=== PATIENT | female | born 1980 | race Caucasian/White ===

== ENCOUNTER 2023-11-11 21:15 | Emergency (ER) | payer OTHER, SELFPAY ==
[2023-11-11] VITALS (11 sets, daily range): BP systolic 121–135; BP diastolic 75–84; PULSE 88–102; TEMP 36.8; O2SAT 93–99; BMI 22.3
--- NOTE | 2023-11-11 21:29 | PC.NURSE ---
Patient reports eating a fast food sandwich approx. 30-60 minutes ago, reports allergy to tomato and there was a tomato on sandwich. Patient reports taking epi. pen immediately following. Denies any SOB. Reports only symptom is stomach cramping, nausea with dry heaves.
--- NOTE | 2023-11-11 21:49 | ED.NAVMDI1 ---
HPI - Nausea/Vomiting/Diarrhea General Chief complaint: Nausea/Vomiting/Diarrhea Stated complaint: NAUSEA/VOMITING Time Seen by Provider: 11/11/23 21:45 Source: patient Mode of arrival: walk-in History of Present Illness HPI Narrative: patient states she has an allergy to tomatoes. States Harish Alonso had catchup on her hamburger she took a bite and swallowed and became ill. describes dry heaving and loose stools. She took Benadry and used her Epi pen. She is now feeling better but followed instructions on the Epi pen that she should come to the hospital. No rash or dyspnea. Related Data Home Medications ?Medication ?Instructions ?Recorded ?Confirmed cetirizine 10 mg tablet 10 mg PO DAILY 11/11/23 11/11/23 cholecalciferol (vitamin D3) 10 400 unit PO DAILY 11/11/23 11/11/23 mcg (400 unit) tablet (Vitamin D3) dexlansoprazole 60 mg 60 mg PO DAILY 11/11/23 11/11/23 capsule,biphase delayed release diclofenac sodium 75 mg 75 mg PO Q12H 11/11/23 11/11/23 tablet,delayed release diphenoxylate-atropine 2.5 1 tab PO Q6H PRN diarrhea 11/11/23 11/11/23 mg-0.025 mg tablet epinephrine 0.3 mg/0.3 mL 0.3 mg subcut Q10M PRN anaphylaxis 11/11/23 11/11/23 injection, auto-injector hyoscyamine sulfate 0.125 mg tablet 0.125 mg PO Q4H PRN dyspepsia 11/11/23 11/11/23 midodrine 10 mg tablet 10 mg PO TID 11/11/23 11/11/23 omeprazole 40 mg capsule,delayed 40 mg PO DAILY 11/11/23 11/11/23 release ondansetron 4 mg disintegrating 4 mg PO Q6H PRN nausea and vomiting 11/11/23 11/11/23 tablet potassium chloride 20 mEq 20 meq PO DAILY 11/11/23 11/11/23 tablet,extended release(part/cryst) pramipexole 0.125 mg tablet 0.125 mg PO DAILY 11/11/23 11/11/23 pramipexole 0.25 mg tablet 0.25 mg PO .QHS 11/11/23 11/11/23 terbinafine HCl 250 mg tablet 250 mg PO DAILY 11/11/23 11/11/23 tizanidine 4 mg tablet 4 mg PO Q8H PRN muscle spasticity 11/11/23 11/11/23 venlafaxine 75 mg capsule,extended 75 mg PO DAILY 11/11/23 11/11/23 release 24 hr Allergies Allergy/AdvReac Type Severity Reaction Status Date / Time Penicillins Allergy Mild Rash Verified 11/11/23 21:26 Review of Systems ROS Status of ROS 10 or more systems reviewed and unremarkable except as noted in history and below Exam Constitutional Vital Signs, click to edit/add: Last Vital Signs Temp 98.2 F 11/11/23 21:20 Pulse 88 11/11/23 22:51 Resp 16 11/11/23 22:51 BP 121/75 11/11/23 22:51 Pulse Ox 97 11/11/23 22:51 O2 Del Method Room Air 11/11/23 22:51 Common normals: no apparent distress, average body habitus, oriented x3, no limitations and healthy appearing HENMT Common normals: normocephalic and head/scalp atraumatic Eye Common normals: PERRL, EOMs intact bilaterally and conjunctivae normal Respiratory Common normals: normal respiratory effort, no retractions, no use of accessory muscles and clear to auscultation bilaterally Cardio Common normals: regular rate, regular rhythm and S1 normal heart sound GI Common normals: Normal to inspection, nondistended, normoactive bowel sounds present, soft to palpation and non-tender Extremity Common normals: normal to inspection and full ROM Neuro Common normals: oriented x3, CN's II-XII intact bilaterally, moves all extremities and no focal motor deficits Psych Appearance: grossly normal Course Vital Signs Vital signs: Vital Signs Temperature 98.2 F 11/11/23 21:20 Pulse Rate 102 H 11/11/23 21:20 Respiratory Rate 16 11/11/23 21:20 Blood Pressure 135/84 11/11/23 21:20 Pulse Oximetry 99 11/11/23 21:20 Oxygen Delivery Method Room Air 11/11/23 21:20 Temperature 98.2 F 11/11/23 21:20 Pulse Rate 88 11/11/23 22:51 Respiratory Rate 16 11/11/23 22:51 Blood Pressure 121/75 11/11/23 22:51 Pulse Oximetry 97 11/11/23 22:51 Oxygen Delivery Method Room Air 11/11/23 22:51 Discharge Plan Discharge Stand Alone Forms: Portal Instructions Chief Complaint: Nausea/Vomiting/Diarrhea Clinical Impression: Allergy, food, Allergic reaction Patient Disposition: Home, Self-Care Prescriptions / Home Meds: No Action cetirizine 10 mg tablet 10 mg PO DAILY cholecalciferol (vitamin D3) [Vitamin D3] 10 mcg (400 unit) tablet 400 unit PO DAILY dexlansoprazole 60 mg capsule,biphase delayed releas 60 mg PO DAILY diclofenac sodium 75 mg tablet,delayed release (DR/EC) 75 mg PO Q12H diphenoxylate-atropine 2.5-0.025 mg tablet 1 tab PO Q6H PRN (Reason: diarrhea) epinephrine 0.3 mg/0.3 mL auto-injector 0.3 mg subcut Q10M PRN (Reason: anaphylaxis) hyoscyamine sulfate 0.125 mg tablet 0.125 mg PO Q4H PRN (Reason: dyspepsia) midodrine 10 mg tablet 10 mg PO TID omeprazole 40 mg capsule,delayed release(DR/EC) 40 mg PO DAILY ondansetron 4 mg tablet,disintegrating 4 mg PO Q6H PRN (Reason: nausea and vomiting) potassium chloride 20 mEq tablet,ER particles/crystals 20 meq PO DAILY pramipexole 0.125 mg tablet 0.125 mg PO DAILY pramipexole 0.25 mg tablet 0.25 mg PO .QHS terbinafine HCl 250 mg tablet 250 mg PO DAILY tizanidine 4 mg tablet 4 mg PO Q8H PRN (Reason: muscle spasticity) venlafaxine 75 mg capsule,extended release 24hr 75 mg PO DAILY Print Language: Nicaraguan Instructions: Food Allergy (ED) Referrals: Honorio Eaton MD [Primary Care Provider] - 1 week Discharge Date/Time: 11/11/23 23:11
[2023-11-11] MEDS: PREDNISONE 20 MG TABLET 60 MG PO (22:07)
== END 2023-11-11 23:11 | disposition home or self-care (01) ==
PROVIDERS: Emergency Provider Internal Medicine; PCP Family Medicine
DX: T78.1XXA Other adverse food reactions, not elsewhere classified, initial encounter (principal); R19.7 Diarrhea, unspecified; Z79.899 Other long term (current) drug therapy
CPT/HCPCS: 99283

== ENCOUNTER 2024-02-15 13:46 | Outpatient (OUT) | payer OTHER, SELFPAY ==
--- NOTE | 2024-02-15 13:50 | XR_ITS ---
[address] [address] Patient Name: FRAN ELLIS MRN: [id number] date: 1980 Sex: F Assigned Patient Location: LAB Current Patient Location: Accession/Order Number: [id number] Exam Date: 02/15/2024 13:52 Report Date: 02/19/2024 08:05 At the request of: ANJANA VASQUEZ Procedure: XR ribs BI min 4V w CXR1V EXAMINATION: XR ribs BI min 4V w CXR1V HISTORY: Rib Pain R07.81 COMPARISON: 01/03/2021 FINDINGS: LUNGS: No significant pulmonary parenchymal abnormalities. PLEURA: No pneumothorax, effusion, or pleural thickening. MEDIASTINUM: No visible mass or adenopathy. CARDIAC: No cardiomegaly or cardiac silhouette abnormality. RIBS: No acute rib fracture OTHER: Negative. XR/XR ribs BI min 4V w CXR1V IMPRESSION: Clear lungs No acute rib fracture Electronically authenticated by: EMILY HARRIS Date: 02/19/2024 08:05
== END 2024-02-15 13:47 | disposition home or self-care (01) ==
LOC: LAB 13:47
PROVIDERS: PCP Family Medicine; Visit Provider Family Medicine
DX: R07.81 Pleurodynia (principal)
CPT/HCPCS: 71111

== ENCOUNTER 2024-06-16 20:07 | Emergency (ER) | payer OTHER, SELFPAY ==
[2024-06-16 20:17] VITALS: BP 137/81; PULSE 81; TEMP 36.6; O2SAT 99; BMI 25.1
--- NOTE | 2024-06-16 20:28 | ED_ITS ---
HPI - Dental/Oral General Stated complaint: dental Time Seen by Provider: 06/16/24 20:13 History of Present Illness HPI Narrative: pt had a filling fall out of a bottom right molar. She went to because of the pain and was prescribed tylenol with codeine and clindamycin. The Toradol in jection that they gave her helped at first but has since worn off. She complains of pain in that area. Apparently she could not get in with her dentist. Related Data Home Medications ?Medication ?Instructions ?Recorded ?Confirmed cetirizine 10 mg tablet 10 mg PO DAILY 11/11/23 11/11/23 cholecalciferol (vitamin D3) 10 400 unit PO DAILY 11/11/23 11/11/23 mcg (400 unit) tablet (Vitamin D3) dexlansoprazole 60 mg 60 mg PO DAILY 11/11/23 11/11/23 capsule,biphase delayed release diclofenac sodium 75 mg 75 mg PO Q12H 11/11/23 11/11/23 tablet,delayed release diphenoxylate-atropine 2.5 1 tab PO Q6H PRN diarrhea 11/11/23 11/11/23 mg-0.025 mg tablet epinephrine 0.3 mg/0.3 mL 0.3 mg subcut Q10M PRN anaphylaxis 11/11/23 11/11/23 injection, auto-injector hyoscyamine sulfate 0.125 mg tablet 0.125 mg PO Q4H PRN dyspepsia 11/11/23 11/11/23 midodrine 10 mg tablet 10 mg PO TID 11/11/23 11/11/23 omeprazole 40 mg capsule,delayed 40 mg PO DAILY 11/11/23 11/11/23 release ondansetron 4 mg disintegrating 4 mg PO Q6H PRN nausea and vomiting 11/11/23 11/11/23 tablet potassium chloride 20 mEq 20 meq PO DAILY 11/11/23 11/11/23 tablet,extended release(part/cryst) pramipexole 0.125 mg tablet 0.125 mg PO DAILY 11/11/23 11/11/23 pramipexole 0.25 mg tablet 0.25 mg PO .QHS 11/11/23 11/11/23 terbinafine HCl 250 mg tablet 250 mg PO DAILY 11/11/23 11/11/23 tizanidine 4 mg tablet 4 mg PO Q8H PRN muscle spasticity 11/11/23 11/11/23 venlafaxine 75 mg capsule,extended 75 mg PO DAILY 11/11/23 11/11/23 release 24 hr clindamycin HCl 300 mg capsule 300 mg PO Q8H 06/16/24 06/16/24 Previous Rx's ?Medication ?Instructions ?Recorded ketorolac 10 mg tablet 10 mg PO Q8H PRN pain 5 days #15 06/16/24 tabs Allergies Allergy/AdvReac Type Severity Reaction Status Date / Time Penicillins Allergy Mild Rash Verified 06/16/24 20:21 PFSH PFSH Social History Little interest or pleasure in doing things: not at all Feeling down, depressed, or hopeless: not at all Exam Narrative Exam Narrative: General: The patient is comfortable, alert and oriented x3, well appearing, non toxic in no apparent distress. Head: Atraumatic and normocephalic. Eyes: Normal conjunctiva ENT: The oropharynx is normal. No pharyngeal erythema, uvular edema, tonsillar exudates, asymmetry or trismus. Uvula is midline. Mouth is normal to inspection with the exception of a pain on percussion of the tooth #30 which is missing a filling. There is no evidence of facial asymmetry or abscess formation. Floor of the mouth is soft. No tenderness in the submental or submandibular space. No tongue elevation or deviation. The patient has no evidence of periapical abscess, gingivitis or other acute pathology. Airway is patent. Neck: The neck demonstrates normal range of motion. No meningeals signs are pre sent. No stridor. No masses or lymphandenopathy noted. Respiratory: No acute distress, lungs are clear to auscultation, no wheezing, rhonchi, or rales noted. No stridor or retractions are noted. Cardiovascular: Regular rate and rhythm Skin: The skin exam shows no evidence of rashes Neuro: Alert and oriented x4, normal speech Lymphatic: No cervical lymphadenopathy Constitutional Vital Signs, click to edit/add: Last Vital Signs Temp 97.8 F 06/16/24 20:17 Pulse 81 06/16/24 20:17 Resp 18 06/16/24 20:17 BP 137/81 06/16/24 20:17 Pulse Ox 99 06/16/24 20:17 O2 Del Method Room Air 06/16/24 20:17 Course Vital Signs Vital signs: Vital Signs Temperature 97.8 F 06/16/24 20:17 Pulse Rate 81 06/16/24 20:17 Respiratory Rate 18 06/16/24 20:17 Blood Pressure 137/81 06/16/24 20:17 Pulse Oximetry 99 06/16/24 20:17 Oxygen Delivery Method Room Air 06/16/24 20:17 Temperature 97.8 F 06/16/24 20:17 Pulse Rate 81 06/16/24 20:17 Respiratory Rate 18 06/16/24 20:17 Blood Pressure 137/81 06/16/24 20:17 Pulse Oximetry 99 06/16/24 20:17 Oxygen Delivery Method Room Air 06/16/24 20:17 MDM - Dental/Oral MDM Narrative Medical decision making narrative: The patient is already on clindamycin and has Tylenol with codeine for pain. She was given an oral dose of Toradol and discharged home with a prescription for additional Toradol. She was instructed to avoid any additional NSAIDs i ncluding Motrin, ibuprofen, Advil and Aleve, while taking the Toradol. She was also given a dentist referral list on discharge. Discharge Plan Discharge Clinical Impression: Pain, dental Patient Disposition: Home, Self-Care Time of Disposition Decision: 20:30 Prescriptions / Home Meds: New ketorolac 10 mg tablet 10 mg PO Q8H PRN (Reason: pain) 5 Days Qty: 15 0RF No Action clindamycin HCl 300 mg capsule 300 mg PO Q8H cetirizine 10 mg tablet 10 mg PO DAILY cholecalciferol (vitamin D3) [Vitamin D3] 10 mcg (400 unit) tablet 400 unit PO DAILY dexlansoprazole 60 mg capsule,biphase delayed releas 60 mg PO DAILY diclofenac sodium 75 mg tablet,delayed release (DR/EC) 75 mg PO Q12H diphenoxylate-atropine 2.5-0.025 mg tablet 1 tab PO Q6H PRN (Reason: diarrhea) epinephrine 0.3 mg/0.3 mL auto-injector 0.3 mg subcut Q10M PRN (Reason: anaphylaxis) hyoscyamine sulfate 0.125 mg tablet 0.125 mg PO Q4H PRN (Reason: dyspepsia) midodrine 10 mg tablet 10 mg PO TID omeprazole 40 mg capsule,delayed release(DR/EC) 40 mg PO DAILY ondansetron 4 mg tablet,disintegrating 4 mg PO Q6H PRN (Reason: nausea and vomiting) potassium chloride 20 mEq tablet,ER particles/crystals 20 meq PO DAILY pramipexole 0.125 mg tablet 0.125 mg PO DAILY pramipexole 0.25 mg tablet 0.25 mg PO .QHS terbinafine HCl 250 mg tablet 250 mg PO DAILY tizanidine 4 mg tablet 4 mg PO Q8H PRN (Reason: muscle spasticity) venlafaxine 75 mg capsule,extended release 24hr 75 mg PO DAILY Print Language: [place]guill[place] Instructions: Toothache (ED) Additional Instructions: give patient our Dentist referral list
[2024-06-16] MEDS: KETOROLAC TROMETHAMINE 10 MG TABLET PO (20:49)
== END 2024-06-16 20:54 | disposition home or self-care (01) ==
PROVIDERS: Emergency Provider Emergency Medicine; PCP Family Medicine
DX: K08.89 Other specified disorders of teeth and supporting structures (principal)
CPT/HCPCS: 99283

== ENCOUNTER 2024-09-05 12:45 | Outpatient (OUT) | payer OTHER, SELFPAY ==
--- NOTE | 2024-09-05 12:50 | MR_ITS ---
[address] [address] Patient Name: FRAN ELLIS MRN: [facility]:[id number] date: 1980 Sex: F Assigned Patient Location: MRI Current Patient Location: MRI Accession/Order Number: [id number] Exam Date: 09/05/2024 16:26 Report Date: 09/05/2024 16:35 At the request of: FORREST CURTIS NP Procedure: MR head/brain wo/w con MR head/brain wo/w con 09/05/2024 2:25 PM SIGN AND SYMPTOMS: Hyperreflexia, demyelinating disease PROTOCOL: Multiplanar multisequence MR images of the brain with and without IV contrast COMPARISON: None. FINDINGS: Extra axial spaces: Age appropriate. Hemorrhage: None. Ventricular system: Within normal limits. Basal cisterns: Within normal limits and not effaced. Cerebral parenchyma: There is a single nonspecific focus of T2 FLAIR hyperintense signal in the parasagittal right frontal subcortical white matter. Midline shift: None.. Cerebellum: Within normal limits. Brainstem: Within normal limits. OTHER: Calvarium: Normal marrow signal. Vascular system: Satisfactory flow voids within the anterior and posterior circulation. Visualized Paranasal sinuses: Their is polypoid mucosal thickening in the left maxillary sinus. Visualized Orbits: Within normal limits. Visualized upper cervical spine: Within normal limits. Sella and skull base: Within normal limits. MR/MR head/brain wo/w con IMPRESSION: No acute intracranial pathology or abnormal postcontrast enhancement. There is a single nonspecific focus of T2 FLAIR hyperintense signal in the parasagittal right frontal subcortical white matter. Their is polypoid mucosal thickening in the left maxillary sinus. Impression dictated by: Sai Maurice M.D.09/05/2024 4:35 PM Dictation Location: [place] [id number] Electronically authenticated by: [id number] Y Date: 09/05/2024 16:35
--- NOTE | 2024-09-05 12:51 | MR_ITS ---
[address] [address] Patient Name: FRAN ELLIS MRN: [facility]:[id number] date: 1980 Sex: F Assigned Patient Location: MRI Current Patient Location: MRI Accession/Order Number: [id number] Exam Date: 09/05/2024 16:22 Report Date: 09/05/2024 16:26 At the request of: FORREST CURTIS NP Procedure: MR cervical spine wo/w con MR cervical spine wo/w con 09/05/2024 2:25 PM SIGNS AND SYMPTOMS: Left-sided, possible demyelinating disease PROTOCOL: Multiplanar multisequence MR images of the cervical spine were obtained with and without IV contrast COMPARISON: Multiplanar multisequence MR images of the cervical spine without IV contrast FINDINGS: There is straightening and mild reversal of the normal cervical lordosis. The bones are otherwise in anatomic alignment. There is preservation of vertebral body heights. There is mild disc height loss at C4-C5, C5-6, and C6-C7. The marrow signal is within normal limits. The cord is normal in signal. No epidural or paraspinous fluid collection is appreciated. The visualized paraspinous soft tissues are within normal limits. The prevertebral soft tissues are within normal limits. At C2-C3: There is a normal disc, central canal, and neural foramen. At C3-C4: There is a normal disc, central canal, and neural foramen. At C4-C5: There is a broad-based disc bulge without joint spurring. There is mild spinal canal narrowing and mild bilateral neural foraminal narrowing. At C5-C6: There is facet and operative joint degenerative change with a mild broad-based disc bulge. There is mild left neural foraminal narrowing with mild spinal canal narrowing. At C6-C7: There is a broad-based disc bulge without joint spurring and facet hypertrophy. There is mild bilateral neural foraminal narrowing without significant spinal canal narrowing. At C7-T1: There is a normal disc, central canal, and neural foramen. MR/MR cervical spine wo/w con IMPRESSION: No cord compression, cord signal abnormality, or abnormal postcontrast enhancement. At C4-C5: There is a broad-based disc bulge without joint spurring. There is mild spinal canal narrowing and mild bilateral neural foraminal narrowing. At C5-C6: There is facet and operative joint degenerative change with a mild broad-based disc bulge. There is mild left neural foraminal narrowing with mild spinal canal narrowing. At C6-C7: There is a broad-based disc bulge without joint spurring and facet hypertrophy. There is mild bilateral neural foraminal narrowing without significant spinal canal narrowing. Impression dictated by: Sai Maurice M.D.09/05/2024 4:26 PM Dictation Location: [place] [address] Electronically authenticated by: [id number] Y Date: 09/05/2024 16:26
--- OUTSIDE RECORDS SUMMARY | 2024-09-05 12:52 | XMS_ITS | CCD ---
Author Organization [facility] Care Team Providers Care Lead Mechanical Engineer Name Role Phone NAWRAS, ALI T Unavailable Unavailable NAWRAS, ALI T Unavailable Unavailable NADEREMarian, HONORIO Unavailable Unavailable NADERER, HONORIO Unavailable Unavailable TN Unavailable Unavailable NAWRAS, ALI T Unavailable Unavailable TN Unavailable Unavailable BENITO ROSS Unavailable Unavailable PHYSICIAN, DEFAULT Unavailable Unavailable PHYSICIAN, DEFAULT Unavailable Unavailable NAWRAS, ALI T Unavailable Unavailable NAWRAS, ALI T Unavailable Unavailable NADEREMarian, HONORIO Unavailable Unavailable NADERER, HONORIO Unavailable Unavailable Unavailable Primary Care Provider Unavailabl e Unavailable Primary Care Provider Unavailabl e NADERER, DR HONORIO Bowen Primary Care Unavailable ZIEBER, DR CHEYENNE Fonseca Consulting Unavailable PAY, DR ARCE Admitting Unavailable PAY, DR ARCE Attending Unavailable PAY, DR ARCE Consulting Unavailable WEST, DR EMILY Willis Consulting Unavailable NADERER, DR HONORIO Bowen Primary Care Unavailable NADERER, DR HONORIO Bowen Admitting Unavailable NADERER, DR HONORIO Bowen Attending Unavailable NADERER, DR HONORIO Bowen Consulting Unavailable NADERER, DR HONORIO Bowen Admitting Unavailable NADERER, DR HONORIO Bowen Attending Unavailable NADERER, DR HONORIO Bowen Consulting Unavailable NADERER, DR HONORIO Bowen Primary Care Unavailable NADERER, DR HONORIO Bowen Primary Care Unavailable FAWWAD, MELENDEZ H Admitting Unavailable FAWWAD, MELENDEZ H Attending Unavailable FAWWAD, MELENDEZ H Consulting Unavailable NADERER, DR HONORIO Bowen Primary Care Unavailable NADERER, DR HONORIO Bowen Admitting Unavailable NADERER, DR HONORIO Bowen Attending Unavailable NADERER, DR HONORIO Bowen Consulting Unavailable NADERER, DR HONORIO Bowen Admitting Unavailable NADERER, DR HONORIO Bowen Attending Unavailable NADERER, DR HONORIO Bowen Primary Care Unavailable NADERER, DR HONORIO Bowen Admitting Unavailable NADERER, DR HONORIO Bowen Attending Unavailable NADERER, DR HONORIO Bowen Consulting Unavailable PEDRO, DR HONORIO Bowen Primary Care Unavailable Pedro WASHINGTON, Honorio Primary Care Provider [phone] Pedro WASHINGTON, Honorio Primary Care Provider [phone] Honorio Vasquez MD Primary Care Provider Pedro WASHINGTON, Honorio Walls Primary Care Provider HONORIO VASQUEZ Referring Unavailable BUTNARIU, TANNER I Attending Unavailable HONORIO VASQUEZ Primary Care Unavailable HONORIO VASQUEZ Primary Care Unavailable GRACE FLORES Attending Unavailable SELF, SELF Referring Unavailable BUTNARIU, TANNER I Attending Unavailable REMY, BAILEY Referring Unavailable SELF, SELF Referring Unavailable BUTNARIU, TANNER I Attending Unavailable SELF, SELF Referring Unavailable BUTNARIU, TANNER I Attending Unavailable BUTNARIU, TANNER I Attending Unavailable BUTNARIU, TANNER I Referring Unavailable HONORIO VASQUEZ Primary Care Unavailable BUTNARIU, TANNER I Referring Unavailable BUTNARIU, TANNER I Attending Unavailable HONORIO VASQUEZ Primary Care Unavailable BUTNARIU, TANNER I Attending Unavailable SELF, SELF Referring Unavailable HONORIO VASQUEZ Primary Care Unavailable BUTNARIU, TANNER I Attending Unavailable SELF, SELF Referring Unavailable HONORIO VASQUEZ Primary Care Unavailable BUTNARIU, TANNER I Referring Unavailable BUTNARIU, TANNER I Attending Unavailable Honorio Vasquez MD Primary Care Provider HONORIO VASQUEZ Primary Care Unavailabl e SARITHA, HALEY Attending Unavailable Honorio Vasquez MD Primary Care Unavail able Sylvia Escobar PA-C Attending Unavaila ble No, Physician Primary Care Provider Unavailabl e LEATHA HAWKINS Attending Unavai lable NO, PHYSICIAN Primary Care Unavailable LEATHA HAWKINS Referring Unavai lable LEATHA HAWKINS Attending Unavai lable NO, PHYSICIAN Primary Care Unavailable LEATHA HAWKINS Referring Unavai lable ALLAN, LEATHA CISNEROS Attending Unavai lable NO, PHYSICIAN Primary Care Unavailable HONORIO VASQUEZ Primary Care Unavailabl e JENNIFER ADHIKARI Attending HONORIO Arias Primary Care HONORIO Arias Primary Care HONORIO Arias Attending Unavailable LYNETTE JUSTICE Attending Unavailable LYNETTE JUSTICE Referring Unavailable LYNETTE JUSTICE Attending Unavailable Honorio Vasquez MD Primary Care Provider Honorio Vasquez MD Unavailable FORREST KIRAN Attending Unavailable LYNETTE JUSTICE Attending Unavailable Allergies Allergy Classification Reported Allergen(s) Allergy Type Date of Onset Reaction(s) Facility Penicillins (antibiotic) (5 sources) Penicillins Drug Allergy 8 [facility] (2 sources) Amoxicillin; Translations: [AMOXICILLIN] Drug Allergy 7 [facility] (14 sources) Penicillins Propensity to adverse reactions to drug 8 [facility] Work Phone: (20 sources) Amoxicillin Drug Allergy 7 Unknown, GI intolerance [facility] (1 source) Amoxicillin Drug Allergy 7 [facility] (2 sources) Latex; Translations: [LATEX] Drug allergy (disorder) 4 [facility] (5 sources) tomato allergenic extract; Translations: [TOMATO] Drug Allergy 4 Unknown [facility] (3 sources) Penicillins Propensity to adverse reactions to drug 8 [facility] (4 sources) Latex Propensity to adverse reactions to drug 4 Other (See Comments), Rash, Unknown [facility] (1 source) tomato allergenic extract Drug Allergy 3 Anaphylaxis [facility] (10 sources) Latex Allergy to substance 4 Rash [facility] (10 sources) tomato allergenic extract Drug Allergy 4 Anaphylaxis, Unknown [facility] Medications Current Medications Medication Drug Class(es) Dates Sig (Normalized) Sig (Original) acetaminophen 300 mg / codeine phosphate 30 mg oral tablet (5 sources) Opioid Agonist Start: 06-16-2024 take 1 tablet by mouth every six hours as needed acetaminophen-cod eine (Tylenol w/ Codeine #3) 300-30 MG tablet Take 1 tablet by mouth every 6 (six) hours if needed 06/16/2024 Active acetaminophen 325 mg / HYDROcodone bitartrate 5 mg oral tablet (7 sources) Opioid Agonist Start: 07-21-2023 End: 07-24-2023 HYDROcodone-aceta minophen (NORCO) 5-325 mg per tablet Indications: Left elbow fracture, closed, initial encounter Take 1 (one) tablet by mouth every 4 (four) hours as needed for pain (Days supply per fill: 3) Do not take while working or driving. . 18 tablet 0 07/21/2023 07/24/2023 Active Start: 04-20-2022 End: 04-20-2022 HYDROcodone-acetaminophen (N ORCO) 5-325 MG per tablet 1 tablet Start: 04-20-2022 End: 04-23-2022 HYDROcodone-acetaminophen (N ORCO) 5-325 MG per tablet Indications: Sprain of right knee, unspecified ligament, initial encounter , Knee effusion, right Take 1 tablet by mouth every 8 hours as needed for Pain for up to 3 days. Intended supply: 3 days. Take lowest dose possible to manage pain 9 tablet 0 04/20/2022 04/23/2022 Active atropine sulfate 0.025 mg / diphenoxylate hydrochloride 2.5 mg oral tablet (20 sources) Anticholinergic, Cholinergic Muscarinic Antagonist, Antidiarrheal Start: 01-17-2024 End: 07-15-2024 take 1 tablet by mouth four times daily as needed diphenoxylate-atropine (Lomotil) 2.5-0.025 MG tablet Indications: Diarrhea, unspecified TAKE 1 TABLET BY MOUTH FOUR TIMES DAILY NEEDED 60 tablet 2 07/15/2024 Active take 1 tablet by enoch th four times daily as needed diphenoxylate-atropine (LOMOTIL) 2.5-0.0 25 mg per tablet Take 1 (one) tablet by mouth 4 (four) times a day as needed . 0 Active diphenoxylate-at ropine 2.5-0.025 MG tablet EC/DR diphenoxylate-atropine 2.5 mg-0.025 mg tablet 0 Active benzonatate 200 mg oral capsule (7 sources) Non-narcotic Antitussive Start: 11-27-2021 take 1 capsule by mouth three times daily as needed benzonatate 200 MG capsule TAKE 1 CAPSULE BY MOUTH THREE TIMES DAILY NEEDED 0 11/27/2021 Active 12 hr buPROPion hydrochloride 150 mg extended release oral tablet (13 sources) Aminoketone Start: 12-06-2021 take 1 tablet by mouth once daily, then take 1 tablet by mouth twice daily buPROPion (WELLBUTRIN SR) 150 MG 12 hr tablet TAKE 1 TABLET BY MOUTH DAILY FOR 3 DAYS then TAKE 1 TABLET BY MOUTH TWICE DAILY 0 12/06/2021 Active carboxymethylcellulose sodium 5 mg/ml / glycerin 10 mg/ml / polysorbate 80 5 mg/ml ophthalmic solution (10 sources) Non-Standardized Chemical Allergen Start: 06-23-2023 Refresh Optive Advanced 0.5-1-0.5 % solution Administer 1 drop into affected eye(s) 3 (three) times a day as needed (as needed for dry eye up to 5 days) 06/23/2023 Active cetirizine hydrochloride 10 mg oral tablet (10 sources) Histamine-1 Receptor Antagonist Start: 03-05-2024 take 1 tablet by mouth once daily cetirizine (ZyrTEC) 10 MG tablet Indications: Chronic rhinosinusitis TAKE 1 TABLET BY MOUTH DAILY 30 tablet 5 03/05/2024 Active cholecalciferol 0.01 mg oral tablet (20 sources) Vitamin D Start: 09-20-2023 take 1 tablet by mouth once daily Cholecalciferol (VIT D3) 10 MCG (400 UNIT) tablet Indications: Vitamin D deficiency Take 1 tablet (10 mcg) by mouth Daily 30 tablet 5 09/20/2023 Active take 1 tablet by mouth once isidro y cholecalciferol, vitamin D3, 400 unit Tab Take 1 (one) tablet (400 Units total) by mouth daily . 0 Active clindamycin 300 mg oral capsule (5 sources) Lincosamide Antibacterial Start: 06-16-2024 take 1 capsule by mouth three times daily at mealtime clindamycin (Cleocin) 300 MG capsule Take 1 capsule (300 mg) by mouth 3 times a day for 10 days. Take with food 06/16/2024 Active cyclobenzaprine hydrochloride 10 mg oral tablet (2 sources) Muscle Relaxant Start: 07-30-2024 End: 10-28-2024 take 1 tablet by mouth at bedtime cyclobenzaprine (Flexeril) 10 MG tablet Indications: Migraine without aura and without status migrainosus, not intractable (CMS/HCC) Take 1 tablet (10 mg) by mouth at bedtime 30 tablet 2 07/30/2024 10/28/2024 Active dexlansoprazole 60 mg delayed release oral capsule (5 sources) Proton Pump Inhibitor Start: 03-14-2023 take 1 capsule by mouth once daily dexlansoprazole (DEXILANT) 60 mg capsule Take 1 (one) capsule (60 mg total) by mouth daily . 0 03/14/2023 Active Start: 11-06-2022 take 1 capsule by [facility] once daily dexlansoprazole (DEXILANT) 60 MG CPDR delayed release capsule Take 1 capsule by mouth daily 0 11/06/2022 Active diclofenac sodium 75 mg delayed release oral tablet (1 source) Nonsteroidal Anti-inflammatory Drug Start: 12-27-2022 End: 01-01-2023 take 1 tablet by mouth twice daily as needed for pain diclofenac (VOLTAREN) 75 MG EC tablet Take 1 tablet by mouth 2 times daily as needed for Pain 10 tablet 0 12/27/2022 01/01/2023 Active eluxadoline 75 mg oral tablet (10 sources) mu-Opioid Receptor Agonist take 1 tablet by mouth twice daily eluxadoline 75 mg Tab Take 1 (one) tablet (75 mg total) by mouth 2 (two) times a day . 0 Active [id number] 0.3 ml EPINEPHrine 1 mg/ml auto-injector (10 sources) alpha-Adrenergic Agonist, beta-Adrenergic Agonist, Catecholamine Start: 02-20-2023 EPINEPHrine (Epipen) 0.3 MG/0.3ML injection syringe Inject 1 Syringe as directed 1 (one) time 02/20/2023 Active fluticasone propionate 0.05 mg/actuat metered dose nasal spray (10 sources) Corticosteroid Start: 03-05-2024 take 1-2 spray(s) nasal route once daily fluticasone (Flonase) 50 MCG/ACT nasal spray Indications: Chronic rhinosinusitis instill 1-2 sprays IN EACH NOSTRIL DAILY *shake gently, BEFORE first use-prime pump, clean tip after use* 16 g 5 03/05/2024 Active hyoscyamine sulfate 0.125 mg oral tablet (20 sources) Start: 04-28-2024 take 1 tablet by mouth every four hours as needed hyoscyamine (Anaspaz,Levsin) 0.125 MG tablet Indications: Irritable bowel syndrome with diarrhea TAKE 1 TABLET BY MOUTH EVERY 4 HOURS NEEDED *MUST LAST 30 DAYS* 120 tablet 5 04/28/2024 Active Start: 11-06-2023 take 1 tablet by enoch th every four hours as needed hyoscyamine (Anaspaz,Levsin) 0.125 MG tablet Indications: Irritable bowel syndrome with diarrhea TAKE 1 TABLET BY MOUTH EVERY 4 HOURS NEEDED *MUST LAST 30 DAYS* 120 tablet 5 11/06/2023 Active hyoscyamine (LEV SIN) 0.125 mg tablet hyoscyamine sulfate 0.125 mg tablet 0 Active take 1 tablet by enoch th every four hours as needed hyoscyamine (ANASPAZ;LEVSIN) 125 MCG tablet Take 1 tablet by mouth every 4 hours as needed for Cramping 0 Active ibuprofen 800 mg oral tablet (7 sources) Nonsteroidal Anti-inflammatory Drug Start: 06-16-2024 ibuprofen 800 MG tablet TAKE 1 TABLET BY MOUTH EVERY 6 TO 8 HOURS NEEDED FOR PAIN for TEN days; take WITH FOOD 06/16/2024 Active Start: 09-10-2022 End: 09-10-2022 ibuprofen (ADVIL;MOTRIN) tab let 800 mg Start: 04-20-2022 End: 04-20-2022 ibuprofen (ADVIL;MOTRIN) tab let 600 mg ketorolac tromethamine 10 mg oral tablet (5 sources) Nonsteroidal Anti-inflammatory Drug, Cyclooxygenase Inhibitor Start: 06-16-2024 take 1 tablet by mouth every eight hours as needed for pain ketorolac (Toradol) 10 MG tablet TAKE 1 TABLET BY MOUTH EVERY 8 HOURS NEEDED FOR PAIN FOR 5 DAYS 06/16/2024 Active lidocaine 0.04 mg/mg medicated patch (2 sources) Antiarrhythmic, Amide Local Anesthetic Start: 11-28-2020 lidocaine 4 % external patch 1 patch Start: 11-28-2020 End: 12-28-2020 apply 1 dose transdermal route once daily lidocaine (LIDODERM) 5 % Place 1 patch onto the skin daily 12 hours on, 12 hours off. 30 patch 0 11/28/2020 12/28/2020 Active methocarbamol 500 mg oral tablet (10 sources) Muscle Relaxant Start: 02-07-2024 take 1 tablet by mouth in the morning methocarbamol (Robaxin) 500 MG tablet Indications: Cervical radiculopathy , Numbness and tingling , Neck pain Take 1 tablet (500 mg) by mouth in the morning and 1 tablet (500 mg) before bedtime. 20 tablet 2 02/07/2024 Active midodrine hydrochloride 10 mg oral tablet (20 sources) alpha-Adrenergi c Agonist Start: 03-05-2024 take 1 tablet by mouth three times daily midodrine (Proamatine) 10 MG tablet Indications: Syncope and collapse TAKE 1 TABLET BY MOUTH THREE TIMES DAILY 90 tablet 5 03/05/2024 Active Start: 06-18-2023 take 1 tablet by enoch three times daily midodrine (PROAMATINE) 10 MG tablet Take 1 (one) tablet (10 mg total) by mouth 3 (three) times a day . 0 06/18/2023 Active take 1 tablet by mouth once mido drine (PROAMATINE) 2.5 MG tablet Take 1 (one) tablet (2.5 mg total) by mouth once . 0 Active take 1 tablet by enoch th three times daily midodrine (PROAMATINE) 2.5 MG tablet Take 1 tablet by mouth 3 times daily 0 Active 24 hr nicotine 0.875 mg/hr transdermal system (7 sources) Cholinergic Nicotinic Agonist Start: 09-14-2021 apply 1 dose transdermal route once daily nicotine 21 MG/24HR Patch 24 HR patch APPLY 1 (ONE) patch to the skin DAILY 0 09/14/2021 Active olopatadine 1 mg/ml ophthalmic solution (13 sources) Histamine-1 Receptor Inhibitor Start: 06-23-2023 take 1 drop(s) into the eye(s) in the morning olopatadine (Patanol) 0.1 % ophthalmic solution Administer 1 drop into both eyes in the morning and 1 drop before bedtime. 06/23/2023 Active Start: 06-23-2023 take 1 drop(s) into the eye(s) at bedtime olopatadine (PATANOL) 0.1 % ophthalmic solution administer 1 drop into both eyes in the morning and before bedtime for 5 (FIVE) days 0 06/23/2023 Active omeprazole 40 mg delayed release oral capsule (10 sources) Proton Pump Inhibitor Start: 09-20-2023 take 1 capsule by mouth in the morning omeprazole (PriLOSEC) [address] capsule Indications: Gastroesophageal reflux disease without esophagitis Take 1 capsule (40 mg) by mouth in the morning and 1 capsule (40 mg) before bedtime. 60 capsule 5 09/20/2023 Active ondansetron 4 mg disintegrating oral tablet (20 sources) Serotonin-3 Receptor Antagonist Start: 03-17-2024 ondansetron ODT (Zofran-ODT) 4 MG disintegrating tablet Indications: Drug induced acute pancreatitis without necrosis or infection DISSOLVE 1 (ONE) TABLET ON THE TONGUE EVERY 6 HOURS NEEDED 30 tablet 3 03/17/2024 Active Start: 07-17-2023 ondansetron (Z OFRAN-ODT) 4 MG disintegrating tablet take 1 tablet by enoch th every eight hours as needed for nausea ondansetron (ZOFRAN) 4 MG tablet Take 1 tablet by mouth every 8 hours as needed for Nausea or Vomiting 0 Active microencapsulated potassium chloride 20 meq extended release oral tablet (10 sources) Start: 09-20-2023 take 1 tablet by mouth once daily potassium chloride CR (Klor-Con M20) 20 MEQ ER tablet Indications: Hypokalemia Take 1 tablet (20 mEq) by mouth Daily Do not crush or chew. 30 tablet 5 09/20/2023 Active pramipexole dihydrochloride 0.25 mg oral tablet (13 sources) Nonergot Dopamine Agonist Start: 09-20-2023 take 1 tablet by mouth at bedtime pramipexole (Mirapex) 0.25 MG tablet Indications: Restless leg syndrome Take 1 tablet (0.25 mg) by mouth at bedtime 30 tablet 5 09/20/2023 Active Start: 07-17-2023 pramipexole (M IRAPEX) 0.125 MG tablet predniSONE 10 mg oral tablet (16 sources) Start: 10-31-2023 take 6 tablets by mouth once daily, then take 4 tablets by mouth once daily, then take 2 tablets by mouth once daily, then take 1 tablet by mouth once daily predniSONE (Deltasone) 10 MG tablet Indications: Nummular eczema 6 PO daily x 3 days, 4 PO daily x 3 days, 2 PO daily x 3 days, 1 PO daily x 3 days 39 tablet 10/31/2023 Active Start: 09-22-2022 End: 10-04-2022 take 2 tablets by mouth once daily, then take 1.5 tablets by mouth once daily, then take 1 tablet by mouth once daily, then take 0.5 tablet by mouth once daily predniSONE (DELTASONE) 20 MG tablet Take 2 tablets by mouth daily for 3 days, THEN 1.5 tablets daily for 3 days, THEN 1 tablet daily for 3 days, THEN 0.5 tablets daily for 3 days. 15 tablet 0 09/22/2022 10/04/2022 Active Start: 09-10-2022 End: 09-10-2022 predniSONE (DELTASONE) table t 60 mg End: 09-22-2022 take 1 tablet by mouth once daily predniSONE (DELTASONE) 10 MG tablet Take 10 mg by mouth daily Taper Dose 0 09/22/2022 Discontinued (Therapy completed) rifAXIMin 550 mg oral tablet (1 source) Rifamycin Antibacterial Start: 11-06-2022 End: 11-20-2022 take 1 tablet by mouth three times daily rifAXIMin 550 MG tablet Indications: Irritable bowel syndrome with diarrhea , Gas bloat syndrome Take 1 tablet by mouth 3 (three) times a day for 14 days. 42 tablet 0 11/06/2022 11/20/2022 Active rimegepant 75 mg disintegrating oral tablet (2 sources) Start: 03-17-2024 End: 04-16-2024 take 1 tablet by mouth once Rimegepant Sulfate (Nurtec) 75 MG tablet dispersible Indications: Migraine without aura and without status migrainosus, not intractable (CMS/HCC) Take 1 tablet by mouth 1 (one) time if needed (onset of migraine) 8 tablet 11 03/17/2024 04/16/2024 Active SUMAtriptan 100 mg oral tablet (2 sources) Serotonin-1b and Serotonin-1d Receptor Agonist Start: 07-30-2024 End: 10-28-2024 take 1 tablet by mouth once SUMAtriptan (Imitrex) 100 MG tablet Indications: Migraine without aura and without status migrainosus, not intractable (CMS/HCC) Take 1 tablet (100 mg) by mouth 1 (one) time if needed for migraine (may repeat x1) 9 tablet 2 07/30/2024 10/28/2024 Active tacrolimus 0.001 mg/mg topical ointment (13 sources) Calcineurin Inhibitor Immunosuppressant Start: 04-04-2024 tacrolimus (Protopic) 0.1 % ointment Indications: Nummular dermatitis APPLY TO THE AFFECTED AREA(S) topically TWICE DAILY 60 g 3 04/04/2024 Active Start: 12-17-2023 tacrolimus (Pr otopic) 0.1 % ointment Indications: Nummular dermatitis APPLY TO THE AFFECTED AREA(S) TWICE DAILY 60 g 3 12/17/2023 Active Start: 07-17-2023 tacrolimus (TN OTOPIC) 0.1 % ointment terbinafine 250 mg oral tablet (13 sources) Allylamine Antifungal Start: 10-05-2023 take 1 tablet by mouth once daily terbinafine (LamISIL) 250 MG tablet Indications: Tinea unguium TAKE 1 TABLET BY MOUTH DAILY 30 tablet 2 10/05/2023 Active Start: 06-17-2023 take 1 tablet by enoch once daily terbinafine HCL (LAMISIL) 250 mg tablet Take 1 (one) tablet (250 mg total) by mouth daily . 0 06/17/2023 Active topiramate 25 mg oral tablet (2 sources) Start: 07-30-2024 End: 07-30-2025 take 1 tablet by mouth in the morning topiramate (Topamax) 25 MG tablet Indications: Migraine without aura and without status migrainosus, not intractable (CMS/HCC) Take 1 tablet (25 mg) by mouth in the morning and 1 tablet (25 mg) before bedtime. 60 tablet 2 07/30/2024 07/30/2025 Active traMADol hydrochloride 50 mg oral tablet (3 sources) Opioid Agonist Start: 07-18-2024 End: 07-30-2024 take 1 tablet by mouth every six hours for pain traMADol (Ultram) 50 MG tablet Indications: Cervical radiculopathy , Restless leg syndrome Take 1 tablet (50 mg) by mouth every 6 (six) hours if needed for severe pain for up to 10 days 20 tablet 07/18/2024 07/30/2024 Active triamcinolone acetonide 5 mg/ml topical cream (20 sources) Corticosteroid triamcinolone (ARISTOCORT) 0.5 % cream triamcinolone acetonide 0.5 % topical cream 0 Active 24 hr venlafaxine 75 mg extended release oral capsule (10 sources) Serotonin and Norepinephrine Reuptake Inhibitor Start: 04-04-2024 take 1 capsule by mouth once daily venlafaxine XR (Effexor XR) 75 MG 24 hr capsule Indications: Mild major depression, single episode (HCC) (CMS/HCC) TAKE 1 CAPSULE BY MOUTH DAILY * DO NOT CRUSH OR CHEW * 30 capsule 04/04/2024 Active Start: 10-31-2023 take 1 capsule by mo uth once daily venlafaxine XR (Effexor XR) 75 MG 24 hr capsule Indications: Mild major depression, single episode (HCC) (CMS/HCC) Take 1 capsule (75 mg) by mouth Daily Do not crush or chew. 30 capsule 5 10/31/2023 Active Completed/Discontinued Medications Medication Drug Class(es) Dates Sig (Normalized) Sig (Original) acetaminophen 325 mg oral tablet (1 source) Start: 04-20-2022 End: 04-20-2022 acetaminophen (TYLENOL) tablet 650 mg acetaminophen 325 mg / butalbital 50 mg / caffeine 40 mg oral tablet (1 source) Barbiturate, Central Nervous System Stimulant, Methylxanthine Start: 09-10-2022 End: 09-10-2022 butalbital-acetami nophen-caffeine (FIORICET, ESGIC) per tablet 1 tablet Start: 09-10-2022 End: 09-10-2022 esixrbbocu-cdsprnsloingz-les feine (FIORICET, ESGIC) per tablet 1 tablet Barium Sulfate (VOLUMEN/NEULUMEX) 0.1 % 900 mL (1 source) Start: 04-11-2022 End: 04-11-2022 Barium Sulfate (VOLUMEN/NEULUMEX) 0.1 % 900 mL diphenhydrAMINE hydrochloride 25 mg oral capsule (1 source) Histamine-1 Receptor Antagonist Start: 09-10-2022 End: 09-10-2022 diphenhydrAMINE (BENADRYL) capsule 25 mg gadoterate Meglumine (DOTAREM) 5 MMOL/10ML injection 3-60 mL (1 source) Start: 04-11-2022 End: 04-11-2022 gadoterate Meglumine (DOTAREM) 5 MMOL/10ML injection 3-60 mL hydrOXYzine hydrochloride 25 mg oral tablet (1 source) Antihistamine Start: 09-22-2022 End: 09-22-2022 hydrOXYzine HCl (ATARAX) tablet 25 mg iopamidol (ISOVUE-370) 76 % injection 75 mL (1 source) Start: 09-22-2022 End: 09-22-2022 iopamidol (ISOVUE-370) 76 % injection 75 mL pregabalin 100 mg oral capsule (4 sources) Start: 11-29-2021 End: 04-17-2022 take 1 capsule by mouth twice daily pregabalin 100 MG capsule Take 100 mg by mouth 2 times daily. 0 11/29/2021 04/17/2022 Discontinued 10 ml sodium chloride 9 mg/ml injection (1 source) Start: 04-11-2022 End: 04-11-2022 sodium chloride (PF) 0.9 % injection 1-250 mL Problems Active Problems Problem Classification Problem Date Documented Da te Episodic/Chronic Anxiety disorders (10 sources) Generalized anxiety disorder; Translations: [Generalized anxiety disorder] Onset: 4 09-04-2023 Chronic Cardiac dysrhythmias (4 sources) Cardiac arrhythmia; Translations: [Cardiac arrhythmia, unspecified] Onset: 2 04-17-2022 Chronic Digestive congenital anomalies (1 source) Other specified congenital malformations of intestine; Translations: [OTHER SPECIFIED CONGENITAL MALFORMATIONS OF INTESTINE] Onset: 8 Chronic Disorders of teeth and jaw (1 source) Other specified disorders of teeth and supporting structures; Translations: [Other specified disorders of teeth and supporting structures] Onset: 4 Episodic Epilepsy; convulsions (8 sources) Epilepsy, unspecified, not intractable, without status epilepticus; Translations: [Seizure disorder] Onset: 7 05-14-2024 Chronic Esophageal disorders (11 sources) Gastroesophageal reflux disease without esophagitis; Translations: [Gastro-esophageal reflux disease without esophagitis] Onset: 4 Chronic Fracture of upper limb (5 sources) Closed fracture of left elbow; Translations: [Unspecified fracture of lower end of left humerus, initial encounter for closed fracture] Onset: 4 07-21-2023 Episodic Gastritis and duodenitis (10 sources) Chronic superficial gastritis; Translations: [Chronic superficial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 wrist, and 2 views of the right forearm. COMPARISON: None FINDINGS: No displaced fracture or dislocation. Joint spaces are preserved. No aggressive osseous lesions or bony demineralization. Normal soft tissues. IMPRESSION: No fracture or osseous malalignment. Interpreted by: Dustin Thomas DO Signed by: Dustin Thomas DO 12/27/22 Final result Normal [facility] Radiology Study observation (narrative) [facility] XR RADIUS ULNA RIGHT (2 VIEW S)on 12-27-2022 XR RADIUS ULNA RIGHT (2 VIEWS) EXAM: XR HAND RIGHT (MIN 3 VIEWS), XR RADIUS ULNA RIGHT (2 VIEWS), XR WRIST RIGHT (MIN 3 VIEWS) REASON FOR EXAM: Reason for exam:->pain TECHNIQUE: 3 views of the right hand, 3 views of the right wrist, and 2 views of the right forearm. COMPARISON: None FINDINGS: No displaced fracture or dislocation. Joint spaces are preserved. No aggressive osseous lesions or bony demineralization. Normal soft tissues. IMPRESSION: No fracture or osseous malalignment. Interpreted by: Dustin Thomas DO Signed by: Dustin Thomas DO 12/27/22 Final result [facility] Radiology Study observation (narrative) [facility] XR WRIST RIGHT (MIN 3 VIEWS) on 12-27-2022 XR WRIST RIGHT (MIN 3 VIEWS) EXAM: XR HAND RIGHT (MIN 3 VIEWS), XR RADIUS ULNA RIGHT (2 VIEWS), XR WRIST RIGHT (MIN 3 VIEWS) REASON FOR EXAM: Reason for exam:->pain TECHNIQUE: 3 views of the right hand, 3 views of the right wrist, and 2 views of the right forearm. COMPARISON: None FINDINGS: No displaced fracture or dislocation. Joint spaces are preserved. No aggressive osseous lesions or bony demineralization. Normal soft tissues. IMPRESSION: No fracture or osseous malalignment. Interpreted by: Dustin Thomas DO Signed by: Dustin Thomas DO 12/27/22 Final result Normal [facility] Radiology Study observation (narrative) [facility] CT ABDOMEN PELVIS W IV CONTR Agnela 09-23-2022 CT ABDOMEN PELVIS W IV CONTRAST EXAMINATION: CT OF THE ABDOMEN AND PELVIS WITH CONTRAST 09/22/2022 9:37 pm TECHNIQUE: CT of the abdomen and pelvis was performed with the administration of intravenous contrast. Multiplanar reformatted images are provided for review. Automated exposure control, iterative reconstruction, and/or weight based adjustment of the mA/kV was utilized to reduce the radiation dose to as low as reasonably achievable. COMPARISON: None. HISTORY: ORDERING SYSTEM PROVIDED HISTORY: abd pain with history of colitis TECHNOLOGIST PROVIDED HISTORY: abd pain with history of colitis Decision Support Exception - unselect if not a suspected or confirmed emergency medical condition->Emergency Medical Condition (MA) FINDINGS: LOWER CHEST: Visualized portion of the lower chest demonstrates no acute abnormality. Small axial hiatal hernia KIDNEYS AND URINARY TRACT: 3 mm nonobstructing stone of superior pole of left kidney. . There is no evidence for hydronephrosis. The ureters are of normal course and caliber. ORGANS: Status post cholecystectomy. Multiple hypodense liver lesions are too small to characterize, likely representing simple cysts.. Visualized portions of the liver, spleen, pancreas, and adrenal glands demonstrate no acute abnormality. GI/BOWEL: No bowel obstruction. No evidence of acute appendicitis. Mild wall thickening Of ascending colon likely suggestive of colitis PELVIS: The bladder and pelvic organs are unremarkable. PERITONEUM/RETROPERI TONEUM: No free air or free fluid is noted. No pathologically enlarged lymphadenopathy. The vasculature do not demonstrate acute abnormality. BONES/SOFT TISSUES: The osseous structures demonstrate no acute abnormality. IMPRESSION: Appendix is normal. No obstructive uropathy. Status post cholecystectomy. Small axial hiatal hernia. Mild wall thickening of the ascending colon can be suggestive of colitis. 3 mm nonobstructing stone of superior pole of left kidney. Interpreted by: Chad Cai MD Signed by: Chad Cai MD 09/22/22 Final result Normal [facility] 09-22-2022 Anion gap [Moles/Vol] 10 mmol/L 9 - 17 mmol/L [facility] Calcium [Mass/Vol] 8.9 mg/dL 8.6 - 10. 4 mg/dL [facility] Chloride [Moles/Vol] 101 mmol/L 98 - 10 7 mmol/L [facility] CO2 [Moles/Vol] 26 mmol/L 20 - 31 mmol/L [facility] Creatinine [Mass/Vol] 0.87 mg/dL 0.50 - 0.90 mg/dL [facility] GFR/1.73 sq M.predicted MDRD (S/P/Bld) [Vol rate/Area] - PINF [facility] Comment on above: These results are not intended for use in patients <18 years of age. eGFR results are calculated without a race factor using the 2020 CKD-EPI equation. Careful clinical correlation is recommended, particularly when comparing to results calculated using previous equations. The CKD-EPI equation is less accurate in patients with extremes of muscle mass, extra-renal metabolism of creatine, excessive creatine ingestion, or following therapy that affects renal tubular secretion. Glucose [Mass/Vol] 92 mg/dL 70 - 99 mg/dL [facility] Potassium [Moles/Vol] 3.9 mmol/L 3.7 - 5.3 mmol/L [facility] Sodium [Moles/Vol] 137 mmol/L 135 - 144 mmol/L [facility] Urea nitrogen [Mass/Vol] 11 mg/dL 6 - 20 mg/dL [facility] Urea nitrogen/Creatinine (Bld) [Mass ratio] 13 - [facility] Basic Metabolic Profon 09-22 Anion gap [Moles/Vol] 10 mmol/L Normal 03-25 [facility] Comment on above: Performed By: #### C DP, HCG, BMP, LIP, LIVP, MG #### [facility] [address] [place] [address] Registered Pharmacist: Emily Uribe MD BUN/CRE Ratio 13 Normal 03-28 [facility] Comment on above: Performed By: #### C DP, HCG, BMP, LIP, LIVP, MG #### [facility] [address] [place] [address] Registered Pharmacist: Emily Uribe MD Calcium [Mass/Vol] 8.9 mg/dL Normal 8.6-10.4 [facility] Comment on above: Performed By: #### C DP, HCG, BMP, LIP, LIVP, MG #### [facility] [address] [place] [address] Registered Pharmacist: Emily Uribe MD Chloride [Moles/Vol] 101 mmol/L Normal 98-107 [facility] Comment on above: Performed By: #### C DP, HCG, BMP, LIP, LIVP, MG #### [facility] [address] [place] [address] Registered Pharmacist: Emily Uribe MD CO2 [Moles/Vol] 26 mmol/L Normal 20-31 [facility] Comment on above: Performed By: #### C DP, HCG, BMP, LIP, LIVP, MG #### [facility] [address] [place] [address] Registered Pharmacist: Emily Uribe MD Creatinine [Mass/Vol] 0.87 mg/dL Normal 0.50-0.90 [facility] Comment on above: Performed By: #### C DP, HCG, BMP, LIP, LIVP, MG #### [facility] [address] [place] [address] Registered Pharmacist: Emily Uribe MD GFR/1.73 sq M.predicted among non-blacks MDRD (S/P/Bld) [Vol rate/Area] mL/min/{1.73_m2} Normal >60 [facility] Comment on above: Result Comment: These results are not intended for use in patients <18 years of age. eGFR results are calculated without a race factor using the 2020 CKD-EPI equation. Careful clinical correlation is recommended, particularly when comparing to results calculated using previous equations. The CKD-EPI equation is less accurate in patients with extremes of muscle mass, extra-renal metabolism of creatine, excessive creatine ingestion, or following therapy that affects renal tubular secretion. Performed By: #### C DP, HCG, BMP, LIP, LIVP, MG #### [facility] [address] [place] [address] Registered Pharmacist: Emily Uribe MD Glucose [Mass/Vol] 92 mg/dL Normal 70-99 [facility] Comment on above: Performed By: #### C DP, HCG, BMP, LIP, LIVP, MG #### [facility] [address] [place] [address] Registered Pharmacist: Emily Uribe MD Potassium [Moles/Vol] 3.9 mmol/L Normal 3.7-5.3 [facility] Comment on above: Performed By: #### C DP, HCG, BMP, LIP, LIVP, MG #### [facility] [address] [place] [address] Registered Pharmacist: Emily Uribe MD Sodium [Moles/Vol] 137 mmol/L Normal 135-144 [facility] Comment on above: Performed By: #### C DP, HCG, BMP, LIP, LIVP, MG #### [facility] [address] [place] [address] Registered Pharmacist: Emily Uribe MD Urea nitrogen [Mass/Vol] 11 mg/dL Normal 6-20 [facility] Comment on above: Performed By: #### C DP, HCG, BMP, LIP, LIVP, MG #### [facility] [address] [place] [address] Registered Pharmacist: Emily Uribe MD CBC with Auto Differentialon 09-22-2022 Absolute Eos # 0.22 [facility] Absolute Immature Granulocyte [facility] Absolute Lymph # 2.32 [facility] Absolute Kimble # 0.52 [facility] Basophils (Bld) [#/Vol] 0.04 10*3/uL [facility] Basophils/100 WBC (Bld) 1 % 0 - 2 % [facility] Eosinophils/100 WBC (Bld) 4 % 1 - 4 % [facility] Hematocrit (Bld) [Volume fraction] 39.8 % 36.3 - 47.1 % [facility] Hemoglobin (Bld) [Mass/Vol] 13.8 g/dL 11.9 - 15.1 g/dL [facility] Immature granulocytes/100 WBC (Bld) 0 % 0 [facility] Interpretation and review of laboratory results Abnormal [facility] Lymphocytes/100 WBC (Bld) 38 % 24 - 43 % [facility] MCH (RBC) [Entitic mass] 32.2 pg 25.2 - 33.5 pg [facility] MCHC (RBC) [Mass/Vol] 34.7 g/dL 28.4 - 34.8 g/dL [facility] MCV (RBC) [Entitic vol] 93.0 fL 82.6 - 102.9 fL [facility] Monocytes/100 WBC (Bld) 8 % 3 - 12 % [facility] NRBC Automated 0.0 0.0 per 100 WBC [facility] Platelet distribution width (Bld) [Ratio] 11.5 % Low 11.8 - 14.4 % [facility] Platelet mean volume (Bld) [Entitic vol] 11.0 fL 8.1 - 13.5 fL [facility] Platelets (Bld) [#/Vol] 149 10*3/uL [facility] RBC (Bld) [#/Vol] 4.28 10*6/uL 3.95 - 5.1 1 m/uL [facility] Segmented neutrophils/100 WBC (Bld) 49 % 36 - 65 % [facility] Segs Absolute 3.07 [facility] WBC (Bld) [#/Vol] 6.2 10*3/uL [facility] CBC with Diffon 09-22-2022 Abs. Basophil 0.04 k/uL Normal 0.00-0.20 [facility] Comment on above: Performed By: #### C DP, HCG, BMP, LIP, LIVP, MG #### [facility] [address] [place] [address] Registered Pharmacist: Emily Uribe MD Abs.Imm.Granulocyte <0.03 Normal 0.00-0.30 [facility] Comment on above: Performed By: #### C DP, HCG, BMP, LIP, LIVP, MG #### [facility] [address] [place] [address] Dr. [place], [place] [address] Registered Pharmacist: Emily Uribe MD Abs.Neutrophil (Seg) 3.07 k/uL Normal 1.50-8.10 [facility] Comment on above: Performed By: #### C DP, HCG, BMP, LIP, LIVP, MG #### [address] [place], [place] [address] Registered Pharmacist: Emily Uribe MD Basophils/100 WBC (Bld) 1 % Normal 0-2 [facility] Comment on above: Performed By: #### C DP, HCG, BMP, LIP, LIVP, MG #### [address] [place], [facility] Registered Pharmacist: Emliy Uribe MD Eosinophils (Bld) [#/Vol] 0.22 10*3/uL Normal 0.00-0.44 [facility] Comment on above: Performed By: #### C DP, HCG, BMP, LIP, LIVP, MG #### [address] [place], [facility] Registered Pharmacist: Emily Uribe MD Eosinophils/100 WBC (Bld) 4 % Normal 1-4 [facility] Comment on above: Performed By: #### C DP, HCG, BMP, LIP, LIVP, MG #### [address] [place], [facility] Registered Pharmacist: Emily Uribe MD Erythrocyte distribution width (RBC) [Ratio] 11.5 % Low 11.8-14.4 [facility] Comment on above: Performed By: #### C DP, HCG, BMP, LIP, LIVP, MG #### [address] [place], [facility] Registered Pharmacist: Emily Uribe MD Hematocrit (Bld) [Volume fraction] 39.8 % Normal 36.3-47.1 [facility] Comment on above: Performed By: #### C DP, HCG, BMP, LIP, LIVP, MG #### [facility] [address] [place] [address] Registered Pharmacist: Emily Uribe MD Hemoglobin (Bld) [Mass/Vol] 13.8 g/dL Normal 11.9-15.1 [facility] Comment on above: Performed By: #### C DP, HCG, BMP, LIP, LIVP, MG #### [facility] [address] [place] [address] Registered Pharmacist: Emily Uribe MD Immature granulocytes/100 WBC (Bld) 0 % Normal 0 [facility] Comment on above: Performed By: #### C DP, HCG, BMP, LIP, LIVP, MG #### [address] [place], [place] [address] Registered Pharmacist: Emily Uribe MD Lymphocytes (Bld) [#/Vol] 2.32 10*3/uL Normal 1.10-3.70 [facility] Comment on above: Performed By: #### C DP, HCG, BMP, LIP, LIVP, MG #### [address] [place], [place] [address] Registered Pharmacist: Emily Uribe MD Lymphocytes/100 WBC (Bld) 38 % Normal 24-43 [facility] Comment on above: Performed By: #### C DP, HCG, BMP, LIP, LIVP, MG #### [facility] [address] [place], [place] [address] Registered Pharmacist: Emily Uribe MD MCH (RBC) [Entitic mass] 32.2 pg Normal 25.2-33.5 [facility] Comment on above: Performed By: #### C DP, HCG, BMP, LIP, LIVP, MG #### [facility] [address] [place], [facility] Registered Pharmacist: Emily Uribe MD MCHC (RBC) [Mass/Vol] 34.7 g/dL Normal 28.4-34.8 [facility] Comment on above: Performed By: #### C DP, HCG, BMP, LIP, LIVP, MG #### [facility] [address] [place], [facility] Registered Pharmacist: Emily Uribe MD MCV (RBC) [Entitic vol] 93.0 fL Normal 82.6-102.9 [facility] Comment on above: Performed By: #### C DP, HCG, BMP, LIP, LIVP, MG #### [address] [place], [facility] Registered Pharmacist: Emily Uribe MD Monocytes (Bld) [#/Vol] 0.52 10*3/uL Normal 0.10-1.20 [facility] Comment on above: Performed By: #### C DP, HCG, BMP, LIP, LIVP, MG #### [address] [place], [facility] Registered Pharmacist: Emily Uribe MD Monocytes/100 WBC (Bld) 8 % Normal 3-12 [facility] Comment on above: Performed By: #### C DP, HCG, BMP, LIP, LIVP, MG #### [address] [place], [place] [address] Registered Pharmacist: Emily Uribe MD Neutrophil (Seg) 49 % Normal 36-65 [facility] Comment on above: Performed By: #### C DP, HCG, BMP, LIP, LIVP, MG #### [facility] [address] [place], [facility]83 Registered Pharmacist: Emily Uribe MD NRBC Automated 0.0 per 100 WBC Normal 0.0 [facility] Comment on above: Performed By: #### C DP, HCG, BMP, LIP, LIVP, MG #### [facility] [address] [place], [place] [id number] Registered Pharmacist: Emily Uribe MD Platelet mean volume (Bld) [Entitic vol] 11.0 fL Normal 8.1-13.5 [facility] Comment on above: Performed By: #### C DP, HCG, BMP, LIP, LIVP, MG #### [facility] [address] [place] [address] Dr[address] [place], [facility]83 Registered Pharmacist: Emily Uribe MD Platelets (Bld) [#/Vol] 149 10*3/uL Normal 138-453 [facility] Comment on above: Performed By: #### C DP, HCG, BMP, LIP, LIVP, MG #### [address] [place] [address] Registered Pharmacist: Emily Uribe MD RBC (Bld) [#/Vol] 4.28 10*6/uL Normal 3.95-5.11 [facility] Comment on above: Performed By: #### C DP, HCG, BMP, LIP, LIVP, MG #### [address] [place], [facility]83 Registered Pharmacist: Emily Uribe MD WBC (Bld) [#/Vol] 6.2 10*3/uL Normal 3.5-11.3 [facility] Comment on above: Performed By: #### C DP, HCG, BMP, LIP, LIVP, MG #### [address] [place], [place] [id number] Registered Pharmacist: Emily Uribe MD CT ABDOMEN PELVIS W IV CONTR AST Additional Contrast? Noneon 09-22-2022 Appendix is normal. No obstructive uropathy. Status post cholecystectomy. Small axial hiatal hernia. Mild wall thickening of the ascending colon can be suggestive of colitis. 3 mm nonobstructing stone of superior pole of left kidney. [facility] RIS CONSOLIDATED EXAMINATION: CT OF THE ABDOMEN AND PELVIS WITH CONTRAST 09/22/2022 9:37 pm TECHNIQUE: CT of the abdomen and pelvis was performed with the administration of intravenous contrast. Multiplanar reformatted images are provided for review. Automated exposure control, iterative reconstruction, and/or weight based adjustment of the mA/kV was utilized to reduce the radiation dose to as low as reasonably achievable. COMPARISON: None. HISTORY: ORDERING SYSTEM PROVIDED HISTORY: abd pain with history of colitis TECHNOLOGIST PROVIDED HISTORY: abd pain with history of colitis Decision Support Exception - unselect if not a suspected or confirmed emergency medical condition->Emergency Medical Condition (MA) FINDINGS: LOWER CHEST: Visualized portion of the lower chest demonstrates no acute abnormality. Small axial hiatal hernia KIDNEYS AND URINARY TRACT: 3 mm nonobstructing stone of superior pole of left kidney. . There is no evidence for hydronephrosis. The ureters are of normal course and caliber. ORGANS: Status post cholecystectomy. Multiple hypodense liver lesions are too small to characterize, likely representing simple cysts.. Visualized portions of the liver, spleen, pancreas, and adrenal glands demonstrate no acute abnormality. GI/BOWEL: No bowel obstruction. No evidence of acute appendicitis. Mild wall thickening Of ascending colon likely suggestive of colitis PELVIS: The bladder and pelvic organs are unremarkable. PERITONEUM/RETROPERI TONEUM: No free air or free fluid is noted. No pathologically enlarged lymphadenopathy. The vasculature do not demonstrate acute abnormality. BONES/SOFT TISSUES: The osseous structures demonstrate no acute abnormality. [facility] Chad Lima MD - 09/22/2022 EXAMINATION: CT OF THE ABDOMEN AND PELVIS WITH CONTRAST 09/22/2022 9:37 pm TECHNIQUE: CT of the abdomen and pelvis was performed with the administration of intravenous contrast. Multiplanar reformatted images are provided for review. Automated exposure control, iterative reconstruction, and/or weight based adjustment of the mA/kV was utilized to reduce the radiation dose to as low as reasonably achievable. COMPARISON: None. HISTORY: ORDERING SYSTEM PROVIDED HISTORY: abd pain with history of colitis TECHNOLOGIST PROVIDED HISTORY: abd pain with history of colitis Decision Support Exception - unselect if not a suspected or confirmed emergency medical condition->Emergency Medical Condition (MA) FINDINGS: LOWER CHEST: Visualized portion of the lower chest demonstrates no acute abnormality. Small axial hiatal hernia KIDNEYS AND URINARY TRACT: 3 mm nonobstructing stone of superior pole of left kidney. . There is no evidence for hydronephrosis. The ureters are of normal course and caliber. ORGANS: Status post cholecystectomy. Multiple hypodense liver lesions are too small to characterize, likely representing simple cysts.. Visualized portions of the liver, spleen, pancreas, and adrenal glands demonstrate no acute abnormality. GI/BOWEL: No bowel obstruction. No evidence of acute appendicitis. Mild wall thickening Of ascending colon likely suggestive of colitis PELVIS: The bladder and pelvic organs are unremarkable. PERITONEUM/RETROPERI TONEUM: No free air or free fluid is noted. No pathologically enlarged lymphadenopathy. The vasculature do not demonstrate acute abnormality. BONES/SOFT TISSUES: The osseous structures demonstrate no acute abnormality. IMPRESSION: Appendix is normal. No obstructive uropathy. Status post cholecystectomy. Small axial hiatal hernia. Mild wall thickening of the ascending colon can be suggestive of colitis. 3 mm nonobstructing stone of superior pole of left kidney. [employer] Phone: Radiology Study observation (narrative) [employer] Phone: CT ABDOMEN PELVIS W IV CONTR AST Additional Contrast? NoneOrdered By: Chad Cai on 09-22-2022 [employer] Phone: HCG Qualitative, Serumon hCG Qual Negative NEGATIVE [employer] [facility] Comment on above: Specimens with hCG l evels near the threshold of the test (25 mIU/mL) may give a negative or indeterminate result. In such cases, another test should be performed with a new specimen in 48-72 hours. If early is suspected clinically in this setting, correlation with quantitative serum b-hCG level is suggested. [employer] has confirmed the use of plasma for this test. This has not been cleared or approved by the U.S. Food and Drug Administration. The FDA has determined that such clearance is not necessary. [facility] HCG Screen, Bloodon 09-23-19 23 HCG Screen, Blood Negative Normal NEG [facility] Comment on above: Result Comment: Spec imens with hCG levels near the threshold of the test (25 mIU/mL) may give a negative or indeterminate result. In such cases, another test should be performed with a new specimen in 48-72 hours. If early is suspected clinically in this setting, correlation with quantitative serum b-hCG level is suggested. [facility] has confirmed the use of plasma for this test. This has not been cleared or approved by the U.S. Food and Drug Administration. The FDA has determined that such clearance is not necessary. Performed By: #### C DP, HCG, BMP, LIP, LIVP, MG #### [facility] [address] [place] [address] Registered Pharmacist: Emily Uribe MD Hepatic Function Panelon Albumin [Mass/Vol] 3.9 g/dL 3.5 - 5.2 g/dL [facility] Albumin/Globulin [Mass ratio] 1.8 {ratio} 1.0 - 2.5 [facility] ALP [Catalytic activity/Vol] 86 U/L 35 - 104 U/L [facility] ALT [Catalytic activity/Vol] 11 U/L 5 - 33 U/L [facility] AST [Catalytic activity/Vol] 16 U/L NINF - 32 U/L [facility] Bilirubin [Mass/Vol] 0.2 mg/dL Low 0.3 - 1 .2 mg/dL [facility] Bilirubin.direct [Mass/Vol] mg/dL NINF - 0.3 mg/dL [facility] Bilirubin.indirect [Mass/Vol] Can not be calculated 0.0 - 1.0 mg/dL [facility] Protein [Mass/Vol] 6.1 g/dL Low 6.4 - 8.3 g/dL [facility] Lactic Acidon 09-22-2022 Lactate [Moles/Vol] 0.5 mmol/L Normal 0.5-2.2 [facility] Comment on above: Performed By: #### L ACTIC #### [facility] [facility] [address] [place] [address] Registered Pharmacist: Emily Uribe MD Lactate (P jean paul) [Moles/Vol] 0.5 mmol/L 0.5 - 2.2 mmol/L [facility] Lipaseon 09-22-2022 Lipase [Catalytic activity/Vol] 106 U/L High 13-60 [facility] Comment on above: Performed By: #### C DP, HCG, BMP, LIP, LIVP, MG #### [facility] [address] [place] [address] Registered Pharmacist: Emily Uribe MD Lipase [Catalytic activity/Vol] 106 U/L High 13 - 60 U/L [facility] Liver Profileon 09-22-2022 Albumin [Mass/Vol] 3.9 g/dL Normal 3.5-5.2 [facility] Comment on above: Performed By: #### C DP, HCG, BMP, LIP, LIVP, MG #### [facility] [address] [place] [address] Registered Pharmacist: Emily Uribe MD Albumin/Glob Ratio 1.8 Normal 1.0-2.5 [facility] Comment on above: Performed By: #### C DP, HCG, BMP, LIP, LIVP, MG #### [facility] [address] [place], [place] [id number] Registered Pharmacist: Emily Uribe MD Alkaline Phos 86 U/L Normal 35-104 [facility] Comment on above: Performed By: #### C DP, HCG, BMP, LIP, LIVP, MG #### [facility] [address] [place], [place] [id number] Registered Pharmacist: Emily Uribe MD ALT [Catalytic activity/Vol] 11 U/L Normal 5-33 [facility] Comment on above: Performed By: #### C DP, HCG, BMP, LIP, LIVP, MG #### [facility] [address] [place] [address] Registered Pharmacist: Emily Uribe MD AST [Catalytic activity/Vol] 16 U/L Normal <32 [facility] Comment on above: Performed By: #### C DP, HCG, BMP, LIP, LIVP, MG #### [facility] [address] [place], [place] [id number] Registered Pharmacist: Emily Uribe MD Bilirubin [Mass/Vol] 0.2 mg/dL Low 0.3-1.2 [facility] Comment on above: Performed By: #### C DP, HCG, BMP, LIP, LIVP, MG #### [address] [place], [place] [id number] Registered Pharmacist: Emily Uribe MD Bilirubin, Indirect Can not be calculated Normal 0.0-1.0 [facility] Comment on above: Performed By: #### C DP, HCG, BMP, LIP, LIVP, MG #### [address] [place], [place] [id number] Registered Pharmacist: Emily Uribe MD Bilirubin.indirect [Mass/Vol] mg/dL Normal <0.3 [facility] Comment on above: Performed By: #### C DP, HCG, BMP, LIP, LIVP, MG #### [address] [place], [place] [id number] Registered Pharmacist: Emily Uribe MD Protein [Mass/Vol] 6.1 g/dL Low 6.4-8.3 [facility] Comment on above: Performed By: #### C DP, HCG, BMP, LIP, LIVP, MG #### [address] [place], [place] [id number] Registered Pharmacist: Emily Uribe MD Magnesiumon 7 Magnesium [Mass/Vol] 2.0 mg/dL Normal 1.6-2.6 [facility] Comment on above: Performed By: #### C DP, HCG, BMP, LIP, LIVP, MG #### [address] [place], [place] [id number] Registered Pharmacist: Emily Uribe MD Magnesium [Mass/Vol] 2.0 mg/dL 1.6 - 2 .6 mg/dL [facility] No Panel Informationon 09-22 Interpretation and review of laboratory results Abnormal [facility] POCT occult blood stoolOrder ed By: Juhi Chapin on 09-22-2022 Hemoglobin.gastrointes tinal Ql (Stl) ok [facility] Interpretation and review of laboratory results Normal [facility] QC OK? y [facility] CT HEAD WO CONTRASTon 2022 CT HEAD WO CONTRAST EXAMINATION: CT OF THE HEAD WITHOUT CONTRAST 09/10/2022 7:32 pm TECHNIQUE: CT of the head was performed without the administration of intravenous contrast. Automated exposure control, iterative reconstruction, and/or weight based adjustment of the mA/kV was utilized to reduce the radiation dose to as low as reasonably achievable. COMPARISON: None. HISTORY: ORDERING SYSTEM PROVIDED HISTORY: Headache TECHNOLOGIST PROVIDED HISTORY: Headache Decision Support Exception - unselect if not a suspected or confirmed emergency medical condition->Emergency Medical Condition (MA) Is the patient ?->No FINDINGS: BRAIN/VENTRICLES: There is no acute intracranial hemorrhage, mass effect or midline shift. No abnormal extra-axial fluid collection. The patterson-white differentiation is maintained without evidence of an acute infarct. There is no evidence of hydrocephalus. ORBITS: The visualized portion of the orbits demonstrate no acute abnormality. SINUSES: The visualized paranasal sinuses and mastoid air cells demonstrate no acute abnormality. SOFT TISSUES/SKULL: No acute abnormality of the visualized skull or soft tissues. IMPRESSION: No acute intracranial abnormality. Interpreted by: Farshad Foster MD Signed by: Farshad Foster MD 09/10/22 Final result Normal [facility] No acute intracranial abnormality. [facility] CONSOLIDATED EXAMINATION: CT OF THE HEAD WITHOUT CONTRAST 09/10/2022 7:32 pm TECHNIQUE: CT of the head was performed without the administration of intravenous contrast. Automated exposure control, iterative reconstruction, and/or weight based adjustment of the mA/kV was utilized to reduce the radiation dose to as low as reasonably achievable. COMPARISON: None. HISTORY: ORDERING SYSTEM PROVIDED HISTORY: Headache TECHNOLOGIST PROVIDED HISTORY: Headache Decision Support Exception - unselect if not a suspected or confirmed emergency medical condition->Emergency Medical Condition (MA) Is the patient ?->No FINDINGS: BRAIN/VENTRICLES: There is no acute intracranial hemorrhage, mass effect or midline shift. No abnormal extra-axial fluid collection. The patterson-white differentiation is maintained without evidence of an acute infarct. There is no evidence of hydrocephalus. ORBITS: The visualized portion of the orbits demonstrate no acute abnormality. SINUSES: The visualized paranasal sinuses and mastoid air cells demonstrate no acute abnormality. SOFT TISSUES/SKULL: No acute abnormality of the visualized skull or soft tissues. [facility] Farshad Foster MD - 09/10/2022 EXAMINATION: CT OF THE HEAD WITHOUT CONTRAST 09/10/2022 7:32 pm TECHNIQUE: CT of the head was performed without the administration of intravenous contrast. Automated exposure control, iterative reconstruction, and/or weight based adjustment of the mA/kV was utilized to reduce the radiation dose to as low as reasonably achievable. COMPARISON: None. HISTORY: ORDERING SYSTEM PROVIDED HISTORY: Headache TECHNOLOGIST PROVIDED HISTORY: Headache Decision Support Exception - unselect if not a suspected or confirmed emergency medical condition->Emergency Medical Condition (MA) Is the patient ?->No FINDINGS: BRAIN/VENTRICLES: There is no acute intracranial hemorrhage, mass effect or midline shift. No abnormal extra-axial fluid collection. The patterson-white differentiation is maintained without evidence of an acute infarct. There is no evidence of hydrocephalus. ORBITS: The visualized portion of the orbits demonstrate no acute abnormality. SINUSES: The visualized paranasal sinuses and mastoid air cells demonstrate no acute abnormality. SOFT TISSUES/SKULL: No acute abnormality of the visualized skull or soft tissues. IMPRESSION: No acute intracranial abnormality. [employer] Phone: Radiology Study observation (narrative) [employer] Phone: CT HEAD WO CONTRASTOrdered B y: Farshad Foster on 09-10-2022 [employer] Phone: DIAGNOSTIC COLONOSCOPYon [facility] Gastroenterology Patient Name: Fran Hernandez Procedure Date: 05/17/2022 11:38 AM Date of : 1980 Admit Type: Outpatient Age: 41 Room: [place] [address] Gender: Female Note Status: Finalized Attending MD: Tanner Hsu MD, [id number] Procedure: Colonoscopy Indications: Abdominal pain, Chronic diarrhea Providers: Tanner Hsu MD (Doctor), Reg Patiño, RN (Nurse), Kaleb Dubon RN (Nurse), Ryder Hannah, Furniture Finisher Apprentice (Furniture Finisher Apprentice) Referring MD: Tanner Hsu MD (Referring MD) Medicines: Monitored Anesthesia Care Complications: No immediate complications. Procedure: Pre-Anesthesia Assessment: - Prior to the procedure, a History and Physical was performed, and patient medications and allergies were reviewed. The risks and benefits of the procedure and the sedation options and risks were discussed with the patient. All questions were answered and informed consent was obtained. Patient identification and proposed procedure were verified by the physician, the nurse, the job checker and the forestry technician in the procedure room at 11:38 AM. Mental Status Examination: sedated. Airway Examination: normal oropharyngeal airway and neck mobility and Mallampati Class II (the uvula but not tonsillar pillars visualized). Respiratory Examination: clear to auscultation. CV Examination: normal and Abdominal Examination: +BS, soft, non-tender, no masses. Prophylactic Antibiotics: The patient does not require prophylactic antibiotics. Prior Anticoagulants: The patient has taken no anticoagulant or antiplatelet agents. ASA Grade Assessment: II - A patient with mild systemic disease. After reviewing the risks and benefits, the patient was deemed in satisfactory condition to undergo the procedure. The anesthesia plan was to use monitored anesthesia care (MAC). Immediately prior to administration of medications, the patient was re-assessed for adequacy to receive sedatives. The physical status of the patient was re-assessed after the procedure. The Colonoscope was introduced through the anus and advanced to the cecum, identified by appendiceal orifice and ileocecal valve. The colonoscopy was performed without difficulty. The patient tolerated the procedure well. The ileocecal valve, appendiceal orifice, and rectum were photographed. The quality of the bowel preparation was evaluated using the BBPS ([place] Bowel Preparation Scale) with scores of: Right Colon = 2 (minor amount of residual staining, small fragments of stool and/or opaque liquid, but mucosa seen well), Transverse Colon = 2 (minor amount of residual staining, small fragments of stool and/or opaque liquid, but mucosa seen well) and Left Colon = 1 (portion of mucosa seen, but other areas not well seen due to staining, residual stool and/or opaque liquid). The total BBPS score equals 5. The quality of the bowel preparation was fair. Findings: The colon (entire examined portion) was tortuous. Normal mucosa was found in the entire colon. Biopsies were taken with a cold forceps for histology. Verification of patient identification for the specimen was done by the nurse and forestry technician using the patient's name and medical record number. Estimated blood loss was minimal. Impression: - Preparation of the colon was fair. - Tortuous colon. - Normal mucosa in the entire examined colon. Biopsied. The terminal ileum could not be completely intubated due to colon tortuousity, however a small part of the small bowel was seen and (more content not included)... LAB, [facility] DIAGNOSTIC UPPER ENDOSCOPYon 05-17-2022 [facility] Gastroenterology Patient Name: Fran Hernandez Procedure Date: 05/17/2022 11:26 AM Date of : 1980 Admit Type: Outpatient Age: 41 Room: [place] [address] Gender: Female Note Status: Finalized Attending MD: Tanner Hsu MD, [id number] Procedure: Upper GI endoscopy Indications: Abdominal pain, Diarrhea Providers: Tanner Hsu MD (Doctor), Reg Patiño RN (Nurse), Kaleb Dubon RN (Nurse), Ryder Hannah Furniture Finisher Apprentice (Furniture Finisher Apprentice) Referring MD: Tanner Hsu MD (Referring MD) Medicines: Monitored Anesthesia Care Complications: No immediate complications. Procedure: Pre-Anesthesia Assessment: - Prior to the procedure, a History and Physical was performed, and patient medications and allergies were reviewed. The risks and benefits of the procedure and the sedation options and risks were discussed with the patient. All questions were answered and informed consent was obtained. Patient identification and proposed procedure were verified by the physician, the nurse, the job checker and the forestry technician in the procedure room at 11:29 AM. Mental Status Examination: alert and oriented. Airway Examination: normal oropharyngeal airway and neck mobility and Mallampati Class II (the uvula but not tonsillar pillars visualized). Respiratory Examination: clear to auscultation. CV Examination: normal and Abdominal Examination: +BS, soft, non-tender, no masses. Prophylactic Antibiotics: The patient does not require prophylactic antibiotics. Prior Anticoagulants: The patient has taken no anticoagulant or antiplatelet agents. ASA Grade Assessment: II - A patient with mild systemic disease. After reviewing the risks and benefits, the patient was deemed in satisfactory condition to undergo the procedure. The anesthesia plan was to use monitored anesthesia care (MAC). Immediately prior to administration of medications, the patient was re-assessed for adequacy to receive sedatives. The physical status of the patient was re-assessed after the procedure. After obtaining informed consent, the endoscope was passed under direct vision. Throughout the procedure, the patient's blood pressure, pulse, and oxygen saturations were monitored continuously. The Endoscope was introduced through the mouth, and advanced to the second part of duodenum. The upper GI endoscopy was accomplished without difficulty. The patient tolerated the procedure well. Findings: The Z-line was regular and was found 45 cm from the incisors. Diffuse mildly erythematous mucosa without bleeding was found in the stomach. Biopsies were taken with a cold forceps for Helicobacter pylori testing. Verification of patient identification for the specimen was done by the nurse and forestry technician using the patient's name and medical record number. Estimated blood loss was minimal. The examined duodenum was normal. Biopsies were taken with a cold forceps for histology. Verification of patient identification for the specimen was done by the nurse and forestry technician using the patient's name and medical record number. Estimated blood loss was minimal. The cardia and gastric fundus were normal on retroflexion. 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 Impression: - Z-line regular, 45 cm from the incisors. - Erythematous mucosa in the stomach. Biopsied. - Normal examined duodenum. Biopsied. - Ectopic gastric mucosa in the upper third of the esophagus. Recommendation: - Patient has a contact number available for emergencies. The signs and symptoms of potential delayed complications were discussed with the patient. Return to normal activities tomorrow. (more content not included)... LAB, [facility] No Panel Informationon 05-17 Radiology Study observation (narrative) [facility] SURG PATH REQUESTon 05-17-20 Case Report Normal [facility] Comment on above: Result Comment: Surg ical Pathology Report Case: [id number] Authorizing Provider: Tanner Hsu MD Collected: 05/17/2022 11:32 AM Ordering Location: [facility] Received: 05/17/2022 01:17 PM Pathologist: Immanuel Denson MD Specimens: A) - TISSUE, Doudenal bx - r/o Celiac B) - TISSUE, Gastric bx - r/o H.P C) - TISSUE, Random colon bx - r/o microscopic colitis Performed By: #### S URGP #### [facility] (DEFAULT) [address] [place] [address] Clinical History Normal [facility] Comment on above: Result Comment: Medi porfirio History: Colitis. Low blood pressure. Ovarian cancer. IBS (irritable bowel syndrome). UpperEndosc - Z-line regular, 45 cm from the incisors. - Erythematous mucosa in the stomach. Biopsied. - Normal examined duodenum. Biopsied. - Ectopic gastric mucosa in the upper third of the esophagus. Colonoscopy: Normal colon Performed By: #### S URGP #### [facility] (DEFAULT) [address] [place] [address] Gross Description Normal [facility] Comment on above: Result Comment: The specimens are received in three properly labeled containers with the patient's name and accession number. A. The specimen is designated duodenal bx - r/o celiac and consists of a 0.5 x 0.3 x 0.2 cm aggregate of three elizalde-pink soft tissue fragments. TE 1 B. The specimen is designated gastric bx - r/o H.P. and consists of a 0.4 x 0.4 x 0.2 cm aggregate of three elizalde-pink soft tissue fragments. TE 1 C. The specimen is designated random colon bx - r/o microscopic colitis and consists of a 0.4 x 0.4 x 0.2 cm aggregate of three elizalde-pink soft tissue fragments. TE 1 Lab Use Only: JobID [id number] Grosser for this case was: Keila Rodrigues For Immediate Release to [facility]'s [facility] Yes Performed By: #### S URGP #### [facility] (DEFAULT) [address] [place] [address] Microscopic Description A microscopic examination was performed. Normal [facility] Comment on above: Performed By: #### S URGP #### [facility] (DEFAULT) [address] [place] [id number] Pathologic Diagnosis Normal [facility] Comment on above: Result Comment: A. S mall intestine, duodenum, biopsy: Unremarkable small intestinal mucosa No evidence of celiac sprue. B. Stomach, biopsy: Mild chronic inactive gastritis No Helicobacter pylori organisms identified. C. Colon, random, biopsy: Colonic mucosa with reactive epithelial and stromal changes, suggestive of healing erosions. See Note: Note: There is no significant active or chronic inflammation and no granulomas are identified.The features suggest a resolving injury either an infectious process, drug induced injury or ischemic episode. No evidence of dysplasia or malignancy. Performed By: #### S URGP #### [facility] (DEFAULT) [address] [place] [id number] XR KNEE RIGHT (1-2 VIEWS)on 04-20-2022 Moderate knee effusion. Otherwise, unremarkable right knee. No acute fracture or dislocation. [facility] CON[facility] EXAMINATION: TWO XRAY VIEWS OF THE RIGHT KNEE 04/20/2022 2:29 pm COMPARISON: None. HISTORY: ORDERING SYSTEM PROVIDED HISTORY: pain TECHNOLOGIST PROVIDED HISTORY: pain FINDINGS: Frontal and lateral view radiographs of the rightknee were obtained. Bone mineralization is normal. The osseous structures are intact without acute fracture or destructive abnormality. Joint relationships are maintained. No significant degenerative findings. Moderate size knee joint effusion. No appreciable soft tissue abnormality. [facility] Gavino Richard MD - 04/20/2022 EXAMINATION: TWO XRAY VIEWS OF THE RIGHT KNEE 04/20/2022 2:29 pm COMPARISON: None. HISTORY: ORDERING SYSTEM PROVIDED HISTORY: pain TECHNOLOGIST PROVIDED HISTORY: pain FINDINGS: Frontal and lateral view radiographs of the rightknee were obtained. Bone mineralization is normal. The osseous structures are intact without acute fracture or destructive abnormality. Joint relationships are maintained. No significant degenerative findings. Moderate size knee joint effusion. No appreciable soft tissue abnormality. IMPRESSION: Moderate knee effusion. Otherwise, unremarkable right knee. No acute fracture or dislocation. [facility] Phone: Radiology Study observation (narrative) [employer] Phone: XR KNEE RIGHT (1-2 VIEWS)Ord ered By: Gavino Richard on 04-20-2022 [employer] Phone: MRI ENTEROGRAPHYon MRI ENTEROGRAPHY EXAM: MRI ENTEROGRAPHY (MRI ABDOMEN AND PELVIS WITH AND WITHOUT CONTRAST), 04/11/2022 14:39 PM CLINICAL INDICATIONS: abdominal pain and diarrhea; K52.9:Chronic diarrhea R10.9:Abdominal pain, unspecified abdominal location Patient with FH of IBD with significant diarrhea and abdominal pain, please evaluate for Crohn's.; COMPARISON: No prior studies available for comparison. TECHNIQUE: Multiplanar, multisequence MRI scanning was performed of the abdomen and pelvis before and after the administration of intravenous contrast. CONTRAST: Barium Sulfate (VOLUMEN/NEULUMEX) 0.1 % 900 mL; Route of Administration: Oral; Dose: 900 mL. gadoterate Meglumine (DOTAREM) 5 MMOL/10ML injection 3-60 mL; Route of Administration: Intravenous; Dose: 12.8 mL. FINDINGS: Abdomen: Suboptimal exam due to bowel motion as glucagon could not be given due to patient anticholinergic medication. Liver: Dome of the liver is not included on multiple sequences. Visualized liver is normal in signal. Few tiny T2 hyperintense T1 hypointense lesions with enhancement, favoring hemangiomas. No suspicious lesions. Portal vein is patent. Gallbladder and biliary tree: Status post cholecystectomy. The common bile duct and intrahepatic biliary tree are normal in caliber. Spleen: Spleen is normal in size and signal characteristics. No focal lesions. Pancreas: Pancreas is normal in morphology and signal characteristics. No focal lesions or ductal dilatation. Adrenals: Adrenal glands are unremarkable. Kidneys: Kidneys are normal in size and signal. There is no hydronephrosis. Retroperitoneal/Lymp h Nodes/Vasculature: No abdominal/retroperit beach adenopathy is identified. Abdominal aorta and its visualized branches are patent. Mesenteric vasculature is patent. GI Tract: Visualized bowel loops are non obstructed. No abnormal bowel wall thickening, or enhancement. The terminal ileum is unremarkable. No fistula or abscess identified. Pelvis: Bladder: Bladder distends normally. Pelvic Organs: Status post hysterectomy. No adnexal lesions. Metallic susceptibility artifact over the umbilicus. Osseous Structures: Visualized bony structures reveal normal marrow signal. IMPRESSION: No evidence of active inflammatory bowel disease. I personally viewed and interpreted these images and I have reviewed and approved this report. Normal [facility] INSULIN FREE AND TOTALon Free Insulin 2.7 uU/mL Normal [facility] Comment on above: Result Comment: Refe rence Range: Pubertal Children and Adults (fasting): 0 - 17 Performed By: #### I NSULT #### [facility] [address] [place] [address] Dr. Jan Hood Total Insulin 2.7 uU/mL Normal [facility] Comment on above: Result Comment: Non- Diabetic: In the absence of insulin- binding antibodies, the free and total insulin assays are equivalent. However, this assay is intended for use in diabetics with insulin autoantibody present. Measurement is performed on acid-treated samples and, therefore, the sensitivity and absolute values by this method may differ from our direct insulin ICMA. Insulin Dependent Diabetic Patients: Free Insulin levels vary depending on the capacity and affinity of circulating insulin-binding antibodies and the dose of insulin given to the patient. Total insulin levels represent free insulin and antibody bound insulin fractions. This test was developed and its performance characteristics determined by [employer]. It has not been cleared or approved by the Food and Drug Administration. Performed By: #### I NSULT #### [facility] [address] [place] [address] Dr. Jan Hood PROF CHEM 8 (BAS METB)on Anion gap [Moles/Vol] 9.5 mmol/L Normal [facility] Comment on above: Performed By: #### B MP #### [facility] [address] [place] [address] Dr. Jan Hood Calcium [Mass/Vol] 8.9 mg/dL Normal 8.5-10.1 [facility] Comment on above: Performed By: #### B MP #### [facility] [address] [place] [address] [address] Jan Hood Chloride [Moles/Vol] 104 mmol/L Normal 98-107 [facility] Comment on above: Performed By: #### B MP #### [facility] [address] [address] [address] Jan Hood CO2 [Moles/Vol] 30.7 mmol/L Normal 21.0-32.0 [facility] Comment on above: Performed By: #### B MP #### [facility] [address] [address] [address] Jan Hood Creatinine [Mass/Vol] 0.86 mg/dL Normal 0.55-1.02 [facility] Comment on above: Performed By: #### B MP #### [facility] [address] [place] [address] Dr. Jan Hood EGFR-AF NAMIBIAN >60 Normal >=60 [facility] Comment on above: Performed By: #### B MP #### [facility] [address] [place] [address] Dr. Jan Hood EGFR-NON AF NAMIBIAN >60 Normal >=60 [facility] Comment on above: Performed By: #### B MP #### [facility] [address] [place] [address] Dr. Jan Hood Glucose [Mass/Vol] 79 mg/dL Normal 74-106 [facility] Comment on above: Performed By: #### B MP #### [facility] [address] [address] [address] Jan Hood Potassium [Moles/Vol] 4.2 mmol/L Normal 3.5-5.1 [facility] Comment on above: Performed By: #### B MP #### [facility] [address] [place] [address] Dr. Jan Hood Sodium [Moles/Vol] 140 mmol/L Normal 136-145 [facility] Comment on above: Performed By: #### B MP #### [facility] [address] [place] [address] Dr. Jan Hood Urea nitrogen [Mass/Vol] 13.0 mg/dL Normal 7.0-18.0 [facility] Comment on above: Performed By: #### B MP #### [facility] [address] [place], [place] [id number] Dr. Jan Hood Urea nitrogen/Creatinine [Mass ratio] 15.1 mg/mg Normal [facility] Comment on above: Performed By: #### B MP #### [facility] [address] [address] [address] Jan Hood C REACTIVE PROTEINon 022 CRP [Mass/Vol] 0.37 mg/L Normal <10.00 [facility] Comment on above: Performed By: #### C HM6, CRP, HFP #### [facility] (DEFAULT) [address] [place] [address] CBC AND ELECTRONIC DIFFon Basophils (Bld) [#/Vol] 0.05 10*3/uL Normal 0.00-0.15 [facility] Comment on above: Performed By: #### L [id number] #### [facility] (DEFAULT) [address] [place] [address] Basophils/100 WBC (Bld) 0.7 % Normal [facility] Comment on above: Performed By: #### L [id number] #### [facility] (DEFAULT) [address] [place] [address] DIFF STATUS Electronic Differential Normal [facility] Comment on above: Performed By: #### L [id number] #### [facility] (DEFAULT) [address] [place] [address]608 Eosinophils (Bld) [#/Vol] 0.22 10*3/uL Normal 0.00-0.42 [facility] Comment on above: Performed By: #### L [id number] #### [facility] (DEFAULT) [address] [place] [address] Eosinophils/100 WBC (Bld) 2.9 % Normal [facility] Comment on above: Performed By: #### L [id number] #### [facility] (DEFAULT) [address] [place] [address]69 Hematocrit (Bld) [Volume fraction] 44.0 % Normal 34.9-44.3 [facility] Comment on above: Performed By: #### L AB980 #### [facility] (DEFAULT) [address] [address] Hemoglobin (Bld) [Mass/Vol] 15.1 g/dL Normal 11.4-15.2 [facility] Comment on above: Performed By: #### L AB980 #### [facility] (DEFAULT) [address] [address] Immature Grans % 0.4 % Normal [facility] Comment on above: Performed By: #### L [id number] #### [facility] (DEFAULT) [address] [address] Immature Grans Absolute <0.04 Normal <=0.08 [facility] Comment on above: Performed By: #### L [id number] #### [facility] (DEFAULT) [address] [address] Lymphocytes (Bld) [#/Vol] 2.19 10*3/uL Normal 1.16-3.51 [facility] Comment on above: Performed By: #### L [id number] #### [facility] (DEFAULT) [address] [address] Lymphocytes/100 WBC (Bld) 28.6 % Normal [facility] Comment on above: Performed By: #### L [id number] #### [facility] (DEFAULT) [address] [address] MCV (RBC) [Entitic vol] 95.0 fL Normal 79.6-97.7 [facility] Comment on above: Performed By: #### L AB980 #### [facility] (DEFAULT) [address] [address] Mean Cell Hgb 32.6 pg Normal 25.9-33.9 [facility] Comment on above: Performed By: #### L AB980 #### [facility] (DEFAULT) [address] [address] Mean Cell Hgb Conc 34.3 g/dL Normal 31.4-35.9 [facility] Comment on above: Performed By: #### L [id number] #### [facility] (DEFAULT) [address] [address] Monocytes (Bld) [#/Vol] 0.54 10*3/uL Normal 0.22-0.87 [facility] Comment on above: Performed By: #### L AB980 #### [facility] (DEFAULT) [address] [address] Monocytes/100 WBC (Bld) 7.0 % Normal [facility] Comment on above: Performed By: #### L AB980 #### [facility] (DEFAULT) [address] [address] Nucleated RBC 0.0 /100 WBC Normal <=0.2 [facility] Comment on above: Performed By: #### L [id number] #### [facility] (DEFAULT) [address] [address] Platelet mean volume (Bld) [Entitic vol] 12.2 fL Normal 8.5-12.2 [facility] Comment on above: Performed By: #### L [id number] #### [facility] (DEFAULT) [address] [address] Platelets (Bld) [#/Vol] 161 10*3/uL Normal 150-393 [facility] Comment on above: Performed By: #### L [id number] #### [facility] (DEFAULT) [address] [address] RBC (Bld) [#/Vol] 4.63 10*6/uL Normal 3.91-5.04 [facility] Comment on above: Performed By: #### L [id number] #### [facility] (DEFAULT) [address] [place] [address]206 RBC Distribution 11.6 % Normal 10.8-14.9 [facility] Comment on above: Performed By: #### L [id number] #### [facility] (DEFAULT) [address] [place] [address]46 Segs + Bands Auto 60.4 % Normal [facility] Comment on above: Performed By: #### L [id number] #### [facility] (DEFAULT) [address] [place] [address] Segs + Bands,Absolute Auto 4.63 K/uL Normal 1.64-7.28 [facility] Comment on above: Performed By: #### L [id number] #### [facility] (DEFAULT) [address] [place] [address]64 WBC (Bld) [#/Vol] 7.66 10*3/uL Normal 3.99-11.19 [facility] Comment on above: Performed By: #### L [id number] #### [facility] (DEFAULT) [address] [place] [address] CHEM 6 (LYTES, BUN CREA)on 0 --2021 Anion gap [Moles/Vol] 13 mmol/L Normal 7-17 [facility] Comment on above: Performed By: #### C HM6, CRP, HFP #### [facility] (DEFAULT) [address] [place] [address] Chloride [Moles/Vol] 103 mmol/L Normal 98-108 [facility] Comment on above: Performed By: #### C HM6, CRP, HFP #### [facility] (DEFAULT) [address] [place] [address]4436 CO2 [Moles/Vol] 28 mmol/L Normal 21-31 [facility] Comment on above: Performed By: #### C HM6, CRP, HFP #### [facility] (DEFAULT) [address] [place] [address]58 Creatinine [Mass/Vol] 0.98 mg/dL Normal 0.50-1.20 [facility] Comment on above: Performed By: #### C HM6, CRP, HFP #### [facility] (DEFAULT) [address] [place] [address] GFR/1.73 sq M.predicted among non-blacks MDRD (S/P/Bld) [Vol rate/Area] 74 mL/min/{1.73_m2} Normal >=60 [facility] Comment on above: Result Comment: Repo rted eGFR is based on the CKD-EPI 2020 equation using creatinine, age, and sex. Performed By: #### C HM6, CRP, HFP #### [facility] (DEFAULT) [address] [place] [address] Potassium [Moles/Vol] 4.1 mmol/L Normal 3.5-5.0 [facility] Comment on above: Performed By: #### C HM6, CRP, HFP #### [facility] (DEFAULT) [address] [place] [address] Sodium [Moles/Vol] 140 mmol/L Normal 135-145 [facility] Comment on above: Performed By: #### C HM6, CRP, HFP #### [facility] (DEFAULT) [address] [place] [address]86 Urea nitrogen [Mass/Vol] 12 mg/dL Normal 7-25 [facility] Comment on above: Performed By: #### C HM6, CRP, HFP #### [facility] (DEFAULT) [address] [place] [address]643 Urea nitrogen/Creatinine [Mass ratio] 12 mg/mg Normal [facility] Comment on above: Performed By: #### C HM6, CRP, HFP #### [facility] (DEFAULT) [address] [place] [address]205 HEPATIC FUNCTION PANELon Albumin [Mass/Vol] 4.1 g/dL Normal 3.5-5.0 [facility] Comment on above: Performed By: #### C HM6, CRP, HFP #### [facility] (DEFAULT) [address] [place] [address] ALP [Catalytic activity/Vol] 81 U/L Normal 32-126 [facility] Comment on above: Performed By: #### C HM6, CRP, HFP #### [facility] (DEFAULT) [address] [place] [address]3232 ALT [Catalytic activity/Vol] 12 U/L Normal 9-48 [facility] Comment on above: Performed By: #### C HM6, CRP, HFP #### [facility] (DEFAULT) [address] [place] [address] 6[address]80 AST [Catalytic activity/Vol] 18 U/L Normal 10-39 [facility] Comment on above: Performed By: #### C HM6, CRP, HFP #### [facility] (DEFAULT) [address] [place] [address]68 Bilirubin [Mass/Vol] 0.4 mg/dL Normal <1.5 [facility] Comment on above: Performed By: #### C HM6, CRP, HFP #### [facility] (DEFAULT) [address] [place] [address] Bilirubin.indirect [Mass/Vol] 0.1 mg/dL Normal <0.3 [facility] Comment on above: Performed By: #### C HM6, CRP, HFP #### [facility] (DEFAULT) [address] [place] [address] Protein [Mass/Vol] 6.2 g/dL Low 6.4-8.3 [facility] Comment on above: Performed By: #### C HM6, CRP, HFP #### [facility] (DEFAULT) [address] [place] [address] T-TRANSGLUTAMINASE IGG/IGA, ABon 01-20-2022 T-TRANSGLUTAMINASE IGA AB <1.2 Normal <4.0 (Negative) [facility] Comment on above: Performed By: #### Y TT #### [facility] (DEFAULT) [address] [address] Tissue Transglutaminase, IgG 1.3 U/mL Normal <6.0 (Negative) [facility] Comment on above: Result Comment: Test Performed by: [facility] [address] [place] [address] Registered Pharmacist: Shane Arshad M.D. Ph.D.; CLIA# [id number] Performed By: #### Y TT #### [facility] (DEFAULT) [address] [address] TSHon 01-20-2022 TSH 1.991 uIU/mL Normal 0.550-4.780 [facility] Comment on above: Performed By: #### T SH #### [facility] (DEFAULT) [address] [address] CBC AUTO DIFFon 10-11-2021 BASO # 0.1 103/ul Normal 0.0-0.1 [facility] Comment on above: Performed By: #### C BC #### [facility] [address] [place] [address] Dr. Jan Hood Basophils/100 WBC (Bld) 0.7 % Normal 0.2-2.0 [facility] Comment on above: Performed By: #### C BC #### [facility] [address] [place] [address] Dr. Jan Hood EO # 0.2 103/ul Normal 0.0-0.7 [facility] Comment on above: Performed By: #### C BC #### [facility] [address] [place] [address] Dr. Jan Hood Eosinophils/100 WBC (Bld) 2.3 % Normal 0.9-7.0 [facility] Comment on above: Performed By: #### C BC #### [facility] [address] [place] [address] Dr. Jan Hood Erythrocyte distribution width (RBC) [Ratio] 11.5 % Normal 11.0-15.0 [facility] Comment on above: Performed By: #### C BC #### [facility] [address] [place] [address] Dr. Jan Hood Hematocrit (Bld) [Volume fraction] 45.1 % Normal 36.0-48.0 [facility] Comment on above: Performed By: #### C BC #### [facility] [address] [place] [address] Dr. Jan Hood Hemoglobin (Bld) [Mass/Vol] 15.1 g/dL Normal 12.0-16.0 [facility] Comment on above: Performed By: #### C BC #### [facility] [address] [place] [address] Dr. Jan Hood IG # 0.03 10e3/ul Normal 0.00-0.03 [facility] Comment on above: Performed By: #### C BC #### [facility] [address] [place] [address] Dr. Jan Hood IG % 0.4 % Normal 0.0-0.5 [facility] Comment on above: Performed By: #### C BC #### [facility] [address] [place] [address] Dr. Jan Hood LYMPH # 2.3 103/ul Normal 1.2-3.8 [facility] Comment on above: Performed By: #### C BC #### [facility] [address] [place] [address] Dr. Jan Hood Lymphocytes/100 WBC (Bld) 31.4 % Normal 20.5-60.0 [facility] Comment on above: Performed By: #### C BC #### [facility] [address] [place] [address] Dr. Jan Hood MANUAL DIFF REQ NO Normal [facility] Comment on above: Performed By: #### C BC #### [facility] [address] [place] [address] Dr. Jan Hood MCH (RBC) [Entitic mass] 32.1 pg Normal 26.7-34.0 [facility] Comment on above: Performed By: #### C BC #### [facility] [address] [address] [address] Jan Hood MCHC (RBC) [Mass/Vol] 33.5 g/dL Normal 29.9-35.2 [facility] Comment on above: Performed By: #### C BC #### [facility] [address] [address] [address] Jan Hood MCV (RBC) [Entitic vol] 96.0 fL Normal 81.0-99.0 [facility] Comment on above: Performed By: #### C BC #### [facility] [address] [place] [address] Dr. Jan Hood MONO # 0.6 103/ul Normal 0.3-0.8 [facility] Comment on above: Performed By: #### C BC #### [facility] [address] [place] [address] Dr. Jan Hood Monocytes/100 WBC (Bld) 8.0 % Normal 1.7-12.0 [facility] Comment on above: Performed By: #### C BC #### [facility] [address] [place] [address] Dr. Jan Hood NEUT # 4.2 103/ul Normal 1.4-6.5 [facility] Comment on above: Performed By: #### C BC #### [facility] [address] [place] [address] Dr. Jan Hood Neutrophils/100 WBC (Bld) 57.2 % Normal 43.0-75.0 [facility] Comment on above: Performed By: #### C BC #### [facility] [address] [place] [address] Dr. Jan Hood Platelet mean volume (Bld) [Entitic vol] 12.2 fL Normal 9.5-13.5 [facility] Comment on above: Performed By: #### C BC #### [facility] [address] [place] [address] Dr. aJn Hood PLT 174 103/ul Normal 150-450 [facility] Comment on above: Performed By: #### C BC #### [facility] [address] [place] [address] Dr. Jan Hood RBC 4.70 106/ul Normal 4.20-5.40 [facility] Comment on above: Performed By: #### C BC #### [facility] [address] [place] [address] Dr. Jan Hood WBC 7.4 103/ul Normal 4.0-11.0 [facility] Comment on above: Performed By: #### C BC #### [facility] [address] [place] [address] Dr. Jan Hood PROF CHEM 8 (BAS METB)on Anion gap [Moles/Vol] 11.5 mmol/L Normal [facility] Comment on above: Performed By: #### B MP #### [facility] [address] [place] [address] Dr. Jan Hood Calcium [Mass/Vol] 8.7 mg/dL Normal 8.5-10.1 [facility] Comment on above: Performed By: #### B MP #### [facility] [address] [place] [address] Dr. Jan Hood Chloride [Moles/Vol] 103 mmol/L Normal 98-107 [facility] Comment on above: Performed By: #### B MP #### [facility] [address] [place] [address] Dr. Jan Hood CO2 [Moles/Vol] 29.1 mmol/L Normal 22.0-30.0 [facility] Comment on above: Performed By: #### B MP #### [facility] [address] [place] [address] Dr. Jan Hood Creatinine [Mass/Vol] 0.75 mg/dL Normal 0.52-1.04 [facility] Comment on above: Performed By: #### B MP #### [facility] [address] [place] [address] Dr. Jan Hood EGFR-AF NAMIBIAN >60 Normal >=60 [facility] Comment on above: Performed By: #### B MP #### [facility] [address] [address] [address] Jan Hood EGFR-NON AF NAMIBIAN >60 Normal >=60 [facility] Comment on above: Performed By: #### B MP #### [facility] [address] [address] [address] Jan Hood Glucose [Mass/Vol] 91 mg/dL Normal 74-106 [facility] Comment on above: Performed By: #### B MP #### [facility] [address] [address] [address] Jan Hood Potassium [Moles/Vol] 3.6 mmol/L Normal 3.4-5.0 [facility] Comment on above: Performed By: #### B MP #### [facility] [address] [place] [address] Dr. Jan Hood Sodium [Moles/Vol] 140 mmol/L Normal 137-145 [facility] Comment on above: Performed By: #### B MP #### [facility] [address] [place] [address] Dr. Jan Hood Urea nitrogen [Mass/Vol] 8.0 mg/dL Normal 7.0-18.0 [facility] Comment on above: Performed By: #### B MP #### [facility] [address] [place] [address] Dr. Jan Hood Urea nitrogen/Creatinine [Mass ratio] 10.7 mg/mg Normal [facility] Comment on above: Performed By: #### B MP #### [facility] [address] [place] [address] Dr. Jan Hood Covid-19 PCR (CVDTB)on 05-09 SARS-CoV-2 (COVID-19) RNA DINA+probe Ql (Unsp spec) Not detected Normal NOT DETECTED [facility] Comment on above: Result Comment: This test is not yet approved or cleared by the [place] FDA. When there are no FDA-approved or cleared tests available, and other criteria are met, FDA can make tests available under an emergency access mechanism called an Emergency Use Authorization (EUA). The EUA for this test is supported by the [place] of Health and Human Service's (HHS's) declaration that circumstances exist to justify the emergency use of in vitro diagnostics for the detection and/or diagnosis of the virus that causes COVID-19. This EUA will remain in effect (meaning this test can be used) for the duration of the COVID-19 declaration justifying emergency of IVDs, unless it is terminated or revoked by FDA (after which the test may no longer be used). When diagnostic testing is negative, the possibility of a false negative should be considered in the context of a patient's recent exposures and the presence of clinical signs and symptoms consistent with SARS-CoV-2. Performed By: #### [facility] [place] #### [facility] [address] [place] [address] ABD/PELV W CONon 05-11-20 CT ABD/PELV W CON EXAMINATION: CT ABD/PELV W CON, 05/11/2021 1:35 PM EDT HISTORY: Abdominal colic , right lower quadrant pain COMPARISON: 12/24/2019 TECHNIQUE: CT scan of the abdomen and pelvis was performed with IV contrast. CT dose reduction technique was used, including Automated Exposure Control. FINDINGS: LUNG BASES: No visible pulmonary or pleural disease. LIVER: Scattered hypodensities too small to fully characterize. Hepatomegaly. Surgical clips from cholecystectomy BILIARY: No dilatation or calcification. PANCREAS: No lesion, fluid collection, ductal dilatation, or atrophy. SPLEEN: No enlargement or focal lesion. ADRENALS: No mass or enlargement. KIDNEYS: No mass, obstruction, or calcification. BOWEL/MESENTERY: Moderate amount of stool in the cecum. Nonobstructive bowel gas pattern. Normal appendix best visualized on axial image 93 AORTA/VASCULAR: No aneurysm or dissection. RETROPERITONEUM: No mass or adenopathy. LYMPH NODES: No adenopathy. URINARY BLADDER: Marked distention of the urinary bladder PELVIC ORGANS: Hysterectomy ABDOMINAL WALL: No mass or hernia. BONES: No bony lesion or fracture. OTHER: Negative. IMPRESSION: Normal appendix Marked distention of the urinary bladder Moderate amount stool in the cecum with a nonobstructive bowel gas pattern Electronically authenticated by: EMILY HARRIS Date: 2021-05-11 19:50 Normal [facility] AMYLASEon 04-27-2021 Amylase [Catalytic activity/Vol] 76 U/L Normal 31-110 [facility] Comment on above: Performed By: #### B MP, JOSE A, LDH, LIPA, LIVER #### [facility] [address] [place] [address] Dr. Jan Hood CBC AUTO DIFFon 04-27-2021 BASO # 0.0 103/ul Normal 0.0-0.1 [facility] Comment on above: Performed By: #### C BC #### [facility] [address] [place] [address] Dr. Jan Hood Basophils/100 WBC (Bld) 0.6 % Normal 0.2-2.0 [facility] Comment on above: Performed By: #### C BC #### [facility] [address] [place] [address] Dr. Jan Hood EO # 0.2 103/ul Normal 0.0-0.7 [facility] Comment on above: Performed By: #### C BC #### [facility] [address] [place] [address] Dr. Jan Hood Eosinophils/100 WBC (Bld) 2.4 % Normal 0.9-7.0 [facility] Comment on above: Performed By: #### C BC #### [facility] [address] [place] [address] Dr. Jan Hood Erythrocyte distribution width (RBC) [Ratio] 11.9 % Normal 11.0-15.0 [facility] Comment on above: Performed By: #### C BC #### [facility] [address] [place] [address] Dr. Jan Hood Hematocrit (Bld) [Volume fraction] 42.7 % Normal 36.0-48.0 [facility] Comment on above: Performed By: #### C BC #### [facility] [address] [place] [address] Dr. Jan Hood Hemoglobin (Bld) [Mass/Vol] 14.4 g/dL Normal 12.0-16.0 [facility] Comment on above: Performed By: #### C BC #### [facility] [address] [place] [address] Dr. Jan Hood IG # 0.02 10e3/ul Normal 0.00-0.03 [facility] Comment on above: Performed By: #### C BC #### [facility] [address] [place] [address] Dr. Jan Hood IG % 0.3 % Normal 0.0-0.5 [facility] Comment on above: Performed By: #### C BC #### [facility] [address] [place] [address] Dr. Jan Hood LYMPH # 2.4 103/ul Normal 1.2-3.8 [facility] Comment on above: Performed By: #### C BC #### [facility] [address] [place] [address] Dr. Jan Hood Lymphocytes/100 WBC (Bld) 34.1 % Normal 20.5-60.0 [facility] Comment on above: Performed By: #### C BC #### [facility] [address] [place] [address] Dr. Jan Hood MANUAL DIFF REQ NO Normal [facility] Comment on above: Performed By: #### C BC #### [facility] [address] [place] [address] Dr. Jan Hood MCH (RBC) [Entitic mass] 32.3 pg Normal 26.7-34.0 [facility] Comment on above: Performed By: #### C BC #### [facility] [address] [place] [address] Dr. Jan Hood MCHC (RBC) [Mass/Vol] 33.7 g/dL Normal 29.9-35.2 [facility] Comment on above: Performed By: #### C BC #### [facility] [address] [place] [address] Dr. Jan Hood MCV (RBC) [Entitic vol] 95.7 fL Normal 81.0-99.0 [facility] Comment on above: Performed By: #### C BC #### [facility] [address] [place] [address] Dr. Jan Hood MONO # 0.4 103/ul Normal 0.3-0.8 [facility] Comment on above: Performed By: #### C BC #### [facility] [address] [place] [address] Dr. Jan Hood Monocytes/100 WBC (Bld) 6.3 % Normal 1.7-12.0 [facility] Comment on above: Performed By: #### C BC #### [facility] [address] [place] [address] Dr. Jan Hood NEUT # 3.9 103/ul Normal 1.4-6.5 [facility] [facility] Comment on above: Performed By: #### C BC #### [facility] [address] [place] [address] Dr. Jan Hood Neutrophils/100 WBC (Bld) 56.3 % Normal 43.0-75.0 [facility] Comment on above: Performed By: #### C BC #### [facility] [address] [place] [address] Dr. Jan Hood Platelet mean volume (Bld) [Entitic vol] 12.7 fL Normal 9.5-13.5 [facility] Comment on above: Performed By: #### C BC #### [facility] [address] [place] [address] Dr. Jan Hood PLT 143 103/ul Critically low 150-450 [facility] Comment on above: Performed By: #### C BC #### [facility] [address] [place] [address] Dr. Jan Hood RBC 4.46 106/ul Normal 4.20-5.40 [facility] Comment on above: Performed By: #### C BC #### [facility] [address] [place] [address] Dr. Jan Hood WBC 7.0 103/ul Normal 4.0-11.0 [facility] Comment on above: Performed By: #### C BC #### [facility] [address] [place] [address] Dr. Jan Hood LDHon 04-27-2021 LDH 126 U/L Normal 122-222 [facility] Comment on above: Performed By: #### B MP, JOSE A, LDH, LIPA, LIVER ####[facility] [address] [address]Dr. Jan Hood LIPASEon 04-27-2021 Lipase [Catalytic activity/Vol] 300.0 U/L Normal 23.0-300.0 [facility] Comment on above: Performed By: #### B MP, JOSE A, LDH, LIPA, LIVER ####[facility] [address] [address]Dr. Jan Hood LIVER PROFILEon 04-27-2021 Albumin [Mass/Vol] 4.0 g/dL Normal 3.5-5.0 [facility] Comment on above: Performed By: #### B MP, JOSE A, LDH, LIPA, LIVER #### [facility] [address] [place] [address] Dr. Jan Hood Albumin/Globulin [Mass ratio] 1.4 {ratio} Normal [facility] Comment on above: Performed By: #### B MP, JOSE A, LDH, LIPA, LIVER #### [facility] [address] [address] [address] Jan Hood ALP [Catalytic activity/Vol] 76 U/L Normal 38-126 [facility] Comment on above: Performed By: #### B MP, JOSE A, LDH, LIPA, LIVER #### [facility] [address] [place] [address] Dr. Jan Hood ALT [Catalytic activity/Vol] 17 U/L Normal 9-52 [facility] Comment on above: Performed By: #### B MP, JOSE A, LDH, LIPA, LIVER #### [facility] [address] [address] [address] Jan Hood AST [Catalytic activity/Vol] 18 U/L Normal 14-36 [facility] Comment on above: Performed By: #### B MP, JOSE A, LDH, LIPA, LIVER #### [facility] [address] [address] [address] Jan Hood BILI, CONJUGATED 0.1 mg/dL Normal 0.0-0.3 [facility] Comment on above: Performed By: #### B MP, JOSE A, LDH, LIPA, LIVER #### [facility] [address] [address] [address] Jan Hood Bilirubin [Mass/Vol] 0.5 mg/dL Normal 0.2-1.3 [facility] Comment on above: Performed By: #### B MP, JOSE A, LDH, LIPA, LIVER #### [facility] [address] [address] [address] Jan Hood Globulin (S) [Mass/Vol] 2.9 g/dL Normal [facility] Comment on above: Performed By: #### B MP, JOSE A, LDH, LIPA, LIVER #### [facility] [address] [place] [address] Dr. Jan Hood Protein [Mass/Vol] 6.9 g/dL Normal 6.1-8.2 [facility] Comment on above: Performed By: #### B MP, JOSE A, LDH, LIPA, LIVER #### [facility] [address] [address] [address] Jan Hood PROF CHEM 8 (BAS METB)on Anion gap [Moles/Vol] 7.4 mmol/L Normal [facility] Comment on above: Performed By: #### B MP, JOSE A, LDH, LIPA, LIVER ####[facility] [address] [address]DrMaureen Hood Calcium [Mass/Vol] 9.0 mg/dL Normal 8.4-10.2 [facility] Comment on above: Performed By: #### B MP, JOSE A, LDH, LIPA, LIVER ####[facility] [address] [address]DrMaureen Hood Chloride [Moles/Vol] 102 mmol/L Normal 98-107 [facility] Comment on above: Performed By: #### B MP, JOSE A, LDH, LIPA, LIVER ####[facility] [address] [address]Dr. Jan Hood CO2 [Moles/Vol] 31.3 mmol/L Critically high 22.0-30.0 [facility] Comment on above: Performed By: #### B MP, JOSE A, LDH, LIPA, LIVER ####[facility] [address] [place] [address]Dr. Jan Hood Creatinine [Mass/Vol] 0.84 mg/dL Normal 0.52-1.04 [facility] Comment on above: Performed By: #### B MP, JOSE A, LDH, LIPA, LIVER ####[facility] [address] [address]Dr. Jan Hood EGFR-AF NAMIBIAN >60 Normal >=60 [facility] Comment on above: Performed By: #### B MP, JOSE A, LDH, LIPA, LIVER ####[facility] [address] [place], [place] [address]Dr. Jan Hood EGFR-NON AF NAMIBIAN >60 Normal >=60 [facility] Comment on above: Performed By: #### B MP, JOSE A, LDH, LIPA, LIVER ####[facility] [address] [place], [place] [address]Dr. Jan Hood Glucose [Mass/Vol] 113 mg/dL Critically high 74-106 [facility] Comment on above: Performed By: #### B MP, JOSE A, LDH, LIPA, LIVER ####[facility] [address] [address]Dr. Jan Hood Potassium [Moles/Vol] 3.7 mmol/L Normal 3.4-5.0 [facility] Comment on above: Performed By: #### B MP, JOSE A, LDH, LIPA, LIVER ####[facility] [address] [place], [place] [address]Dr. Jan Hood Sodium [Moles/Vol] 137 mmol/L Normal 137-145 [facility] Comment on above: Performed By: #### B MP, JOSE A, LDH, LIPA, LIVER ####[facility] [address] [place] [address]Dr. Jan Hood Urea nitrogen [Mass/Vol] 11.0 mg/dL Normal 7.0-17.0 [facility] Comment on above: Performed By: #### B MP, JOSE A, LDH, LIPA, LIVER ####[facility] [address] [place], [place] [address]BpMaureen Hood Urea nitrogen/Creatinine [Mass ratio] 13.1 mg/mg Normal [facility] Comment on above: Performed By: #### B MP, JOSE A, LDH, LIPA, LIVER ####[facility] [address] [place], [place] [address]Yq. Jan Hood MRI CERVICAL SPINE WO CONTRA STon 10-18-2020 1. Relatively mild discogenic change as described above resulting in mild right foraminal narrowing at C4-C5 and mild left foraminal narrowing at C5-C6. 2. No central stenosis. 3. Straightening and slight reversal of the cervical lordosis likely relates to positioning or muscle spasm. There is no fracture or spondylolisthesis. [employer] Phone: EXAM: MRI CERVICAL SPINE WO CONTRAST COMPARISON: Cervical spine x-rays from 08/26/2020. HISTORY: Right-sided neck pain and pain in the right shoulder since 08/23/2020. History of a pulling injury with physical therapy over the last 2 months. TECHNIQUE: Multiplanar and multisequence imaging of the cervical spine was performed without contrast. FINDINGS: There is straightening and slight reversal of the cervical lordosis. No fracture or spondylolisthesis is evident. The vertebral body heights are maintained. There is disc desiccation throughout the cervical spine. No acute abnormality is identified in the visualized posterior fossa or at the craniocervical junction. No focal cord signal abnormality is visualized. There are several subcentimeter short axis cervical chain lymph nodes bilaterally. No gross abnormality of the visualized thyroid gland is identified. C2-C3: No focal disc herniation is evident. There is no central or foraminal stenosis. C3-C4: There is a mild disc bulge without central or foraminal stenosis. C4-C5: There is a small broad-based disc protrusion with associated uncovertebral spurring. No associated central stenosis is evident. There is mild right foraminal narrowing with the uncovertebral spurring more pronounced on the right. C5-C6: There is a mild disc bulge with a left uncovertebral/forami nal disc-osteophyte complex resulting in mild left foraminal narrowing without central stenosis. C6-C7: There is a small 2 mm broad-based disc protrusion and mild uncovertebral spurring. No central or foraminal stenosis is evident. [employer] Phone: Joey, pn Incoming Radiant Results From [employer] - 10/18/2020 2:37 PM EDT EXAM: MRI CERVICAL SPINE WO CONTRAST COMPARISON: Cervical spine x-rays from 08/26/2020. HISTORY: Right-sided neck pain and pain in the right shoulder since 08/23/2020. History of a pulling injury with physical therapy over the last 2 months. TECHNIQUE: Multiplanar and multisequence imaging of the cervical spine was performed without contrast. FINDINGS: There is straightening and slight reversal of the cervical lordosis. No fracture or spondylolisthesis is evident. The vertebral body heights are maintained. There is disc desiccation throughout the cervical spine. No acute abnormality is identified in the visualized posterior fossa or at the craniocervical junction. No focal cord signal abnormality is visualized. There are several subcentimeter short axis cervical chain lymph nodes bilaterally. No gross abnormality of the visualized thyroid gland is identified. C2-C3: No focal disc herniation is evident. There is no central or foraminal stenosis. C3-C4: There is a mild disc bulge without central or foraminal stenosis. C4-C5: There is a small broad-based disc protrusion with associated uncovertebral spurring. No associated central stenosis is evident. There is mild right foraminal narrowing with the uncovertebral spurring more pronounced on the right. C5-C6: There is a mild disc bulge with a left uncovertebral/forami nal disc-osteophyte complex resulting in mild left foraminal narrowing without central stenosis. C6-C7: There is a small 2 mm broad-based disc protrusion and mild uncovertebral spurring. No central or foraminal stenosis is evident. IMPRESSION: 1. Relatively mild discogenic change as described above resulting in mild right foraminal narrowing at C4-C5 and mild left foraminal narrowing at C5-C6. 2. No central stenosis. 3. Straightening and slight reversal of the cervical lordosis likely relates to positioning or muscle spasm. There is no fracture or spondylolisthesis. [employer] Phone: XR CERVICAL SPINE (4-5 VIEWS )on 08-26-2020 Early degenerative changes. No cervical spine fracture on plain film. [employer] Phone: EXAM: XR CERVICAL SPINE (4-5 VIEWS) HISTORY: Reason for exam:->injury at work COMPARISON: None. TECHNIQUE: Cervical spine AP lateral oblique and odontoid views total of 7 images. FINDINGS: Early degenerative changes at C4-C5. Straightening of the cervical spine suggests soft tissue spasm. Early facet degenerative changes at C7-T1. Spinous processes normal. Prevertebral soft tissues are normal. Impacted wisdom teeth. Intervertebral foramina patent. Lung apices clear. Odontoid best seen on the foramen magnum view is otherwise obscured by the teeth. Normal on the lateral view. [employer] Phone: Joey, [facility] Incoming Radiant Results From [employer] - 08/26/2020 2:26 PM EST EXAM: XR CERVICAL SPINE (4-5 VIEWS) HISTORY: Reason for exam:->injury at work COMPARISON: None. TECHNIQUE: Cervical spine AP lateral oblique and odontoid views total of 7 images. FINDINGS: Early degenerative changes at C4-C5. Straightening of the cervical spine suggests soft tissue spasm. Early facet degenerative changes at C7-T1. Spinous processes normal. Prevertebral soft tissues are normal. Impacted wisdom teeth. Intervertebral foramina patent. Lung apices clear. Odontoid best seen on the foramen magnum view is otherwise obscured by the teeth. Normal on the lateral view. IMPRESSION: Early degenerative changes. No cervical spine fracture on plain film. [employer] Phone: ABDOMEN 1 VWon 05-08-2018 [facility] 1 [facility] [address] [place] [address] Patien t Name: FRAN HERNANDEZ : 1980Sex: FAge: Race: WhiteMRN: [id number]. Location: 260Patient Status: DVisit #: [id number] Date: 05/08/2018 2:05:00 PMCompleted Date: 05/08/2018 02:22 PMRequesting Provider: VANDANA CLARK Attending Provider: CLAUDIA PEPE Report Copy To: Signs & Symptoms: R19.7 Diarrhea, unspecified K79Rehrgnu: AthenaComments: , r/o constipation , r/o constipation , , , Ordering Provider - ARELI CORNELL , Exam: ABDOMEN 1 VWAccession #: [id number] =ABDOMEN 1 VW 05/08/2018 2:22 PM EDT SIGNS AND SYMPTOMS: R19.7 Diarrhea, unspecified I10 TECHNOLOGIST COMMENTS: Pt c/o abdomen pain. Pt states hx pancreatitis x 1 month. QUESTION FOR THE RADIOLOGIST: , r/o constipation , r/o constipation , , , Ordering Provider - CHACORTA CORNELLRFID MANAGER , PROTOCOL: AP(PA) view was obtained. COMPARISON: None FINDINGS: 2 views of the abdomen and pelvis revealed nonobstructive bowel gas pattern. Mild amount of fecal residue mixed with air is seen throughout the colon and rectum. Metallic clips are seen in the right upper quadrant possibly from prior cholecystectomy. Visualized lung bases appeared unremarkable. IMPRESSION: Nonobstructive bowel gas pattern. Suggestion of prior cholecystectomy. Electronically signed by:Diane Bella. Transcribed by: [email or web address], User Resident: Electronically Signed by: DIANE BELLA @ 05/09/2018 09:52 AM Normal [facility] Comment on above: Order Comment: , r/o constipation , r/o constipation , , , Ordering Provider - ARELI CORNELL , Vital Signs Date Time Vital Sign Value Performing Clinician [facility] 07-30-2024 08:23-0500 Body height 180.3 cm Forrest Winddameongel FOXING PAINTER Work Phone: [facility] 07-30-2024 08:23-0500 Body mass index (BMI) [Ratio] 26.5 kg/m2 Forrest Windnagel FOXING PAINTER Work Phone: [facility] 07-30-2024 08:23-0500 Body weight 86.18 kg Forrest Shannonnagel FOXING PAINTER Work Phone: [facility] 07-30-2024 08:23-0500 Diastolic blood pressure 80 mm[Hg] Forrest Windnagel FOXING PAINTER Work Phone: [facility] 07-30-2024 08:23-0500 Systolic blood pressure 138 mm[Hg] Forrest Windnagel FOXING PAINTER Work Phone: [facility] 07-21-2023 14:41-0500 Body height 180.3 cm Leatha Hawkins PA-C Work Phone: [facility] 07-21-2023 14:41-0500 Body mass index (BMI) [Ratio] 20.36 kg/m2 Leatha Hawkins PA-C Work Phone: [facility] 07-21-2023 14:41-0500 Body temperature 97.39 [degF] Leatha Hawkins PA-C Work Phone: [facility] 07-21-2023 14:41-0500 Body weight 66.22 kg Leatha Hawkins PA-C Work Phone: [facility] 07-21-2023 14:41-0500 Diastolic blood pressure 83 mm[Hg] Leatha Hawkins PA-C Work Phone: [facility] 07-21-2023 14:41-0500 Heart rate 88 /min Leatha Hawkins PA-C Work Phone: [facility] 07-21-2023 14:41-0500 Respiratory rate 14 /min Leatha Hawkins PA-C Work Phone: [facility] 07-21-2023 14:41-0500 SaO2% (BldA) [Mass fraction] 97 % Leatha Hawkins PA-C Work Phone: [facility] 07-21-2023 14:41-0500 Systolic blood pressure 118 mm[Hg] Leatha Hawkins PA-C Work Phone: [facility] 12-27-2022 19:40-0400 Body height 180.3 cm Haley Ray MD Work Phone: [employer] 12-27-2022 19:40-0400 Body mass index (BMI) [Ratio] 20.08 kg/m2 Haley Ray MD Work Phone: [employer] 12-27-2022 19:40-0400 Body temperature 98.2 [degF] Haley Ray MD Work Phone: [employer] 12-27-2022 19:40-0400 Body weight 65.32 kg Haley Ray MD Work Phone: [employer] 12-27-2022 19:40-0400 Diastolic blood pressure 54 mm[Hg] Haley Ray MD Work Phone: [employer] 12-27-2022 19:40-0400 Heart rate 80 /min Haley Ray MD Work Phone: [employer] 12-27-2022 19:40-0400 Respiratory rate 18 /min Haley Ray MD Work Phone: [employer] 12-27-2022 19:40-0400 SaO2% (BldA) [Mass fraction] 98 % Haley Ray MD Work Phone: [employer] 12-27-2022 19:40-0400 Systolic blood pressure 109 mm[Hg] Haley Ray MD Work Phone: [facility] 11-06-2022 13:11-0400 Body height 180.3 cm Grace SINGLETON Work Phone: [facility] 11-06-2022 13:11-0400 Body mass index (BMI) [Ratio] 20.36 kg/m2 Grace SINGLETON Work Phone: [facility] 11-06-2022 13:11-0400 Body weight 66.22 kg Graceconstance SINGLETON Work Phone: [facility] 11-06-2022 13:11-0400 Diastolic blood pressure 62 mm[Hg] Grace SINGLETON Work Phone: [facility] 11-06-2022 13:11-0400 Heart rate 72 /min Grace SINGLETON Work Phone: [facility] 11-06-2022 13:11-0400 Respiratory rate 16 /min Grace SINGLETON Work Phone: [facility] 11-06-2022 13:11-0400 SaO2% (BldA) [Mass fraction] 98 % Grace SINGLETON Work Phone: [facility] 11-06-2022 13:11-0400 Systolic blood pressure 104 mm[Hg] Grace Flores APRN-RFID MANAGER Work Phone: [facility] 09-23-2022 00:31-0400 Diastolic blood pressure 74 mm[Hg] Jennifer Adhikari MD Work Phone: [facility] 09-23-2022 00:31-0400 Heart rate 77 /min Jennifer Adhikari MD Work Phone: [facility] 09-23-2022 00:31-0400 Respiratory rate 16 /min Jennifer Adhikari MD Work Phone: [employer] [facility] 09-23-2022 00:31-0400 SaO2% (BldA) [Mass fraction] 99 % Jennifer Adhikari MD Work Phone: [facility] [employer] 09-23-2022 00:31-0400 Systolic blood pressure 110 mm[Hg] Jennifer Adhikari MD Work Phone: [facility] [employer] 09-22-2022 19:41-0400 Body height 180.3 cm Jennifer Adhikari MD Work Phone: [facility] [employer] 09-22-2022 19:41-0400 Body mass index (BMI) [Ratio] 23.01 kg/m2 Jennifer Adhikari MD Work Phone: [facility] 09-22-2022 19:41-0400 Body temperature 97.39 [degF] Jennifer Adhikari MD Work Phone: [facility] 09-22-2022 19:41-0400 Body weight 74.84 kg Jennifer Adhikari MD Work Phone: [facility] [employer] 09-10-2022 18:21-0500 Body height 177.8 cm Honorio Vasquez MD Work Phone: [facility] 09-10-2022 18:21-0500 Body mass index (BMI) [Ratio] 23.68 kg/m2 Honorio Vasquez MD Work Phone: [facility] 09-10-2022 18:21-0500 Body weight 74.84 kg Honorio Vasquez MD Work Phone: [facility] 09-10-2022 18:21-0500 Diastolic blood pressure 77 mm[Hg] Honorio Vasquez MD Work Phone: [employer] [facility] 09-10-2022 18:21-0500 Heart rate 75 /min Honorio Vasquez MD Work Phone: [facility] 09-10-2022 18:21-0500 Respiratory rate 16 /min Honorio Vasquez MD Work Phone: [facility] 09-10-2022 18:21-0500 SaO2% (BldA) [Mass fraction] 97 % Honorio Vasquez MD Work Phone: [facility] 09-10-2022 18:21-0500 Systolic blood pressure 113 mm[Hg] Honorio Vasquez MD Work Phone: [facility] 09-10-2022 17:05-0500 Body temperature 98.2 [degF] Honorio Vasquez MD Work Phone: [facility] 07-31-2022 09:34-0500 Body height 180.3 cm Tanner Hsu MD Work Phone: [facility] 07-31-2022 09:34-0500 Body mass index (BMI) [Ratio] 20.17 kg/m2 Tanner Hsu MD Work Phone: [facility] 07-31-2022 09:34-0500 Body weight 65.59 kg Tanner Hsu MD Work Phone: [facility] 07-31-2022 09:34-0500 Diastolic blood pressure 70 mm[Hg] Tanner Hsu MD Work Phone: [facility] 07-31-2022 09:34-0500 Heart rate 75 /min Tanner Hsu MD Work Phone: [facility] 07-31-2022 09:34-0500 SaO2% (BldA) [Mass fraction] 96 % Tanner Hsu MD Work Phone: [facility] Comment on above: RA 07-31-2022 09:34-0500 Systolic blood pressure 112 mm[Hg] Tanner Hsu MD Work Phone: [facility] 05-17-2022 12:45-0500 Diastolic blood pressure 58 mm[Hg] Tanner Hsu MD Work Phone: [facility] 05-17-2022 12:45-0500 Heart rate 64 /min Tanner Hsu MD Work Phone: [facility] 05-17-2022 12:45-0500 Respiratory rate 24 /min Tanner Hsu MD Work Phone: [facility] 05-17-2022 12:45-0500 SaO2% (BldA) [Mass fraction] 97 % Tanner Hsu MD Work Phone: [facility] 05-17-2022 12:45-0500 Systolic blood pressure 108 mm[Hg] Tanner Hsu MD Work Phone: [facility] 05-17-2022 11:02-0500 Body height 180.3 cm Tanner Hsu MD Work Phone: [facility] 05-17-2022 11:02-0500 Body temperature 98.2 [degF] Tanner Hsu MD Work Phone: [facility] 04-20-2022 15:16-0400 Body mass index (BMI) [Ratio] 22.08 kg/m2 Layla Keller DO Work Phone: [facility] 04-20-2022 15:16-0400 Body weight 63.96 kg Layla Keller DO Work Phone: [facility] 04-20-2022 15:16-0400 Diastolic blood pressure 74 mm[Hg] Layla Keller DO [facility] Phone: [facility] 04-20-2022 15:16-0400 Heart rate 93 /min Layla Krishna DO Work Phone: [facility] 04-20-2022 15:16-0400 Respiratory rate 16 /min Layla Krishna DO Work Phone: [facility] 04-20-2022 15:16-0400 SaO2% (BldA) [Mass fraction] 99 % Layla Krishna DO Work Phone: [facility] [employer] Egil Kvaleberg 04-20-2022 15:16-0400 Systolic blood pressure 114 mm[Hg] Layla Krishna DO Work Phone: [facility] [employer] Egil Kvaleberg 04-20-2022 15:14-0400 Body temperature 98.6 [degF] Layla Krishna DO Work Phone: [facility] 04-17-2022 09:01-0400 Body height 180.3 cm Tanner Hsu MD Work Phone: [facility] 04-17-2022 09:01-0400 Body mass index (BMI) [Ratio] 19.64 kg/m2 Tanner Hsu MD Work Phone: [facility] 04-17-2022 09:01-0400 Body weight 63.87 kg Tanner Hsu MD Work Phone: [facility] 04-17-2022 09:01-0400 Diastolic blood pressure 70 mm[Hg] Tanner Hsu MD Work Phone: [facility] 04-17-2022 09:01-0400 Heart rate 76 /min Tanner Hsu MD Work Phone: [facility] 04-17-2022 09:01-0400 SaO2% (BldA) [Mass fraction] 98 % Tanner Hsu MD Work Phone: 9(059)841-073577 [place] [address] 04-17-2022 09:01-0400 Systolic blood pressure 110 mm[Hg] Tanner Hsu MD Work Phone: 8(327)351-040677 [place] [address] 04-11-2022 13:34-0400 Body height 180.3 cm Tanner Hsu MD Work Phone: 4(037)988-080377 [place] [address] 04-11-2022 13:34-0400 Body mass index (BMI) [Ratio] 19.67 kg/m2 Tanner Hsu MD Work Phone: 0(748)027-515677 [place] [address] 04-11-2022 13:34-0400 Body weight 63.96 kg Tanner Hsu MD Work Phone: 6(922)324-795377 [place] [address] 04-11-2022 13:34-0400 Diastolic blood pressure 59 mm[Hg] Tanner Hsu MD Work Phone: 7(342)791-158077 [place] [address] 04-11-2022 13:34-0400 Heart rate 71 /min Tanner Hsu MD Work Phone: 4(569)300-684577 [place] [address] 04-11-2022 13:34-0400 Systolic blood pressure 112 mm[Hg] Tanner Hsu MD Work Phone: 2(397)128-502977 [place] [address] 01-20-2022 11:11-0400 Body height 180.3 cm Tanner Hsu MD Work Phone: 8(769)938-034477 [place] [address] 01-20-2022 11:11-0400 Body mass index (BMI) [Ratio] 20.31 kg/m2 Tanner Hsu MD Work Phone: 2(794)496-007177 [place] [address] 01-20-2022 11:11-0400 Body weight 66.04 kg Tanner Hsu MD Work Phone: 5(161)333-252777 [place] [address] 07-15-2022 11:11-0400 Diastolic blood pressure 60 mm[Hg] Tanner Hsu MD Work Phone: [facility] 01-20-2022 11:11-0400 Heart rate 79 /min Tanner Hsu MD Work Phone: [facility] 01-20-2022 11:11-0400 SaO2% (BldA) [Mass fraction] 95 % Tanner Hsu MD Work Phone: [facility] Comment on above: RA 01-20-2022 11:11-0400 Systolic blood pressure 92 mm[Hg] Tanner Hsu MD Work Phone: [facility] 11-28-2020 17:14-0400 Diastolic blood pressure 69 mm[Hg] William Gibbs MD Work Phone: [employer] Work Phone: 11-28-2020 17:14-0400 Systolic blood pressure 122 mm[Hg] William Gibbs MD Work Phone: [employer] Work Phone: 11-28-2020 17:13-0400 Body mass index (BMI) [Ratio] 22.55 kg/m2 William Gibbs MD Work Phone: [employer] Work Phone: 11-28-2020 17:13-0400 Body temperature 98.91 [degF] William Gibbs MD Work Phone: [employer] Work Phone: 11-28-2020 17:13-0400 Body weight 65.32 kg William Gibbs MD Work Phone: [employer] Work Phone: 11-28-2020 17:13-0400 Heart rate 88 /min William Gibbs MD Work Phone: [employer] Work Phone: 11-28-2020 17:13-0400 Respiratory rate 18 /min William Gibbs MD Work Phone: [employer] Work Phone: 11-28-2020 17:13-0400 SaO2% (BldA) [Mass fraction] 97 % William Gibbs MD Work Phone: [employer] Work Phone: 08-26-2020 13:37-0500 BMI (Body Mass Index) 20.99 kg/m2 [employer] Work Phone: 08-26-2020 13:37-0500 Body Temperature 98.2 [degF] [employer] Work Phone: 08-26-2020 13:37-0500 Body weight 60.78 kg [employer] Work Phone: 08-26-2020 13:37-0500 BP Diastolic 67 mm[Hg] [employer] Work Phone: 08-26-2020 13:37-0500 BP Systolic 116 mm[Hg] [employer] Work Phone: 08-26-2020 13:37-0500 Height 170.2 cm [employer] Work Phone: 08-26-2020 13:37-0500 Pulse (Heart Rate) 91 /min [employer] Work Phone: 08-26-2020 13:37-0500 Pulse Oximetry 100 % [employer] Work Phone: 08-26-2020 13:37-0500 Respiratory Rate 18 /min [employer] Work Phone: Encounters Encounter Date Encounter Type Care Provider Facility Start: 08-20-2024 End: 08-20-2024 ambulatory FORREST KIRAN Not Available Start: 07-30-2024 End: 07-30-2024 Bamboo flowsheet Forrest Kiran FOXING PAINTER Work Phone: [facility] Start: 07-30-2024 End: 07-30-2024 Bamboo flowsheet Forrest Kiran FOXING PAINTER Work Phone: [facility] Start: 07-30-2024 End: 07-30-2024 ambulatory FORREST KIRAN Not Available Start: 07-30-2024 End: 07-30-2024 Office outpatient visit 25 minutes Forrest Kiran FOXING PAINTER Work Phone: [facility] Comment on above: Migraine without aur a and without status migrainosus, not intractable (CMS/HCC) (Primary Dx); Hyperreflexia; Falls frequently; Gait instability Start: 07-17-2024 End: 07-18-2024 Telephone encounter Lynette Justice MD Work Phone: [facility] Start: 07-15-2024 End: 07-15-2024 Refill Honorio Vasquez MD Work Phone: [facility] Comment on above: Diarrhea, unspecifie d Start: 05-14-2024 End: 05-14-2024 Bamboo flowsheet Lynette Justice MD Work Phone: [facility] Start: 05-14-2024 End: 05-14-2024 Bamboo flowsheet Lynette Justice MD Work Phone: [facility] Start: 05-14-2024 End: 05-14-2024 Office outpatient visit 25 minutes Lynette Justice MD Work Phone: [facility] Comment on above: Cervical dystonia; Migraine without aura and without status migrainosus, not intractable (CMS/HCC); Cervical radiculopathy; Neurocardiogenic syncope Start: 05-14-2024 End: 05-14-2024 ambulatory LYNETTE JUSTICE Not Available Start: 03-19-2024 End: 03-19-2024 Refill Honorio Vasquez MD Work Phone: [facility] Comment on above: Diarrhea, unspecifie d Start: 03-17-2024 End: 03-17-2024 Telephone encounter Vandana Shah FOXING PAINTER Work Phone: [facility] Start: 02-07-2024 End: 02-07-2024 ambulatory LYNETTE W JUSTICE Not Available Start: 11-15-2023 End: 11-15-2023 ambulatory LYNETTE W JUSTICE Not Available Start: 10-24-2023 End: 10-24-2023 ambulatory LYNETTE W JUSTICE Not Available Start: 09-20-2023 Patient encounter procedure Vandana Shah FOXING PAINTER Work Phone: [facility] Start: 09-20-2023 End: 09-20-2023 ambulatory HONORIO VASQUEZ Not Available Start: 08-05-2023 End: 08-05-2023 Emergency department patient visit [facility] Start: 07-21-2023 End: 07-22-2023 ambulatory LEATHA HAWKINS [facility] Start: 07-21-2023 End: 07-21-2023 Office outpatient new 30 minutes Leatha Hawkins PA-C Work Phone: [facility] Comment on above: Effusion of left elb ow (Primary Dx); Left elbow fracture, closed, initial encounter Start: 01-28-2023 End: 01-28-2023 Emergency department patient visit Honorio Vasquez MD Facility:[facility] Start: 12-27-2022 Emergency department patient visit HONORIO [facility] Start: 12-27-2022 End: 12-27-2022 Emergency department patient visit Haley Ray MD Work Phone: [facility] Comment on above: Tendonitis (Primary Dx) Start: 11-06-2022 ambulatory HONORIO VASQUEZ Facility:[facility] Start: 11-06-2022 End: 11-06-2022 Office outpatient visit 25 minutes Grace Flores SMOKE JUMPER-RFID MANAGER Work Phone: [facility] Comment on above: Gastroesophageal ref lux disease without esophagitis (Primary Dx); RUQ pain; Irritable bowel syndrome with diarrhea; Gas bloat syndrome Start: 09-22-2022 End: 09-23-2022 Emergency department patient visit [facility] Start: 09-22-2022 End: 09-23-2022 Emergency department patient visit Jennifer Adhikari MD Work Phone: [facility] Comment on above: Colitis (Primary Dx) Start: 09-10-2022 End: 09-10-2022 Emergency department patient visit [facility] Start: 09-10-2022 End: 09-10-2022 Emergency department patient visit Honorio Vasquez MD Work Phone: [facility] Comment on above: Tension headache (Pr imary Dx) Start: 07-31-2022 ambulatory [facility] Facility:[facility] Start: 07-31-2022 End: 07-31-2022 Office outpatient visit 15 minutes Tanner Hsu MD Work Phone: [facility] Comment on above: Functional diarrhea (Primary Dx); Diarrhea of presumed infectious origin; Abdominal pain, unspecified abdominal location Start: 05-17-2022 ambulatory [facility] Facility:[facility] Start: 05-17-2022 End: 05-17-2022 Subsequent hospital visit by physician Tanner Hsu MD Work Phone: [facility] Start: 04-20-2022 End: 04-20-2022 Emergency department patient visit Layla Keller DO Work Phone: [facility] Comment on above: Sprain of right knee , unspecified ligament, initial encounter (Primary Dx); Knee effusion, right Start: 04-17-2022 ambulatory [facility] Facility:[facility] Start: 04-17-2022 End: 04-17-2022 Office outpatient visit 15 minutes Tanner Hsu MD Work Phone: [facility] Comment on above: Chronic diarrhea (Pr imary Dx); Family history of ulcerative colitis; Abdominal pain, unspecified abdominal location Start: 04-11-2022 ambulatory HONORIO VASQUEZ Facility:[facility] Start: 04-11-2022 End: 04-11-2022 Subsequent hospital visit by physician Tanner Hsu MD Work Phone: [facility] Comment on above: Arrived Start: 03-02-2022 End: 03-02-2022 Subsequent hospital visit by physician Tanner Hsu MD Work Phone: [facility] Comment on above: Canceled (Cancel Nadine son Not Listed - Please provide detailed information) Start: 03-02-2022 ambulatory TANNER HSU Facility:[facility] Start: 01-24-2022 End: 01-25-[address] HONORIO VASQUEZ Facility:[facility] Start: 01-20-2022 ambulatory SELF SELF Facility:[facility] Start: 01-20-2022 ambulatory SELF SELF Facility:[facility] Start: 01-20-2022 End: 01-20-2022 Office outpatient visit 15 minutes Tanner Hsu MD Work Phone: [facility] Comment on above: Chronic diarrhea (Pr imary Dx); Family history of ulcerative colitis; Abdominal pain, unspecified abdominal location Start: 12-09-2021 ambulatory TANNER HSU Facility:[facility] Start: 12-07-2021 ambulatory HONORIO VASQUEZ Facility:[facility] Start: 10-11-2021 End: 10-12-[address] HONORIO VASQUEZ Facility:[facility] Start: 08-19-2021 End: 08-19-[address] HONORIO VASQUEZ Facility:[facility] Start: 05-19-2021 End: 05-19-[address] HONORIO VASQUEZ Facility:[facility] Start: 05-11-2021 End: 05-12-[address] EMILY HARRIS Facility:[facility] Start: 04-27-2021 End: 04-28-[address] HONORIO VASQUEZ Facility:[facility] Start: 03-23-[address] HONORIO VASQUEZ Facil ity:[facility] Start: 11-28-2020 End: 11-28-2020 Emergency department patient visit William Gibbs MD Work Phone: [facility] Comment on above: Neck muscle spasm (P rimary Dx); Chronic neck pain Start: 11-01-2020 End: 11-01-2020 Subsequent hospital visit by physician Jesus Lion PTA [facility] Comment on above: Arrived Start: 10-29-2020 End: 10-29-2020 Subsequent hospital visit by physician Ele Colón [facility] Comment on above: Arrived Start: 10-26-2020 End: 10-26-2020 Subsequent hospital visit by physician Jesus Lion PTA [facility] Comment on above: Arrived Start: 10-25-2020 End: 10-25-2020 Subsequent hospital visit by physician Jesus Lion PTA [facility] Comment on above: Arrived Start: 10-21-2020 End: 10-21-2020 Subsequent hospital visit by physician Monisha Ramirez [facility] Comment on above: Arrived Start: 10-20-2020 End: 10-20-2020 Subsequent hospital visit by physician Concepcion Farr Work Phone: [facility] Comment on above: Arrived Start: 10-18-2020 End: 10-20-2020 Subsequent hospital visit by physician [facility] Comment on above: Strain of neck muscl e, initial encounter Start: 10-14-2020 End: 10-14-2020 Subsequent hospital visit by physician Concepcion Farr Work Phone: [facility] Comment on above: Arrived Start: 10-07-2020 End: 10-07-2020 Subsequent hospital visit by physician Jesus Lion [facility] Comment on above: Arrived Start: 10-05-2020 End: 10-05-2020 Subsequent hospital visit by physician Concepcion Farr Work Phone: [facility] Comment on above: Arrived Start: 09-28-2020 End: 09-28-2020 Subsequent hospital visit by physician Carissa Armando [facility] Comment on above: Arrived Start: 09-20-2020 End: 09-20-2020 Subsequent hospital visit by physician Ele Colón [facility] Start: 09-17-2020 End: 09-17-2020 Subsequent hospital visit by physician Concepcion Farr Work Phone: [facility] Comment on above: Arrived Start: 09-13-2020 End: 09-13-2020 Subsequent hospital visit by physician Ele Colón [facility] Start: 09-10-2020 End: 09-10-2020 Subsequent hospital visit by physician Concepcion Farr Work Phone: [facility] Start: 09-08-2020 End: 09-08-2020 Subsequent hospital visit by physician Concepcion Farr Work Phone: [facility] Comment on above: Arrived Start: 08-26-2020 End: 08-26-2020 Emergency department patient visit Wing Vigil Work Phone: [facility] Comment on above: Strain of neck muscl e, initial encounter (Primary Dx) Start: 06-06-2018 End: 06-07-2018 Patient encounter procedure CLAUDIA PEPE Facility:[facility] Start: 05-08-2018 End: 05-09-2018 Patient encounter procedure CLAUDIA PEPE Facility:[facility] Start: 06-26-2017 End: 06-27-2017 Patient encounter procedure DEFAULT PHYSICIAN Facility:[facility] Procedures Date Procedure Procedure Detail Performing Clinician Start: 07-21-2023 Application of splint K manda Hawkins PA-C Work Phone: Start: 07-21-2023 End: 07-21-2023 Radex elbow complete minimum 3 views Leatha Hawkins PA-C Work Phone: Start: 12-27-2022 End: 12-27-2022 Radex forearm 2 views Haley Ray MD Work Phone: Start: 09-22-2022 Ct abdomen & pelvis w/contrast material Jennifer Adhikari MD Work Phone: Start: 09-22-2022 End: 09-22-2022 Basic metabolic panel calcium total Jennifer Adhikari MD Work Phone: Start: 09-22-2022 Hepatic function panel Jennifer Adhikari MD Work Phone: Start: 09-10-2022 Ct head/brain w/o co ntrast material Prashanth Rogers PA-C Work Phone: Start: 05-17-2022 Colonoscopy flx dx w /collj spec when pfrmd Tanner Hsu MD Work Phone: Start: 05-17-2022 DIAGNOSTIC UPPER ENDOSCOPY Tanner Hsu MD Work Phone: Start: 04-20-2022 Radiologic examinati on knee 1/2 views Layla U Krishna DO Work Phone: Start: 04-11-2022 Mri abdomen w/o & w/contrast material Tanner Hsu MD Work Phone: Start: 10-18-2020 Mri spinal canal cer vical w/o contrast matrl Yadi Zhu Work Phone: Start: 08-26-2020 Radex spine cervical 4 or 5 views Veselin Yaritza Work Phone: Start: 06-06-2018 ANES UPR LWR GI NDSC PX BENITO ROSS Start: 06-06-2018 Colonoscopy w/biopsy single/multiple CLAUDIA PEPE Start: 06-06-2018 EGD US EXAM DUODENUM/JEJUNUM CLAUDIA PEPE Plan of Treatment Date Care Activity Detail Author Start: 07-30-2024 End: 07-30-2025 EMG 2 Extremities EMG 2 Extremities Neurology Routine Hyperreflexia Falls frequently Gait instability Expected: 07/30/2024 (Approximate), Expires: 07/30/2025 [facility] Comment on above: Expected: 07/30/2024 (Approximate), Expi res: 07/30/2025 Start: 07-30-2024 End: 07-30-2025 MR Brain WO and W contrast IV MR brain w and wo contrast routine Imaging Routine Hyperreflexia Falls frequently Gait instability Expected: 07/30/2024 (Approximate), Expires: 07/30/2025 [facility] Comment on above: Expected: 07/30/2024 (Approximate), Expi res: 07/30/2025 Start: 07-30-2024 End: 07-30-2025 MR Cervical spine WO and W contrast IV MR cervical spine w and wo contrast Imaging Routine Hyperreflexia Falls frequently Gait instability Expected: 07/30/2024, Expires: 07/30/2025 [facility] Work Phone: Comment on above: Expected: 07/30/2024, Expires: Start: 07-30-2024 End: 07-30-2024 Patient encounter procedure 07/30/2024 8:00 AM EST Office Visit [facility] [address] [phone] Forrest Kiran FOXING PAINTER [address] [phone] [facility] Start: 07-23-2024 End: 07-23-2024 Patient encounter procedure 07/23/2024 8:00 AM EST Office Visit [facility] [address] [phone] Lynette Justice MD [address] [address] [facility] Start: 05-14-2024 End: 05-14-2024 Patient encounter procedure 05/14/2024 1:40 PM EST Office Visit [facility] [address] [phone] Lynette Justice MD [address] [address] Arrived [facility] Comment on above: Arrived Start: 04-23-2024 End: 04-23-2024 Patient encounter procedure 04/23/2024 10:40 AM EDT Office Visit [facility] [address] [place] [phone] Lynette Justice MD [address] [place] [phone] [facility] Start: 03-09-2024 Influenza vaccination Influenza Vaccine (#1) [facility] Start: 03-14-2023 End: 03-14-2023 Telemedicine consultation with patient 03/14/2023 Telemedicine Gastroenterology Grace Flores, SMOKE JUMPER-RFID MANAGER [address] [place] [address] [phone] [facility] Start: 03-09-2023 Influenza vaccination [facility] Start: 02-06-2023 Influenza vaccination Flu vaccine (Season Ended) [facility] Start: 11-14-2022 End: 11-14-2022 Patient encounter procedure 11/14/2022 Appointment Endoscopy Tanner Hsu MD [address] [place], [place] [phone] [facility] Start: 11-06-2022 End: 11-06-2022 Patient encounter procedure 11/06/2022 Office Visit Gastroenterology Grace Flores, SMOKE JUMPER-RFID MANAGER [address] [place] [phone] [facility] Start: 07-31-2022 End: 07-31-2023 C DIFFICILE BY PCR (CLOSTRIDIUM DIFFICILE TOXIN) C DIFFICILE BY PCR (CLOSTRIDIUM DIFFICILE TOXIN) Microbiology Routine Functional diarrhea Expected: 07/31/2022, Expires: 07/31/2023 [facility] Comment on above: Expected: 07/31/2022, Expires: Start: 07-31-2022 End: 07-31-2023 CALPROTECTIN, STOOL CALPROTECTIN, STOOL Fluids Routine Diarrhea of presumed infectious origin Expected: 07/31/2022, Expires: 07/31/2023 [facility] Comment on above: Expected: 07/31/2022, Expires: 4 Start: 07-31-2022 End: 07-31-2023 MOLECULAR ENTERIC PANEL, STOOL MOLECULAR ENTERIC PANEL, STOOL Fluids Routine Functional diarrhea Expected: 07/31/2022, Expires: 07/31/2023 [facility] Comment on above: Expected: 07/31/2022, Expires: 4 Start: 07-31-2022 End: 07-31-2023 Ova OR parasites identification MOLECULAR STOOL PARASITE PANEL Microbiology Routine Functional diarrhea Expected: 07/31/2022, Expires: 07/31/2023 [facility] Comment on above: Expected: 07/31/2022, Expires: Start: 07-31-2022 End: 07-31-2022 Patient encounter procedure 07/31/2022 Office Visit Gastroenterology Tanner Hsu MD [address] [place], [place] [phone] Infl[facility] Start: 04-17-2022 End: 04-17-2022 Patient encounter procedure 04/17/2022 Office Visit Gastroenterology Tanner Hsu MD [address] [place], [place] [phone] Infl[facility] Start: 04-11-2022 End: 04-11-2022 Patient encounter procedure 04/11/2022 Appointment Magnetic Resonance Imaging Tanner Hsu MD [address] [place], [place] [phone] Imaging Outpatient Care [facility] Start: 04-06-2022 End: 04-06-2022 Patient encounter procedure [facility] Start: 03-09-2022 Influenza vaccination INFLUENZA VACCINE (#1) [facility] Start: 03-02-2022 End: 03-02-2022 Patient encounter procedure 03/02/2022 Appointment Magnetic Resonance Imaging Tanner Hsu MD [address] [phone] Imaging Outpatient Care [facility] Start: 02-06-2022 Influenza vaccination Flu vaccine (#1) [facility] Start: 01-20-2022 End: 01-20-2023 MRI of abdomen MRI ENTEROGRAPHY Imaging Routine Chronic diarrhea Abdominal pain, unspecified abdominal location Expected: 01/20/2022, Expires: 01/20/2023 [facility] Comment on above: Expected: 01/20/2022, Expires: Start: 03-09-2021 Influenza vaccination Flu vaccine (Season Ended) [facility] Work Phone: Start: 11-01-2020 End: 11-01-2020 Patient encounter procedure 11/01/2020 Appointment Physical Therapy Jesus Lion PTA [facility] Start: 10-29-2020 End: 10-29-2020 Appointment 10/29/2020 Appointment Physical Therapy Ele Colón [facility] Start: 10-26-2020 End: 10-26-2020 Appointment 10/26/2020 Appointment Physical Therapy Jesus Lion PTA [facility] Start: 10-25-2020 End: 10-25-2020 Appointment 10/25/2020 Appointment Physical Therapy Jesus Lion PTA [facility] Start: 10-21-2020 Hospital Encounter 10/21/2020 Hospital Encounter Physical Therapy Monisha Ramirez [facility] Start: 10-14-2020 End: 10-14-2020 Appointment 10/14/2020 Appointment Physical Therapy Concepcion Farr, PT [address] [place] [address] [phone] [facility] Start: 10-11-2020 End: 10-11-2020 Appointment 10/11/2020 Appointment Physical Therapy Carissa Armando PTA [facility] Start: 10-08-2020 End: 10-08-2020 Appointment 10/08/2020 Appointment Physical Therapy Carissa Armando PTA [facility] Start: 10-07-2020 End: 10-07-2020 Appointment 10/07/2020 Appointment Physical Therapy Jesus Lion PTA [facility] Start: 10-05-2020 End: 10-05-2020 Appointment 10/05/2020 Appointment Physical Therapy Concepcion Farr, PT [address] [place] [address] [phone] [facility] Start: 10-01-2020 End: 10-01-2020 Appointment 10/01/2020 Appointment Physical Therapy Jesus Lion PTA [facility] Start: 09-29-2020 End: 09-29-2020 Appointment 09/29/2020 Appointment Physical Therapy Jesus Lion PTA [facility] Start: 09-28-2020 End: 09-28-2020 Appointment 09/28/2020 Appointment Physical Therapy Carissa Armando PTA [facility] Start: 09-24-2020 End: 09-24-2020 Appointment 09/24/2020 Appointment Physical Therapy Jesus Lion PTA [facility] Start: 09-20-2020 End: 09-20-2020 Appointment 09/20/2020 Appointment Physical Therapy Ele Colón [facility] Start: 09-17-2020 End: 09-17-2020 Appointment [facility] Start: 09-15-2020 End: 09-15-2020 Appointment 09/15/2020 Appointment Physical Therapy Ele Colón [facility] Start: 09-13-2020 End: 09-13-2020 Appointment 09/13/2020 Appointment Physical Therapy Ele Colón [facility] Start: 09-10-2020 End: 09-10-2020 Appointment 09/10/2020 Appointment Physical Therapy Concepcion Farr, PT [address] [place] [address] [phone] [facility] Start: 2020 Fasting lipid profile LIPID SCREENING [facility] Start: 2020 Lipid panel [facility] Start: 2020 Screening for malignant neoplasm of breast [facility] Start: 2020 Screening mammography MAMMOGRAM SCREENING DISCUSSION [facility] Start: 03-09-2020 Influenza vaccination Flu vaccine (#1) [employer] Phone: Start: 2010 Screening for malignant neoplasm of cervix [facility] Start: 2001 Screening for malignant neoplasm of cervix [facility] Start: 1999 DTaP/Tdap/Td vaccine (1 - Tdap) DTaP/Tdap/Td vaccine (1 - Tdap) [facility] Start: 1999 Third diphtheria, tetanus and acellular pertussis (DTaP) vaccination TDAP (ADULT) [facility] Start: 1998 Hepatitis C screening [facility] Start: 1998 Tetanus vaccination TETANUS [facility] Start: 1996 COVID-19 Vaccine (1) COVID-19 Vaccine (1) [employer] Phone: Start: 1995 HIV screening [facility] Start: 1992 COVID-19 Vaccine (1) COVID-19 Vaccine (1) [employer] Phone: Start: 1992 Depression Screen [facility] Start: 1992 Depression screening using PHQ-9 (Patient Health Questionnaire 9) score Depression Screening (PHQ-2/9) [facility] Start: 1986 Pneumococcal 0-64 years Vaccine (1 - PCV) Pneumococcal 0-64 years Vaccine (1 - PCV) [facility] Start: 1986 PNEUMOCOCCAL VACCINE SERIES (1 - PCV) PNEUMOCOCCAL VACCINE SERIES (1 - PCV) [facility] Start: 1986 Pneumococcal Vaccine: Ped or At-Risk (1 - PCV) Pneumococcal Vaccine: Ped or At-Risk (1 - PCV) [facility] Start: 1983 History and physical examination, annual for health maintenance Wellness Visit [facility] Start: 1981 Varicella vaccine (1 of 2 - 2-dose childhood series) Varicella vaccine (1 of 2 - 2-dose childhood series) [facility] Start: 01-23-1981 COVID-19 VACCINE (#1) COVID-19 VACCINE (#1) [facility] Start: 1980 Hepatitis B vaccination HEP B VACCINE (1 of 3 - 3-dose series) [facility] Start: 1980 Hepatitis C antibody, confirmatory test HEPATITIS C VIRUS SCREENING [facility] Start: 1980 Hepatitis C screening [facility] Start: 1980 Tetanus vaccination [facility] Anal sphincter manometry ANORECTAL MANOMETRY GI/Bronch Routine Functional diarrhea Ordered: 07/31/2022 [facility] Comment on above: Ordered: 07/31/2022 End: 07-21-2024 Application of splint Splint application Procedures Routine Effusion of left elbow 1 Occurrences starting 07/21/2023 until 07/21/2024 [facility] Work Phone: Comment on above: 1 Occurrences starting 07/21/2023 until 07/21/2024 Hydrogen breath test HYDROGEN (H 2) BREATH TEST GI/Bronch Routine Functional diarrhea Abdominal pain, unspecified abdominal location Ordered: 07/31/2022 [facility] Comment on above: Ordered: 07/31/2022 MRI of abdomen MRI ENTEROGRAPHY Imaging Routine Chronic diarrhea Abdominal pain, unspecified abdominal location 04/11/2022 2:39 PM EDT [facility] SURG PATH REQUEST [facility] Comment on above: Release Upon Ordering for 1 Occurrences starting 05/17/2022, 1 completed XR Shoulder - left 2 Views XR Shoulder Left 2+ Views (Standard) Imaging NATALIE Effusion of left elbow 07/21/2023 3:25 PM EST [facility] Payers Date Payer Category Payer Medicaid [employer] [place] [id number] 2023-Present [address] [place] [address] [id number] 2023 Medicaid (Managed Care) [facility] MEDICAID [id number] 2021 Unknown 2020 Unknown [id number] 1.2.840.656281.1.13.239.2. 7.3.705932.315 2018 Unknown GENERIC SELF-INS URED GENERIC SELF-INSURED [phone] 2018-Present [phone] 1.2.840.758658.1.13.239.2. 7.3.905958.315 2018 Unknown 1 [id number] [place] 1 [id number] [place] [id number] 2018-Present [phone] [address] [place] [address] [id number] 1.2.840.062800.1.13.239.2. 7.3.472536.315 1980 Unknown [id number] 2.16.840.1.494550.3.579.2. 647 1980 Unknown [id number] 2.16.840.1.985223.3.579.2. 647 1980 Unknown [id number] 2.16.840.1.026393.3.579.2. 647 1980 Unknown [id number] 2.16.840.1.906178.3.579.2. 593 1980 Unknown [id number] 2.16.840.1.664717.3.579.2. 593 1980 Unknown [id number] 2.16.840.1.779286.3.579.2. 593 1980 Unknown [id number] 2.16.840.1.115247.3.579.2. 593 1980 Unknown [id number] 2.16.840.1.544647.3.579.2. 593 1980 Unknown [id number] 2.16.840.1.298510.3.579.2. 593 1980 Unknown [id number] 2.16.840.1.307252.3.579.2. 593 1980 Unknown [id number] 2.16.840.1.401885.3.579.2. 594 1980 Unknown [id number] 2.16.840.1.444394.3.579.2. 594 1980 Unknown [id number] 2.16840.1.546224.3.579.2. 594 1980 Unknown [id number] 2.16840.1.947626.3.579.2. 594 1980 Unknown [id number] 2.16.840.1.835565.3.579.2. 594 1980 Unknown [id number] 2.16.840.1.992364.3.579.2. 594 1980 Unknown [id number] 2.16840.1.805365.3.579.2. 594 1980 Unknown [id number] 2.16.840.1.176611.3.579.2. 594 1980 Unknown [id number] 2.16.840.1.653567.3.579.2. 594 1980 Unknown [id number] 2.16.840.1.349676.3.579.2. 594 1980 Unknown [id number] 2.16.840.1.929480.3.579.2. 594 1980 Unknown [id number] 2.16.840.1.000430.3.579.2. 174 1980 Unknown [id number] 2.16.840.1.538711.3.579.2. 196 1980 Unknown [id number] 2.16.840.1.376748.3.579.2. 903 1980 Unknown [id number] 2.16.840.1.446148.3.579.2. 903 1980 Unknown [id number] 2.16.840.1.795242.3.579.2. 173 1980 Unknown [id number] 2.16.840.1.678742.3.579.2. 173 1980 Unknown [id number] 2.16.840.1.773688.3.579.2. 173 1980 Unknown [id number] 2.16.840.1.027053.3.579.2. 9 1980 Unknown [id number] 2.16.840.1.579796.3.579.2. 1259 1980 Unknown [id number] 2.16.840.1.996983.3.579.2. 9 1980 Unknown [id number] 2.16.840.1.937912.3.579.2. 9 1980 Unknown [id number] 2.16.840.1.368825.3.579.2. 9 1980 Unknown [id number] 2.16.840.1.618970.3.579.2. 1259 1959 Unknown [id number] 1959 Unknown [id number] Social History Date Type Detail Facility Tobacco smoking status DEIS Unknown if ever smoked [employer] Phone: Start: 1980 Sex Assigned At Not on file [facility] [facility] Phone: Start: 04-10-2022 End: 09-22-2022 Exposure to SARS-CoV-2 (event) Not sure [employer] Phone: Start: 11-28-2020 End: 08-01-2023 Tobacco smoking status NHIS Current every day smoker [facility] History of tobacco use Cigarette Smoker [facility] Start: 11-28-2020 End: 05-14-2024 Cigarettes smoked current (pack per day) - Reported [employer] Phone: Start: 11-28-2020 End: 07-21-2023 Tobacco use and exposure Never used [facility] Start: 01-20-2022 End: 12-27-2022 Alcohol intake Ex-drinker (finding) [facility] Start: 01-20-2022 History SDOH Alcohol Comment 11 years sober [facility] Start: 09-10-2022 End: 12-27-2022 History SDOH Alcohol Frequency 1 [facility] [employer] Phone: Start: 09-10-2022 End: 12-27-2022 History SDOH Alcohol Std Drinks 0 [facility] [employer] Phone: Start: 02-07-2024 End: 05-14-2024 Gender identity Not on file [facility] NEGATED: Highlighted rowStart: NINF History of tobacco use Passive smoker [facility] Clinical Notes 08-19-2021 to 07-18-2024 Telephone Encounter - Vandana Shah NP - 07/18/2024 8:03 AM ESTTelephone Encounter - Vandana Shah NP - 07/18/2024 8:03 AM Aki Justice MD - 05/14/2024 1:40 PM ESTAttachments Note Date & Type Note Facility 07-18-2024 Telephone encounter Note Sent. [facility] reviewed. [facility] 07-18-2024 Miscellaneous Notes Sent. [facility] reviewed. Patient called requesting refill of Tramadol to be sent to [facility]. documented in this encounter [facility] 07-17-2024 Telephone encounter Note Patient called requesting refill of Tramadol to be sent to [facility]. [facility] 05-14-2024 History of Present illness Narrative Images from the original note were not included. CHIEF COMPLAINT REASON FOR VISIT: neckpain, migraines, HPI: Fran Hernandez is a 43 y.o. female who presents for a follow up. She states her headaches are better with the Nurtec. She states it works great for her and takes away her nausea. She states the robaxin does not seem to be doing much, She states her neck seems to bother her a lot on a daily basis. Admits to stiffness/tightness. She states she has been falling a lot and that is her biggest concern. She states she will not get any indication and will jsut go down. 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 She states this was the first time she felt off in the head. She states she takes blood pressure medication. She states she goes down and comes right back to. She states she is on midodrine and states it was at 10 mg three times a day but she has been only able to take it once a day. She states the stiffer she gets the harder it gets to walk and to walk up stairs, etc. She states she has a lot of back pain and burning in her back. CURRENT MEDICATIONS: ALLERGIES/DISCONTINUE MEDICATIONS Current Outpatient Medications Medication Instructions cetirizine (ZYRTEC) 10 mg, Oral, Daily Cholecalciferol (VIT D3) 10 mcg, Oral, Daily diphenoxylate-atropine (Lomotil) 2.5-0.025 MG tablet 1 tablet, Oral, 4 times daily PRN EPINEPHrine (Epipen) 0.3 MG/0.3ML injection syringe 1 Syringe, Once fluticasone (Flonase) 50 MCG/ACT nasal spray instill 1-2 sprays IN EACH NOSTRIL DAILY *shake gently, BEFORE first use-prime pump, clean tip after use* hyoscyamine (Anaspaz,Levsin) 0.125 MG tablet TAKE 1 TABLET BY MOUTH EVERY 4 HOURS NEEDED *MUST LAST 30 DAYS* methocarbamol (ROBAXIN) 500 mg, Oral, 2 times daily midodrine (PROAMATINE) 10 mg, Oral, 3 times daily olopatadine (Patanol) 0.1 % ophthalmic solution 1 drop, 2 times daily omeprazole (PRILOSEC) 40 mg, Oral, 2 times daily ondansetron ODT (Zofran-ODT) 4 MG disintegrating tablet DISSOLVE 1 (ONE) TABLET ON THE TONGUE EVERY 6 HOURS NEEDED potassium chloride CR (Klor-Con M20) 20 MEQ ER tablet 20 mEq, Oral, Daily, Do not crush or chew. pramipexole (MIRAPEX) 0.25 mg, Oral, Nightly predniSONE (Deltasone) 10 MG tablet 6 PO daily x 3 days, 4 PO daily x 3 days, 2 PO daily x 3 days, 1 PO daily x 3 days Refresh Optive Advanced 0.5-1-0.5 % solution 1 drop, 3 times daily PRN tacrolimus (Protopic) 0.1 % ointment APPLY TO THE AFFECTED AREA(S) topically TWICE DAILY terbinafine (LAMISIL) 250 mg, Oral, Daily venlafaxine XR (Effexor XR) 75 MG 24 hr capsule TAKE 1 CAPSULE BY MOUTH DAILY * DO NOT CRUSH OR CHEW * Allergies Allergen Reactions Tomato Anaphylaxis and Unknown Other Reaction(s): Other (See Comments) Amoxicillin GI intolerance Nausea and vomiting Latex Rash There are no discontinued medications. PAST MEDICAL HISTORY: SURGICAL/SOCIAL/FAMILY HISTORY DEPRESSION SCREEN: Past Medical History: Diagnosis Date At low risk for fall Chronic superficial gastritis without bleeding Drug-induced acute pancreatitis without infection or necrosis Encounter for long-term (current) use of medications RODNEY (generalized anxiety disorder) (CMS/HCC) GERD without esophagitis Interstitial cystitis Irritable bowel syndrome with diarrhea Menorrhagia with regular cycle Neurocardiogenic syncope Nummular eczema Onychomycosis of toenail Pain, joint, knee, left Palpitation PCB (post coital bleeding) Perimenopausal menorrhagia RLS (restless legs syndrome) Single major depressive episode, moderate (HCC) (CMS/HCC) Thoracic spine pain Tobacco user Varicose veins with pain Vitamin D deficiency Past Surgical History: Procedure Laterality Date CHEST TUBE INSERTION Pneumothorax CHOLECYSTECTOMY DILATION AND CURETTAGE OF UTERUS 09/2014 and Hysteroscopy HERNIA REPAIR Umbilical HYSTERECTOMY 10/13/2016 OVARIAN CYST REMOVAL 03/2014 and right fallopian tube removal Social History Tobacco Use Smoking status: Every Day Types: Cigarettes Family History Problem Relation Name Age of Onset Hyperlipidemia Mother Hypertension Mother Diabetes Mother Other (Other) Mother Varicose Veins Other (Other) Father Respiratory problems Stroke Father Irritable bowel syndrome Father Seizures Father Osteoporosis Father Depression: Not on file REVIEW OF SYMPTOMS: Review of Systems Constitutional: Negative for chills, diaphoresis, fatigue and fever. HENT: Negative for ear pain, tinnitus and trouble swallowing. Eyes: Negative for photophobia and visual disturbance. Respiratory: Negative for cough and shortness of breath. Cardiovascular: Negative for palpitations and leg swelling. Gastrointestinal: Negative for abdominal pain and nausea. Genitourinary: Negative for difficulty urinating and urgency. Musculoskeletal: Positive for back pain, gait problem, neck pain and neck stiffness. Negative for arthralgias and myalgias. Neurological: Positive for weakness and headaches. Negative for tremors, light-headedness and numbness. Psychiatric/Behavioral: Positive for sleep disturbance. Negative for agitation, confusion and suicidal ideas. OBJECTIVE: 02/07/2024 10:12 AM 09/20/2023 10:36 AM 05/23/2023 10:50 AM Vitals BMI 23.29 kg/m2 21.48 kg/m2 22.33 kg/m2 BSA (m2) 1.95 m2 1.87 m2 1.81 m2 Systolic 100 112 Diastolic 60 86 Heart Rate 88 91 SpO2 98 % Temp 97.3 F 96.4 F Height (in) 5' 11 5' 11 5' 8.5 Weight (lb) 167 154 149 Visit Report Report Report EXAM: Neurological Exam Mental Status Awake, alert and oriented to person, place and time. Oriented to person, place and time. Recent and remote memory are intact. Speech is normal. Language is fluent with no aphasia. Attention and concentration are normal. Cranial Nerves CN II: Visual acuity is normal. Visual triana full to confrontation. CN III, IV, : Extraocular movements intact bilaterally. Normal lids and orbits bilaterally. Pupils equal round and reactive to light bilaterally. CN V: Facial sensation is normal. CN VII: Full and symmetric facial movement. CN VIII: Hearing is normal. CN XII: Tongue midline without atrophy or fasciculations. Motor Normal muscle bulk throughout. Normal muscle tone. Right Left Wrist flexion 5 5 Wrist extension 5 5 Right Left Deltoid 5 5 Biceps 5 5 Triceps 5 5 Wrist flexor 5 5 Wrist extensor 5 5 Glutei 5 5 Iliopsoas 5 5 Quadriceps 5 5 Gastrocnemius 5 5 Anterior tibialis 5 5 Posterior tibialis 5 5 Sensory Light touch is normal in upper and lower extremities. Pinprick is normal in upper and lower extremities. Vibration is normal in upper and lower extremities. Reflexes Right Left Brachioradialis 2+ 2+ Biceps 2+ 2+ Patellar 2+ 2+ Achilles 2+ 2+ Right Plantar: downgoing Left Plantar: downgoing Right pathological reflexes: Laure's absent. Ankle clonus absent. Left pathological reflexes: Laure's absent. Ankle clonus absent. Coordination Rjnhzy-vv-myun, rapid alternating movements and iuth-dw-mooh normal bilaterally without dysmetria. Gait Normal casual, toe, heel and tandem gait. Romberg is absent. PROCEDURE: NONE ASSESSMENT AND PLAN: Diagnoses and all orders for this visit: Cervical radiculopathy I will send in for tens unit to [facility]. She suffers from chronic cervical radiculopathy, characterized by severe and persistent neck pain radiating to the upper/lower extremities. This condition has significantly impaired their daily functioning and quality of life. Despite exhaustive conventional treatments, including physical therapy, pharmacological interventions, and lifestyle modifications, continues to experience debilitating pain.I recommend a TENS unit as a part of the comprehensive pain management plan. The use of a TENS unit has been shown to effectively alleviate pain in patients with chronic cervical radiculopathy by delivering low-voltage electrical currents to the affected area, which can help in blocking pain signals to the brain and promoting the release of endorphins. She has undergone extensive conservative treatments with limited success. The severity and persistence of the pain have necessitated the exploration of alternative therapies. This can allow her participate more actively in daily activities and physical therapy, thereby improving their overall quality of life. Cervical dystonia Does not want to do Botox does not like injections. She did physical therapy in the past and was ineffective. Migraine without aura and without status migrainosus, not intractable (CMS/HCC) Continue with Nurtec as needed. Samples provided. Neurocardiogenic syncope Take 1-midodrine 10 mg-take half in Morning and half in afternoon. Follow up 3 months. documented in this encounter [facility] 03-17-2024 Telephone encounter Note Patient calls and reports Nurtec works wonderful to relieve her migraines. She needs prescription of this. FREDERIC Abdi. [facility] 03-17-2024 Miscellaneous Notes Patient calls and reports Nurtec works wonderful to relieve her migraines. She needs prescription of this. FREDERIC Abdi. documented in this encounter [facility] 07-21-2023 Instructions Laetha Hawkins PA-C - 07/21/2023 3:42 PM EST Please call your patient account specialist you are established with in [facility] on Sunday after the holiday for close schedule up for your left elbow fracture. You have been provided your x-rays on a disc. There is concern for nondisplaced fracture at your distal humerus, part of your elbow joint. You also have findings on your x-rays to suggest a joint effusion, fluid and swelling at the joint. Please keep your splint in place, wear the sling for comfort. You can apply ice packs through your splint, 20 minutes on, 20 minutes off and elevate your left arm on pillows at or above the level of your heart if possible.. Keep the splint clean and dry. Please continue all of your regularly prescribed medications as directed by your primary care doctor specialist. Take your newly prescribed medication as directed. Take them with food and water. Do not take pain medication while working or driving. You may also take [id number] pain relievers as needed. Please be aware of the amount of Tylenol you are taking daily. Do not exceed 4000 mg per 24-hour. Go to the emergency dept for new or worsening symptoms, including but not limited to: numbness or weakness in your left hand, any worsened pain at home, change in color or duskiness of your fingers. Thank you for choosing [facility]. It has been a pleasure caring for you. Please consider filling out the survey that will be sent to you after this visit. This helps us understand what we are doing well and what we can do better. The following attachments cannot be sent through Care Everywhere.Elbow Fracture (Azerbaijani)documented in this encounter [facility] 07-21-2023 History of Present illness Narrative Associated Order(s): Splint Application Post-Procedure Diagnose(s): Left elbow fracture, closed, initial encounter Images from the original note were not included. Patient Name: [facility] Location: Fran Hernandez [address] [place] [address] [address] [place] [address] Date Of : Date Of Visit: 1980 07/21/2023 MRN# Provider: [id number] Leatha Hawkins PA-C Chief Complaint Patient presents with Injury Fell and injured left elbow around noon today Assessment & Plan 1. Effusion of left elbow XR Elbow Left 3+ Views (Standard) XR Shoulder Left 2+ Views (Standard) XR Shoulder Left 2+ Views (Standard) XR Elbow Left 3+ Views (Standard) Splint application Arm sling 2. Left elbow fracture, closed, initial encounter HYDROcodone-acetaminophen (NORCO) 5-325 mg per tablet Splint Application No follow-ups on file. Medical Decision Making Patient describes a mechanical fall from ground level landing on her left elbow. X-rays obtained. I reviewed 3 views of the left shoulder. I did not appreciate acute fracture or dislocation. Patient discharged pending radiology over read of shoulder films. I did not appreciate acute dislocation of the left elbow. I did not appreciate a radial head fracture. She does have a posterior fat pad sign. Radiologist notes small elbow joint effusion and longitudinal lucency in the distal humerus anteriorly noted. This could represent a nondisplaced fracture. There is no other acute appearing fracture or dislocation. The radial head is within normal limits. [facility] report reviewed. I prescribed 3-day course of pain medication as needed for pain. I have recommended ice packs and elevating the left arm. She is to keep the posterior splint in place. She can wear her sling for comfort. Patient is provided x-rays on a disc. She lives in [facility]. [facility] but patient is established with an orthopedist in [facility]. I recommended she contact this provider on Sunday morning after the holiday for close follow-up. Additional Clinical Comments Discussed over the counter medications for symptomatic management and side effects of medications. Recommended taking all medications with food and to stop medications if they develop any signs of an allergic reaction. Educated patient and/or guardian about signs and symptoms that would warrant further immediate evaluation. Recommended that they should return to urgent care, make an appointment with their family physician, or go to the emergency room if symptoms persist or get acutely worse. Recommended follow up within the next week with their PCP or to get established with a PCP soon in order to follow up appropriately. X-ray Documentation: I have personally reviewed the images. My impression is no acute fracture or dislocation. Radiology over-read pending. Subjective 42 y.o. female presents with Injury (Fell and injured left elbow around noon today ) This patient is a 42-year-old female presenting for evaluation after a slip and fall landing on her left elbow. She slipped in a parking lot she states on black ice. She states she initially landed on the inside of her left elbow and then her full weight came down on the elbow. Pain radiates into her shoulder. She states she landed on her butt. She notes pain in her tailbone but states it is minimal compared to the pain in her left elbow. Denies head or neck trauma. Injury Review Of Systems Review of Systems Constitutional: Negative for chills and fever. Skin: Negative for wound. Allergic/Immunologic: Negative for immunocompromised state. Hematological: Does not bruise/bleed easily. Medical History History reviewed. No pertinent past medical history. History reviewed. No pertinent surgical history. There is no problem list on file for this patient. Social History Social History Tobacco Use Smoking status: Every Day Types: Cigarettes Passive exposure: Never Smokeless tobacco: Never Family History History reviewed. No pertinent family history. Objective Physical Exam BP 118/83 Pulse 88 Temp 97.4 F (36.3 C) Resp 14 Ht 5' 11 Wt 66.2 kg (146 lb) SpO2 97% BMI 20.36 kg/m Vision/Hearing Exam:No results found. Physical Exam Vitals and nursing note reviewed. Constitutional: General: She is not in acute distress. Appearance: Normal appearance. She is not ill-appearing. HENT: Head: Normocephalic and atraumatic. Right Ear: External ear normal. Left Ear: External ear normal. Nose: Nose normal. Mouth/Throat: Mouth: Mucous membranes are moist. Eyes: General: No scleral icterus. Right eye: No discharge. Left eye: No discharge. Extraocular Movements: Extraocular movements intact. Conjunctiva/sclera: Conjunctivae normal. Cardiovascular: Rate and Rhythm: Normal rate. Pulmonary: Effort: Pulmonary effort is normal. No respiratory distress. Abdominal: General: Abdomen is flat. There is no distension. Musculoskeletal: General: No swelling or deformity. Normal range of motion. Cervical back: Normal range of motion. Comments: No midline spinal tenderness. Clavicles symmetric. Shoulders are symmetric. Patient will not abduct the left shoulder. Diffuse tenderness to her upper arm and elbow, greatest at the medial epicondyle. Patient will not pronate or supinate. Left radial pulse palpable. Fingers are warm. Sensation intact. Holding her left arm at 90 degree angle at elbow. Skin: General: Skin is dry. Coloration: Skin is not jaundiced. Neurological: Mental Status: She is alert and oriented to person, place, and time. Mental status is at baseline. Coordination: Coordination normal. Gait: Gait normal. Psychiatric: Mood and Affect: Mood normal. Behavior: Behavior normal. Thought Content: Thought content normal. Judgment: Judgment normal. Procedure Notes Splint Application Date/Time: 07/21/2023 3:48 PM Performed by: Leatha Hawkins PA-C Authorized by: Leatha Hawkins PA-C Location details: left arm Splint type: long arm Supplies used: Ortho-Glass Post-procedure: The splinted body part was neurovascularly unchanged following the procedure. Patient tolerance: patient tolerated the procedure well with no immediate complications Results No results found for this or any previous visit (from the past 168 hour(s)). XR Shoulder Left 2+ Views (Standard) Preliminary Result 1. Normal alignment. 2. No acute osseous injury. EMAR/christin Workstation ID: [id number] XR Elbow Left 3+ Views (Standard) Final Result Orders Placed This Visit Orders Placed This Encounter Procedures Splint application Splint Application Arm sling XR Elbow Left 3+ Views (Standard) XR Shoulder Left 2+ Views (Standard) Medication List At End Of Visit Current Outpatient Medications Medication Sig Dispense Refill buPROPion (WELLBUTRIN SR) 150 MG 12 hr tablet TAKE 1 TABLET BY MOUTH DAILY FOR 3 DAYS then TAKE 1 TABLET BY MOUTH TWICE DAILY cholecalciferol, vitamin D3, 400 unit Tab Take 1 (one) tablet (400 Units total) by mouth daily . dexlansoprazole (DEXILANT) 60 mg capsule Take 1 (one) capsule (60 mg total) by mouth daily . diphenoxylate-atropine (LOMOTIL) 2.5-0.025 mg per tablet Take 1 (one) tablet by mouth 4 (four) times a day as needed . eluxadoline 75 mg Tab Take 1 (one) tablet (75 mg total) by mouth 2 (two) times a day . hyoscyamine (LEVSIN) 0.125 mg tablet hyoscyamine sulfate 0.125 mg tablet midodrine (PROAMATINE) 10 MG tablet Take 1 (one) tablet (10 mg total) by mouth 3 (three) times a day . midodrine (PROAMATINE) 2.5 MG tablet Take 1 (one) tablet (2.5 mg total) by mouth once . olopatadine (PATANOL) 0.1 % ophthalmic solution administer 1 drop into both eyes in the morning and before bedtime for 5 (FIVE) days ondansetron (ZOFRAN-ODT) 4 MG disintegrating tablet pramipexole (MIRAPEX) 0.125 MG tablet tacrolimus (PROTOPIC) 0.1 % ointment terbinafine HCL (LAMISIL) 250 mg tablet Take 1 (one) tablet (250 mg total) by mouth daily . HYDROcodone-acetaminophen (NORCO) 5-325 mg per tablet Take 1 (one) tablet by mouth every 4 (four) hours as needed for pain (Days supply per fill: 3) Do not take while working or driving. . 18 tablet 0 No current facility-administered medications for this visit. Patient Instructions Please call your patient account specialist you are established with in [facility] on Sunday morning after the holiday for close schedule up for your left elbow fracture. You have been provided your x-rays on a disc. There is concern for nondisplaced fracture at your distal humerus, part of your elbow joint. You also have findings on your x-rays to suggest a joint effusion, fluid and swelling at the joint. Please keep your splint in place, wear the sling for comfort. You can apply ice packs through your splint, 20 minutes on, 20 minutes off and elevate your left arm on pillows at or above the level of your heart if possible.. Keep the splint clean and dry. Please continue all of your regularly prescribed medications as directed by your primary care doctor specialist. Take your newly prescribed medication as directed. Take them with food and water. Do not take pain medication while working or driving. You may also take [id number] pain relievers as needed. Please be aware of the amount of Tylenol you are taking daily. Do not exceed 4000 mg per 24-hour. Go to the emergency dept for new or worsening symptoms, including but not limited to: numbness or weakness in your left hand, any worsened pain at home, change in color or duskiness of your fingers. Thank you for choosing [facility]. It has been a pleasure caring for you. Please consider filling out the survey that will be sent to you after this visit. This helps us understand what we are doing well and what we can do better. documented in this encounter [facility] 07-21-2023 History of Present illness Narrative Associated Order(s): Splint Application Post-Procedure Diagnose(s): Left elbow fracture, closed, initial encounter Images from the original note were not included. Patient Name: [facility] Location: Fran Hernandez [address] [place] [address] [address] [place] [address] Date Of : Date Of Visit: 1980 07/21/2023 MRN# Provider: [id number] Leatha Hawkins PA-C Chief Complaint Patient presents with Injury Fell and injured left elbow around noon today Assessment & Plan 1. Effusion of left elbow XR Elbow Left 3+ Views (Standard) XR Shoulder Left 2+ Views (Standard) XR Shoulder Left 2+ Views (Standard) XR Elbow Left 3+ Views (Standard) Splint application Arm sling 2. Left elbow fracture, closed, initial encounter HYDROcodone-acetaminophen (NORCO) 5-325 mg per tablet Splint Application No follow-ups on file. Medical Decision Making Patient describes a mechanical fall from ground level landing on her left elbow. X-rays obtained. I reviewed 3 views of the left shoulder. I did not appreciate acute fracture or dislocation. Patient discharged pending radiology over read of shoulder films. I did not appreciate acute dislocation of the left elbow. I did not appreciate a radial head fracture. She does have a posterior fat pad sign. Radiologist notes small elbow joint effusion and longitudinal lucency in the distal humerus anteriorly noted. This could represent a nondisplaced fracture. There is no other acute appearing fracture or dislocation. The radial head is within normal limits. OARRS report reviewed. I prescribed 3-day course of pain medication as needed for pain. I have recommended ice packs and elevating the left arm. She is to keep the posterior splint in place. She can wear her sling for comfort. Patient is provided x-rays on a disc. She lives in [facility]. I did offer to place an [facility] referral if needed but patient is established with an orthopedist in [facility]. I recommended she contact this provider on Sunday morning after the holiday for close follow-up. Additional Clinical Comments Discussed over the counter medications for symptomatic management and side effects of medications. Recommended taking all medications with food and to stop medications if they develop any signs of an allergic reaction. Educated patient and/or guardian about signs and symptoms that would warrant further immediate evaluation. Recommended that they should return to urgent care, make an appointment with their family physician, or go to the emergency room if symptoms persist or get acutely worse. Recommended follow up within the next week with their PCP or to get established with a PCP soon in order to follow up appropriately. X-ray Documentation: I have personally reviewed the images. My impression is no acute fracture or dislocation. Radiology over-read pending. Subjective 42 y.o. female presents with Injury (Fell and injured left elbow around noon today ) This patient is a 42-year-old female presenting for evaluation after a slip and fall landing on her left elbow. She slipped in a parking lot she states on black ice. She states she initially landed on the inside of her left elbow and then her full weight came down on the elbow. Pain radiates into her shoulder. She states she landed on her butt. She notes pain in her tailbone but states it is minimal compared to the pain in her left elbow. Denies head or neck trauma. Injury Review Of Systems Review of Systems Constitutional: Negative for chills and fever. Skin: Negative for wound. Allergic/Immunologic: Negative for immunocompromised state. Hematological: Does not bruise/bleed easily. Medical History History reviewed. No pertinent past medical history. History reviewed. No pertinent surgical history. There is no problem list on file for this patient. Social History Social History Tobacco Use Smoking status: Every Day Types: Cigarettes Passive exposure: Never Smokeless tobacco: Never Family History History reviewed. No pertinent family history. Objective Physical Exam BP 118/83 Pulse 88 Temp 97.4 F (36.3 C) Resp 14 Ht 5' 11 Wt 66.2 kg (146 lb) SpO2 97% BMI 20.36 kg/m Vision/Hearing Exam:No results found. Physical Exam Vitals and nursing note reviewed. Constitutional: General: She is not in acute distress. Appearance: Normal appearance. She is not ill-appearing. HENT: Head: Normocephalic and atraumatic. Right Ear: External ear normal. Left Ear: External ear normal. Nose: Nose normal. Mouth/Throat: Mouth: Mucous membranes are moist. Eyes: General: No scleral icterus. Right eye: No discharge. Left eye: No discharge. Extraocular Movements: Extraocular movements intact. Conjunctiva/sclera: Conjunctivae normal. Cardiovascular: Rate and Rhythm: Normal rate. Pulmonary: Effort: Pulmonary effort is normal. No respiratory distress. Abdominal: General: Abdomen is flat. There is no distension. Musculoskeletal: General: No swelling or deformity. Normal range of motion. Cervical back: Normal range of motion. Comments: No midline spinal tenderness. Clavicles symmetric. Shoulders are symmetric. Patient will not abduct the left shoulder. Diffuse tenderness to her upper arm and elbow, greatest at the medial epicondyle. Patient will not pronate or supinate. Left radial pulse palpable. Fingers are warm. Sensation intact. Holding her left arm at 90 degree angle at elbow. Skin: General: Skin is dry. Coloration: Skin is not jaundiced. Neurological: Mental Status: She is alert and oriented to person, place, and time. Mental status is at baseline. Coordination: Coordination normal. Gait: Gait normal. Psychiatric: Mood and Affect: Mood normal. Behavior: Behavior normal. Thought Content: Thought content normal. Judgment: Judgment normal. Procedure Notes Splint Application Date/Time: 07/21/2023 3:48 PM Performed by: Leatha Hawkins PA-C Authorized by: Leatha Hawkins PA-C Location details: left arm Splint type: long arm Supplies used: Ortho-Glass Post-procedure: The splinted body part was neurovascularly unchanged following the procedure. Patient tolerance: patient tolerated the procedure well with no immediate complications Results No results found for this or any previous visit (from the past 168 hour(s)). XR Shoulder Left 2+ Views (Standard) Preliminary Result 1. Normal alignment. 2. No acute osseous injury. EMAR/christin Workstation ID: [id number] XR Elbow Left 3+ Views (Standard) Final Result Orders Placed This Visit Orders Placed This Encounter Procedures Splint application Splint Application Arm sling XR Elbow Left 3+ Views (Standard) XR Shoulder Left 2+ Views (Standard) Medication List At End Of Visit Current Outpatient Medications Medication Sig Dispense Refill buPROPion (WELLBUTRIN SR) 150 MG 12 hr tablet TAKE 1 TABLET BY MOUTH DAILY FOR 3 DAYS then TAKE 1 TABLET BY MOUTH TWICE DAILY cholecalciferol, vitamin D3, 400 unit Tab Take 1 (one) tablet (400 Units total) by mouth daily . dexlansoprazole (DEXILANT) 60 mg capsule Take 1 (one) capsule (60 mg total) by mouth daily . diphenoxylate-atropine (LOMOTIL) 2.5-0.025 mg per tablet Take 1 (one) tablet by mouth 4 (four) times a day as needed . eluxadoline 75 mg Tab Take 1 (one) tablet (75 mg total) by mouth 2 (two) times a day . hyoscyamine (LEVSIN) 0.125 mg tablet hyoscyamine sulfate 0.125 mg tablet midodrine (PROAMATINE) 10 MG tablet Take 1 (one) tablet (10 mg total) by mouth 3 (three) times a day . midodrine (PROAMATINE) 2.5 MG tablet Take 1 (one) tablet (2.5 mg total) by mouth once . olopatadine (PATANOL) 0.1 % ophthalmic solution administer 1 drop into both eyes in the morning and before bedtime for 5 (FIVE) days ondansetron (ZOFRAN-ODT) 4 MG disintegrating tablet pramipexole (MIRAPEX) 0.125 MG tablet tacrolimus (PROTOPIC) 0.1 % ointment terbinafine HCL (LAMISIL) 250 mg tablet Take 1 (one) tablet (250 mg total) by mouth daily . HYDROcodone-acetaminophen (NORCO) 5-325 mg per tablet Take 1 (one) tablet by mouth every 4 (four) hours as needed for pain (Days supply per fill: 3) Do not take while working or driving. . 18 tablet 0 No current facility-administered medications for this visit. Patient Instructions Please call your patient account specialist you are established with in [facility] on Sunday after the holiday for close schedule up for your left elbow fracture. You have been provided your x-rays on a disc. There is concern for nondisplaced fracture at your distal humerus, part of your elbow joint. You also have findings on your x-rays to suggest a joint effusion, fluid and swelling at the joint. Please keep your splint in place, wear the sling for comfort. You can apply ice packs through your splint, 20 minutes on, 20 minutes off and elevate your left arm on pillows at or above the level of your heart if possible.. Keep the splint clean and dry. Please continue all of your regularly prescribed medications as directed by your primary care doctor specialist. Take your newly prescribed medication as directed. Take them with food and water. Do not take pain medication while working or driving. You may also take [id number] pain relievers as needed. Please be aware of the amount of Tylenol you are taking daily. Do not exceed 4000 mg per 24-hour. Go to the emergency dept for new or worsening symptoms, including but not limited to: numbness or weakness in your left hand, any worsened pain at home, change in color or duskiness of your fingers. Thank you for choosing [facility]. It has been a pleasure caring for you. Please consider filling out the survey that will be sent to you after this visit. This helps us understand what we are doing well and what we can do better. documented in this encounter [facility] 12-27-2022 History of Present illness Narrative Ticket to ride completed. The following information was reported off: Name Allergies Orientation Level Destination Safety Issues Code Status Oxygen Requirements Special needs including mobility, language, communication documented in this encounter [facility] 11-06-2022 History of Present illness Narrative Division of Gastroenterology, Hepatology and Nutrition Reason for Visit: Follow-up; IBS Referring provider: Self, Self PCP: Honorio Vasquez HISTORY OF PRESENT ILLNESS Chief Complaint Patient presents with Follow-up Here today for a follow up I had the pleasure of meeting Fran Hernandez in the Gastroenterology Clinic at [facility] on 11/06/2022. She is a 42 y.o. female who was referred for further evaluation and treatment of: IBS. Last seen by ARELI Davison on 07/31/2022. EGD and colonoscopy in 05/2022 showed reactive changes in the colon and stomach, but no evidence of IBD. MRE in 04/2022 was unremarkable. Anorectal manometry and SIBO breath testing were ordered and not yet completed. She was continued on hyoscaymine and lomotil as needed. Today She reports feeling well. She says that since her last visit she has had bright red blood with bowel movements, She was seen in her local ED and she had hemorrhoids noted, she was told she has colitis based on CTAP results. She has a bowel movement 10-15 times daily and stools are watery. She has post-prandial urgency but denies nocturnal awakenings. She has intermittent nausea, this can sometimes be associated with RUQ abdominal pain. She says that RUQ is constant, can be worse at times, she is concerned about possible pancreatitis. She has rare vomiting. She has pyrosis and reflux that is present daily despite taking omeprazole 40 mg BID, this occurs more frequently on an empty stomach. She has also tried esomeprazole in the past for reflux symptoms which was also ineffective. She has frequent gas and bloating. She is taking lomotil daily, however symptoms seem to be refractory to this regimen. She is also taking levsin for pain which isn't especially effective. She has a good appetite and weight has been stable. She has also tried probiotics for 2 months without improvement in symptoms. She denies chest pain, dysphagia, early satiety, belching, fecal incontinence, constipation, weight loss, fatigue, fever, rash, shortness of breath, night sweats, cough, low back pain, joint pain, depression and perianal drainage Pertinent GI family history reviewed as follows: Family history of colorectal cancer: none Family history of other GI cancers (esophagus, stomach, pancreas, small intestine, liver): none PAST MEDICAL, SURGICAL, SOCIAL AND FAMILY HISTORY PMH: Past Medical History: Diagnosis Date Arthritis 2020 Colitis IBS (irritable bowel syndrome) Low blood pressure Ovarian cancer PSH: Past Surgical History: Procedure Laterality Date CHOLECYSTECTOMY HERNIA REPAIR HYSTERECTOMY Social History: She reports that she has been smoking. She has never used smokeless tobacco. She reports that she does not currently use alcohol. She reports that she does not use drugs. Family History: Her family history includes GI Disease in her father and mother; Heart Failure in her maternal uncle; Prostate Cancer in her maternal uncle. Allergies: She is allergic to amoxicillin. Medications: Current Outpatient Medications Medication Sig benzonatate 200 MG capsule TAKE 1 CAPSULE BY MOUTH THREE TIMES DAILY NEEDED buPROPion 150 MG tablet SR TAKE 1 TABLET BY MOUTH DAILY FOR 3 DAYS then TAKE 1 TABLET BY MOUTH TWICE DAILY cholecalciferol 10 MCG (400 UNIT) tablet Take 1 tablet by mouth daily. diphenoxylate-atropine 2.5-0.025 MG tablet EC/DR diphenoxylate-atropine 2.5 mg-0.025 mg tablet Eluxadoline 75 MG tablet Take 1 tablet by mouth Twice daily. hyoscyamine 0.125 MG tablet hyoscyamine sulfate 0.125 mg tablet midodrine 2.5 MG tablet Take 1 tablet by mouth. nicotine 21 MG/24HR Patch 24 HR patch APPLY 1 (ONE) patch to the skin DAILY ondansetron 4 MG tablet Take 1 tablet by mouth Every 8 hours as needed. Dexlansoprazole [address] Take 1 capsule by mouth daily. rifAXIMin 550 MG tablet Take 1 tablet by mouth 3 (three) times a day for 14 days. Pertinent labs, imaging, and endoscopies were reviewed. PMHX, PSHX, FHX, and SHX reviewed and updated as necessary in IHIS. REVIEW OF SYSTEMS General: denies chills, fatigue or fever Psychological: denies anxiety or depression ENT: denies epistaxis or headaches Allergy and Immunology: denies hives or nasal congestion Hematological and Lymphatic: denies bleeding problems, blood clots or bruising Endocrine: denies palpitations, polydipsia/polyuria, skin changes or temperature intolerance Respiratory: denies cough, shortness of breath, or wheezing Cardiovascular: denies chest pain or dyspnea on exertion Gastrointestinal: see HPI Musculoskeletal: denies gait disturbance, joint stiffness, joint swelling or muscle pain Neurological: denies TIA or stroke symptoms Dermatological: denies hair changes, lumps or rash PHYSICAL EXAM: Wt Readings from Last 3 Encounters: 11/06/22 66.2 kg (146 lb) 07/31/22 65.6 kg (144 lb 9.6 oz) 04/17/22 63.9 kg (140 lb 12.8 oz) Blood pressure 104/62, pulse 72, resp. rate 16, height 1.803 m (5' 11 ), weight 66.2 kg (146 lb), SpO2 98 %. Body mass index is 20.36 kg/m . General: Well developed, well nourished, in no acute distress. Eyes: Sclera white, conjunctiva pink ENMT: Nasal mucosa pink, septum midline.Oral mucosa moist without lesions, pharynx without exudates. Trachea midline. Neck supple. Lymph: No submandibular or supraclavicular lymphadeonpathy Cardiovascular: Regular rate and rhythm, no murmurs Respiratory: Clear to auscultation bilaterally. No rales, wheezes or rhonchi. Good inspiratory effort. Gastrointestinal: Active bowel sounds, soft. TTP throughout the entire abdomen with negative Carnett's sign. No distention, rigidity, guarding, or rebound tenderness. No masses or hepatosplenomegaly. Musculoskeletal: Full range of motion in all joints. No evidence of swelling or deformity. Integumentary: No rashes or jaundice. Neurologic: Cranial nerves grossly intact. Psych: Normal mood and affect. LABS Lab Results Component Value Date WBC 7.66 01/20/2022 HGB 15.1 01/20/2022 HCT 44.0 01/20/2022 PLATELET 161 01/20/2022 MCV 95.0 01/20/2022 Lab Results Component Value Date SODIUM 140 01/20/2022 POTASSIUM 4.1 01/20/2022 CHLORIDE 103 01/20/2022 CO2 28 01/20/2022 BUN 12 01/20/2022 CREATSERUM 0.98 01/20/2022 Lab Results Component Value Date ALT 12 01/20/2022 AST 18 01/20/2022 ALKPHOS 81 01/20/2022 BILITOTAL 0.4 01/20/2022 BILIDIRECT 0.1 01/20/2022 No results found for: SEDRATE Lab Results Component Value Date CRP 0.37 01/20/2022 Lab Results Component Value Date TSH 1.991 01/20/2022 No results found for: LIPASE Imaging and Procedures: 2018 CT IMPRESSION: 1. No evidence of appendicitis. 2. Prominent hepatic veins, mesenteric veins, and IVC, significance is undetermined but this could be a normal variant. 3. Mild hepatomegaly and periportal edema. Colonoscopy 2016 Findings: The perianal and digital rectal examinations were normal. The colon (entire examined portion) appeared normal. Impression: - The entire examined colon is normal. - No specimens collected. [facility] Patient Name: Fran Hernandez Procedure: Upper GI endoscopy Indications: Generalized abdominal pain Providers: Gumaro Villavicencio DO Medicines: Propofol per Anesthesia Complications: No immediate complications. Procedure: After obtaining informed consent, the endoscope was passed under direct vision. Throughout the procedure, the patient's blood pressure, pulse, and oxygen saturations were monitored continuously. The Olympus [id number] #[id number] gastroscope was introduced through the mouth, and advanced to the third part of duodenum. The upper GI endoscopy was accomplished without difficulty. The patient tolerated the procedure well. Findings: The nasopharynx and oropharynx were normal. The examined esophagus was normal. Diffuse moderate inflammation characterized by congestion (edema), erythema and granularity was found in the stomach. Biopsies were taken with a cold forceps for histology. The duodenal bulb, first portion of the duodenum and second portion of the duodenum were normal. Impression: - Normal nasopharynx and oropharynx. - Normal esophagus. - Gastritis. Biopsied. - Normal duodenal bulb, first portion of the duodenum and second portion of the duodenum. - Gastritis. [All Maneuvers]. 04/11/22 MRE IMPRESSION: No evidence of active inflammatory bowel disease. EGD 05/17/2022 Findings: The Z-line was regular and was found 45 cm from the incisors. Diffuse mildly erythematous mucosa without bleeding was found in the stomach. Biopsies were taken with a cold forceps for Helicobacter pylori testing. Verification of patient identification for the specimen was done by the nurse and forestry technician using the patient's name and medical record number. Estimated blood loss was minimal. The examined duodenum was normal. Biopsies were taken with a cold forceps for histology. Verification of patient identification for the specimen was done by the nurse and forestry technician using the patient's name and medical record number. Estimated blood loss was minimal. The cardia and gastric fundus were normal on retroflexion. 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 Impression: - Z-line regular, 45 cm from the incisors. - Erythematous mucosa in the stomach. Biopsied. - Normal examined duodenum. Biopsied. - Ectopic gastric mucosa in the upper third of the esophagus. 05/17/2022 Colonoscopy Impression: - Preparation of the colon was fair. - Tortuous colon. - Normal mucosa in the entire examined colon. Biopsied. The terminal ileum could not be completely intubated due to colon tortuousity, however a small part of the small bowel was seen and appeared normal. Pathologic Diagnosis A. Small intestine, duodenum, biopsy: Unremarkable small intestinal mucosa No evidence of celiac sprue. B. Stomach, biopsy: Mild chronic inactive gastritis No Helicobacter pylori organisms identified. C. Colon, random, biopsy: Colonic mucosa with reactive epithelial and stromal changes, suggestive of healing erosions. See Note: Note: There is no significant active or chronic inflammation and no granulomas are identified.The features suggest a resolving injury either an infectious process, drug induced injury or ischemic episode. No evidence of dysplasia or malignancy Assessment: Fran Hernandez is a 42 y.o. female who was referred for further evaluation and treatment of: IBS. Last seen by ARELI Davison on 07/31/2022. EGD and colonoscopy in 05/2022 showed reactive changes int he colon and stomach, but no evidence of IBD. MRE in 04/2022 was unremarkable. Anorectal manometry and SIBO breath testing were ordered and not yet completed. She was continued on hyoscaymine and lomotil as needed. She presents today with the following concerns: - GERD: Reports constant reflux symptoms, worse on an empty stomach, refractory to omeprazole and esomeprazole. EGD showed mild, chronic, inactive gastritis. Suspect possible visceral hypersensitivity, however will trial Dexlansoprazole 60 mg daily. - RUQ Pain: Reports intermittent flares of RUQ pain, recent CTAP in 09/2022 without obvious biliary or pancreatic abnormality, lipase mildly elevated did not meet diagnostic criteria for pancreatitis. Suspect possible functional etiology vs related to GERD, dexlansoprazole as above. May also be gastroparesis given gas and bloating complaints. - Diarrhea, gas, bloating: Reports up to 15 watery bowel movements daily, EGD and colonoscopy largely unremarkable. Suspect possible IBS-D, recommend 14 day course of Rifaximin. If ineffective, consider colestipol. ICD-10-CM 1. Gastroesophageal reflux disease without esophagitis K21.9 Dexlansoprazole 60 MG Cap 2. RUQ pain R10.11 Dexlansoprazole 60 MG Cap 3. Irritable bowel syndrome with diarrhea K58.0 rifAXIMin 550 MG tablet 4. Gas bloat syndrome K92.89 rifAXIMin 550 MG tablet Recommendations: - I am recommending that you complete a course of Rifaximin (an antibiotic) to help reset your gut microbiome, which may be contributing to your symptoms. You should take this three times daily for 14 days. This medication can sometimes be hard to get covered by insurance, so I would like [facility] so they can help with getting it covered. They will mail the script to your house once it has been approved. They will call you prior to shipping to confirm your address and collect any payment that may be required. - Switch to Dexilant 60 mg daily. When you start this, stop omeprazole (prilosec) I discussed my impression and plan with the patient. The patient had the opportunity to ask all questions regarding her condition and answered those questions to the best of my ability Discussion with patient and /or family with regards to: Diagnostic results and or recommended studies Risks and benefits of management or treatment options Important of compliance with chosen treatment Risk factor reduction Patient and family education Follow-Up: I will see her for follow-up in 4 months. Thank you for allowing me to participate in the care of this patient. Grace Flores, , SMOKE JUMPER-RFID MANAGER documented in this encounter [facility] 11-06-2022 Instructions ARELI Ashford - 11/06/2022 1:30 PM EDT - I am recommending that you complete a course of Rifaximin (an antibiotic) to help reset your gut microbiome, which may be contributing to your symptoms. You should take this three times daily for 14 days. This medication can sometimes be hard to get covered by insurance, so I would like to send it to the [facility] specialty pharmacy so they can help with getting it covered. They will mail the script to your house once it has been approved. They will call you prior to shipping to confirm your address and collect any payment that may be required. - Switch to Dexilant 60 mg daily. When you start this, stop omeprazole (prilosec) documented in this encounter [facility] 09-22-2022 Hospital Discharge instructions Jennifer Adhikari MD - 09/22/2022 11:08 PM EDT Thank you for trusting us with your care today. You may use tylenol or ibuprofen as needed for fever and pain. Please also make sure to take all of your steroids Please make an appointment with your primary care doctor for reevalaution in 1-4 days. Please return to the emergency department for any new concerning or worsening symptoms. The following attachments cannot be sent through Care Everywhere.Colitis: General Info (Azerbaijani)documented in this encounter [facility] Siving Egil [place] Work Phone: 07-31-2022 History of Present illness Narrative Reason for Visit: She had concerns including Follow-up. HPI: Fran Hernandez is a 42 y.o. female with a history of fecal incontinence. She is usually able to control her bowel movements but she sometimes has explosive diarrhea and is unable to make it to a bathroom in time. She does have a history of IBS and has always had a low BMI. She has a family history of inflammatory bowel disease in a remote family member. She has never had bloody stools. She has had a relatively negative work up, including negative colonoscopy and EGD for inflammatory bowel disease. She has not completed the stool studies to rule out infectious origin. She is feeling well having 2- 10 BMs daily. Per patient some are soft and some are loose, but most are liquid. Denies abdominal pain, nausea and vomiting. She is taking hyoscyamine and lomotil. She has had incontinence episodes, and reports urgency. PMH: She has a past medical history of Arthritis (2020), Colitis, IBS (irritable bowel syndrome), Low blood pressure, and Ovarian cancer. PSH: She has a past surgical history that includes hysterectomy; cholecystectomy; and hernia repair. Current Outpatient Medications Medication Sig benzonatate 200 MG capsule TAKE 1 CAPSULE BY MOUTH THREE TIMES DAILY NEEDED buPROPion 150 MG tablet SR TAKE 1 TABLET BY MOUTH DAILY FOR 3 DAYS then TAKE 1 TABLET BY MOUTH TWICE DAILY cholecalciferol 10 MCG (400 UNIT) tablet Take 1 tablet by mouth daily. diphenoxylate-atropine 2.5-0.025 MG tablet EC/DR diphenoxylate-atropine 2.5 mg-0.025 mg tablet Eluxadoline 75 MG tablet Take 1 tablet by mouth Twice daily. hyoscyamine 0.125 MG tablet hyoscyamine sulfate 0.125 mg tablet midodrine 2.5 MG tablet Take 1 tablet by mouth. nicotine 21 MG/24HR Patch 24 HR patch APPLY 1 (ONE) patch to the skin DAILY ondansetron 4 MG tablet Take 1 tablet by mouth Every 8 hours as needed. Allergies: She is allergic to amoxicillin. Social History: She reports that she has been smoking. She has never used smokeless tobacco. She reports that she does not currently use alcohol. No history on file for drug use. Family History: Her family history includes GI Disease in her father and mother; Heart Failure in her maternal uncle; Prostate Cancer in her maternal uncle. Review of Systems: The complete review of systems was done, positive as noted, rest negative . Physical Examination Vitals: 07/31/22 0934 BP: 112/70 Pulse: 75 General: Normal appearing male, in NAD, weight appropriate for height. Skin: no apparent rashes, scars, bruises, tattoos or bleeding HEENT: head normocephalic/atraumatic. PERRL and anicteric.No cervical lymphadenopathy or neck masses. Neck ROM in tact. Cardiovascular: RRR, Normal S1/S2, No murmurs, rubs or gallops. Respiratory: Lungs CTAb. No wheezes or crackles. Abdomen: soft, NT/ND, no organomegaly. No CVA tenderness. Musculoskeletal: No gross ROM deficiencies. Neurologic: Sensation and strength grossly preserved. Labs: Lab Results Component Value Date WBC 7.66 01/20/2022 HGB 15.1 01/20/2022 HCT 44.0 01/20/2022 PLATELET 161 01/20/2022 MCV 95.0 01/20/2022 Lab Results Component Value Date SODIUM 140 01/20/2022 POTASSIUM 4.1 01/20/2022 CHLORIDE 103 01/20/2022 CO2 28 01/20/2022 BUN 12 01/20/2022 CREATSERUM 0.98 01/20/2022 Lab Results Component Value Date ALT 12 01/20/2022 AST 18 01/20/2022 ALKPHOS 81 01/20/2022 BILITOTAL 0.4 01/20/2022 BILIDIRECT 0.1 01/20/2022 ALBUMIN 4.1 01/20/[address] IMPRESSION: 1. No evidence of appendicitis. 2. Prominent hepatic veins, mesenteric veins, and IVC, significance is undetermined but this could be a normal variant. 3. Mild hepatomegaly and periportal edema. Colonoscopy 2017 Findings: The perianal and digital rectal examinations were normal. The colon (entire examined portion) appeared normal. Impression: - The entire examined colon is normal. - No specimens collected. [facility] Patient Name: Fran Hernandez Procedure: Upper GI endoscopy Indications: Generalized abdominal pain Providers: Gumaro Villavicencio DO Medicines: Propofol per Anesthesia Complications: No immediate complications. Procedure: After obtaining informed consent, the endoscope was passed under direct vision. Throughout the procedure, the patient's blood pressure, pulse, and oxygen saturations were monitored continuously. The Olympus [id number]-[id number] #[id number] gastroscope was introduced through the mouth, and advanced to the third part of duodenum. The upper GI endoscopy was accomplished without difficulty. The patient tolerated the procedure well. Findings: The nasopharynx and oropharynx were normal. The examined esophagus was normal. Diffuse moderate inflammation characterized by congestion (edema), erythema and granularity was found in the stomach. Biopsies were taken with a cold forceps for histology. The duodenal bulb, first portion of the duodenum and second portion of the duodenum were normal. Impression: - Normal nasopharynx and oropharynx. - Normal esophagus. - Gastritis. Biopsied. - Normal duodenal bulb, first portion of the duodenum and second portion of the duodenum. - Gastritis. [All Maneuvers]. 04/11/22 MRE IMPRESSION: No evidence of active inflammatory bowel disease. 05/17/2022 Colonoscopy Impression: - Preparation of the colon was fair. - Tortuous colon. - Normal mucosa in the entire examined colon. Biopsied. The terminal ileum could not be completely intubated due to colon tortuousity, however a small part of the small bowel was seen and appeared normal. Pathologic Diagnosis A. Small intestine, duodenum, biopsy: Unremarkable small intestinal mucosa No evidence of celiac sprue. B. Stomach, biopsy: Mild chronic inactive gastritis No Helicobacter pylori organisms identified. C. Colon, random, biopsy: Colonic mucosa with reactive epithelial and stromal changes, suggestive of healing erosions. See Note: Note: There is no significant active or chronic inflammation and no granulomas are identified.The features suggest a resolving injury either an infectious process, drug induced injury or ischemic episode. No evidence of dysplasia or malignancy Assessment/ Plan The encounter diagnosis was Functional diarrhea. Fran Hernandez is a 42 y.o. female with a history of fecal incontinence. She is usually able to control her bowel movements but she sometimes has explosive diarrhea and is unable to make it to a bathroom in time. She does have a history of IBS and has always had a low BMI. She has a family history of inflammatory bowel disease in a remote family member. She has never had bloody stools. She reports today still having 2-10 BMs daily that vary in formation, most are liquid still with some fecal incontinence. She did not complete the previous stool studies, will order stool studies to rule out infection and have patient follow up with general GI. Will order anal manometry due to fecal incontinence and hydrogen breath test to rule out SIBO. Her last colonoscopy 05/17/2022 showed no evidence of inflammatory bowel disease. We recommend to continue diphenoxylate-atropine and hyoscyamine for symptom control and follow up with GI. Recommendations - Continue lomotil and hyoscyamine for symptom control - Do stool studies to rule out infectious origin - Will order anal manometry due to incontinence - Hydrogen breath test to rule SIBO - Follow up with GI in 3 months ARELI Davison IBD Nurse Practitioner Division of Gastroenterology, Hepatology, and Nutrition Reason for Visit: She had concerns including Follow-up. HPI: Fran Hernandez is a 42 y.o. female with a history of fecal incontinence. She is usually able to control her bowel movements but she sometimes has explosive diarrhea and is unable to make it to a bathroom in time. She does have a history of IBS and has always had a low BMI. She has a family history of inflammatory bowel disease in a remote family member. She has never had bloody stools. She has had a relatively negative work up, including negative colonoscopy and EGD for inflammatory bowel disease. She has not completed the stool studies to rule out infectious origin. She is feeling well having 2- 10 BMs daily. Per patient some are soft and some are loose, but most are liquid. Denies abdominal pain, nausea and vomiting. She is taking hyoscyamine and lomotil. She has had incontinence episodes, and reports urgency. PMH: She has a past medical history of Arthritis (2020), Colitis, IBS (irritable bowel syndrome), Low blood pressure, and Ovarian cancer. PSH: She has a past surgical history that includes hysterectomy; cholecystectomy; and hernia repair. Current Outpatient Medications Medication Sig benzonatate 200 MG capsule TAKE 1 CAPSULE BY MOUTH THREE TIMES DAILY NEEDED buPROPion 150 MG tablet SR TAKE 1 TABLET BY MOUTH DAILY FOR 3 DAYS then TAKE 1 TABLET BY MOUTH TWICE DAILY cholecalciferol 10 MCG (400 UNIT) tablet Take 1 tablet by mouth daily. diphenoxylate-atropine 2.5-0.025 MG tablet EC/DR diphenoxylate-atropine 2.5 mg-0.025 mg tablet Eluxadoline 75 MG tablet Take 1 tablet by mouth Twice daily. hyoscyamine 0.125 MG tablet hyoscyamine sulfate 0.125 mg tablet midodrine 2.5 MG tablet Take 1 tablet by mouth. nicotine 21 MG/24HR Patch 24 HR patch APPLY 1 (ONE) patch to the skin DAILY ondansetron 4 MG tablet Take 1 tablet by mouth Every 8 hours as needed. Allergies: She is allergic to amoxicillin. Social History: She reports that she has been smoking. She has never used smokeless tobacco. She reports that she does not currently use alcohol. No history on file for drug use. Family History: Her family history includes GI Disease in her father and mother; Heart Failure in her maternal uncle; Prostate Cancer in her maternal uncle. Review of Systems: The complete review of systems was done, positive as noted, rest negative . Physical Examination Vitals: 07/31/22 0934 BP: 112/70 Pulse: 75 General: Normal appearing male, in NAD, weight appropriate for height. Skin: no apparent rashes, scars, bruises, tattoos or bleeding HEENT: head normocephalic/atraumatic. PERRL and anicteric.No cervical lymphadenopathy or neck masses. Neck ROM in tact. Cardiovascular: RRR, Normal S1/S2, No murmurs, rubs or gallops. Respiratory: Lungs CTAb. No wheezes or crackles. Abdomen: soft, NT/ND, no organomegaly. No CVA tenderness. Musculoskeletal: No gross ROM deficiencies. Neurologic: Sensation and strength grossly preserved. Labs: Lab Results Component Value Date WBC 7.66 01/20/2022 HGB 15.1 01/20/2022 HCT 44.0 01/20/2022 PLATELET 161 01/20/2022 MCV 95.0 01/20/2022 Lab Results Component Value Date SODIUM 140 01/20/2022 POTASSIUM 4.1 01/20/2022 CHLORIDE 103 01/20/2022 CO2 28 01/20/2022 BUN 12 01/20/2022 CREATSERUM 0.98 01/20/2022 Lab Results Component Value Date ALT 12 01/20/2022 AST 18 01/20/2022 ALKPHOS 81 01/20/2022 BILITOTAL 0.4 01/20/2022 BILIDIRECT 0.1 01/20/2022 ALBUMIN 4.1 01/20/[address] IMPRESSION: 1. No evidence of appendicitis. 2. Prominent hepatic veins, mesenteric veins, and IVC, significance is undetermined but this could be a normal variant. 3. Mild hepatomegaly and periportal edema. Colonoscopy 2016 Findings: The perianal and digital rectal examinations were normal. The colon (entire examined portion) appeared normal. Impression: - The entire examined colon is normal. - No specimens collected. [facility] Patient Name: Fran Hernandez Procedure: Upper GI endoscopy Indications: Generalized abdominal pain Providers: Gumaro Villavicencio DO Medicines: Propofol per Anesthesia Complications: No immediate complications. Procedure: After obtaining informed consent, the endoscope was passed under direct vision. Throughout the procedure, the patient's blood pressure, pulse, and oxygen saturations were monitored continuously. The Olympus [id number] #[id number] gastroscope was introduced through the mouth, and advanced to the third part of duodenum. The upper GI endoscopy was accomplished without difficulty. The patient tolerated the procedure well. Findings: The nasopharynx and oropharynx were normal. The examined esophagus was normal. Diffuse moderate inflammation characterized by congestion (edema), erythema and granularity was found in the stomach. Biopsies were taken with a cold forceps for histology. The duodenal bulb, first portion of the duodenum and second portion of the duodenum were normal. Impression: - Normal nasopharynx and oropharynx. - Normal esophagus. - Gastritis. Biopsied. - Normal duodenal bulb, first portion of the duodenum and second portion of the duodenum. - Gastritis. [All Maneuvers]. 04/11/22 MRE IMPRESSION: No evidence of active inflammatory bowel disease. 05/17/2022 Colonoscopy Impression: - Preparation of the colon was fair. - Tortuous colon. - Normal mucosa in the entire examined colon. Biopsied. The terminal ileum could not be completely intubated due to colon tortuousity, however a small part of the small bowel was seen and appeared normal. Pathologic Diagnosis A. Small intestine, duodenum, biopsy: Unremarkable small intestinal mucosa No evidence of celiac sprue. B. Stomach, biopsy: Mild chronic inactive gastritis No Helicobacter pylori organisms identified. C. Colon, random, biopsy: Colonic mucosa with reactive epithelial and stromal changes, suggestive of healing erosions. See Note: Note: There is no significant active or chronic inflammation and no granulomas are identified.The features suggest a resolving injury either an infectious process, drug induced injury or ischemic episode. No evidence of dysplasia or malignancy Assessment/ Plan The encounter diagnosis was Functional diarrhea. Fran Hernandez is a 42 y.o. female with a history of fecal incontinence. She is usually able to control her bowel movements but she sometimes has explosive diarrhea and is unable to make it to a bathroom in time. She does have a history of IBS and has always had a low BMI. She has a family history of inflammatory bowel disease in a remote family member. She has never had bloody stools. She reports today still having 2-10 BMs daily that vary in formation, most are liquid still with some fecal incontinence. She did not complete the previous stool studies, will order stool studies to rule out infection and have patient follow up with general GI. Will order anal manometry due to fecal incontinence and hydrogen breath test to rule out SIBO. Her last colonoscopy 05/17/2022 showed no evidence of inflammatory bowel disease. We recommend to continue diphenoxylate-atropine and hyoscyamine for symptom control and follow up with GI. Recommendations - Continue lomotil and hyoscyamine for symptom control - Do stool studies to rule out infectious origin - Will order anal manometry due to incontinence - Hydrogen breath test to rule SIBO - Follow up with general GI in 3 months documented in this encounter [facility] 07-31-2022 Instructions Tanner Hsu MD - 07/31/2022 9:30 AM EST - Continue lomotil and hyoscyamine - Do stool studies - proceed with anal manometry - do breath hydrogen test - try probiotics over the counter Rtc 3 months in general GI clinic documented in this encounter [facility] 05-17-2022 Nurse Note Discharge criteria met. Discharge instructions reviewed including possible side effects from procedure, side effects from medication, restrictions regarding driving, activity, and alcohol consumption for the remainder of the day. Reviewed procedure and findings. Provided contact number for questions or concerns. ProVation report provided. Understanding verbalized. Transported to waiting area - ambulatory - accompanied by her (solo truck driver). documented in this encounter [facility] 05-17-2022 Nurse Surgical operation note Discharge criteria met. Discharge instructions reviewed including possible side effects from procedure, side effects from medication, restrictions regarding driving, activity, and alcohol consumption for the remainder of the day. Reviewed procedure and findings. Provided contact number for questions or concerns. ProVation report provided. Understanding verbalized. Transported to waiting area - ambulatory - accompanied by her (solo truck driver). [facility] 05-17-2022 History and physical note ENDOSCOPIC PREPROCEDURE HISTORY AND PHYSICAL HISTORY OF PRESENT ILLNESS: Fran Hernandez is a 41 y.o. female seen in the preoprocedure area at [facility]. The indication for endoscopic evaluation includes: Chronic diarrhea Family history of ulcerative colitis Chronic diarrhea Family history of ulcerative colitis PAST MEDICAL HISTORY: Past Medical History: Diagnosis Date Colitis IBS (irritable bowel syndrome) Low blood pressure Ovarian cancer SURGICAL HISTORY: Past Surgical History: Procedure Laterality Date CHOLECYSTECTOMY HERNIA REPAIR HYSTERECTOMY MEDICATIONS: Current Outpatient Medications Medication Instructions benzonatate 200 MG capsule TAKE 1 CAPSULE BY MOUTH THREE TIMES DAILY NEEDED buPROPion 150 MG tablet SR TAKE 1 TABLET BY MOUTH DAILY FOR 3 DAYS then TAKE 1 TABLET BY MOUTH TWICE DAILY cholecalciferol (VITAMIN D3) 400 Units, Oral, DAILY diphenoxylate-atropine 2.5-0.025 MG tablet EC/DR diphenoxylate-atropine 2.5 mg-0.025 mg tablet Eluxadoline 75 mg, Oral, 2 TIMES DAILY hyoscyamine 0.125 MG tablet hyoscyamine sulfate 0.125 mg tablet midodrine (PROAMATINE) 2.5 mg, Oral nicotine 21 MG/24HR Patch 24 HR patch APPLY 1 (ONE) patch to the skin DAILY ondansetron (ZOFRAN) 4 mg, Oral, EVERY 8 HOURS PRN Current Outpatient Medications: cholecalciferol 10 MCG (400 UNIT) tablet, Take 400 Units by mouth daily., Disp: , Rfl: Eluxadoline 75 MG tablet, Take 75 mg by mouth Twice daily., Disp: , Rfl: hyoscyamine 0.125 MG tablet, hyoscyamine sulfate 0.125 mg tablet, Disp: , Rfl: midodrine 2.5 MG tablet, Take 2.5 mg by mouth., Disp: , Rfl: ondansetron 4 MG tablet, Take 4 mg by mouth Every 8 hours as needed., Disp: , Rfl: benzonatate 200 MG capsule, TAKE 1 CAPSULE BY MOUTH THREE TIMES DAILY NEEDED, Disp: , Rfl: buPROPion 150 MG tablet SR, TAKE 1 TABLET BY MOUTH DAILY FOR 3 DAYS then TAKE 1 TABLET BY MOUTH TWICE DAILY, Disp: , Rfl: diphenoxylate-atropine 2.5-0.025 MG tablet EC/DR, diphenoxylate-atropine 2.5 mg-0.025 mg tablet, Disp: , Rfl: nicotine 21 MG/24HR Patch 24 HR patch, APPLY 1 (ONE) patch to the skin DAILY, Disp: , Rfl: ALLERGIES: Allergies Allergen Reactions Amoxicillin FOCUSED REVIEW OF SYSTEMS: Negative for nausea, vomiting, abdominal pain and diarrhea VITAL SIGNS: Vitals: 05/17/22 1102 05/17/22 1217 BP: 113/67 92/58 Pulse: 75 83 Resp: 23 19 Temp: 98.2 degrees F (36.8 degrees C) TempSrc: Infrared SpO2: 98% 98% Height: 1.803 m (5' 11 ) PREPROCEDURE PHYSICAL EXAM: AIRWAY: normal, Mallampati: Class II (complete visualization of the uvula) HEART: Regular and No murmur PULMONARY: Lungs clear to auscultation bilaterally ABDOMEN: Soft, nontender, nondistended ASSESSMENT: Fran Hernandez is a 41 y.o. female is ready for the planned procedure. ASA Class: ASA 2 - Patient with mild systemic disease with no functional limitations PLAN: Will plan to proceed with DIAGNOSTIC COLONOSCOPY DIAGNOSTIC UPPER ENDOSCOPY using Monitored Anesthesia Care. Tanner Hsu MD [facility] 05-17-2022 History and physical note ENDOSCOPIC PREPROCEDURE HISTORY AND PHYSICAL HISTORY OF PRESENT ILLNESS: Fran Hernandez is a 41 y.o. female seen in the preoprocedure area at [facility]. The indication for endoscopic evaluation includes: Chronic diarrhea Family history of ulcerative colitis Chronic diarrhea Family history of ulcerative colitis PAST MEDICAL HISTORY: Past Medical History: Diagnosis Date Colitis IBS (irritable bowel syndrome) Low blood pressure Ovarian cancer SURGICAL HISTORY: Past Surgical History: Procedure Laterality Date CHOLECYSTECTOMY HERNIA REPAIR HYSTERECTOMY MEDICATIONS: Current Outpatient Medications Medication Instructions benzonatate 200 MG capsule TAKE 1 CAPSULE BY MOUTH THREE TIMES DAILY NEEDED buPROPion 150 MG tablet SR TAKE 1 TABLET BY MOUTH DAILY FOR 3 DAYS then TAKE 1 TABLET BY MOUTH TWICE DAILY cholecalciferol (VITAMIN D3) 400 Units, Oral, DAILY diphenoxylate-atropine 2.5-0.025 MG tablet EC/DR diphenoxylate-atropine 2.5 mg-0.025 mg tablet Eluxadoline 75 mg, Oral, 2 TIMES DAILY hyoscyamine 0.125 MG tablet hyoscyamine sulfate 0.125 mg tablet midodrine (PROAMATINE) 2.5 mg, Oral nicotine 21 MG/24HR Patch 24 HR patch APPLY 1 (ONE) patch to the skin DAILY ondansetron (ZOFRAN) 4 mg, Oral, EVERY 8 HOURS PRN Current Outpatient Medications: cholecalciferol 10 MCG (400 UNIT) tablet, Take 400 Units by mouth daily., Disp: , Rfl: Eluxadoline 75 MG tablet, Take 75 mg by mouth Twice daily., Disp: , Rfl: hyoscyamine 0.125 MG tablet, hyoscyamine sulfate 0.125 mg tablet, Disp: , Rfl: midodrine 2.5 MG tablet, Take 2.5 mg by mouth., Disp: , Rfl: ondansetron 4 MG tablet, Take 4 mg by mouth Every 8 hours as needed., Disp: , Rfl: benzonatate 200 MG capsule, TAKE 1 CAPSULE BY MOUTH THREE TIMES DAILY NEEDED, Disp: , Rfl: buPROPion 150 MG tablet SR, TAKE 1 TABLET BY MOUTH DAILY FOR 3 DAYS then TAKE 1 TABLET BY MOUTH TWICE DAILY, Disp: , Rfl: diphenoxylate-atropine 2.5-0.025 MG tablet EC/DR, diphenoxylate-atropine 2.5 mg-0.025 mg tablet, Disp: , Rfl: nicotine 21 MG/24HR Patch 24 HR patch, APPLY 1 (ONE) patch to the skin DAILY, Disp: , Rfl: ALLERGIES: Allergies Allergen Reactions Amoxicillin FOCUSED REVIEW OF SYSTEMS: Negative for nausea, vomiting, abdominal pain and diarrhea VITAL SIGNS: Vitals: 05/17/22 1102 05/17/22 1217 BP: 113/67 92/58 Pulse: 75 83 Resp: 23 19 Temp: 98.2 degrees F (36.8 degrees C) TempSrc: Infrared SpO2: 98% 98% Height: 1.803 m (5' 11 ) PREPROCEDURE PHYSICAL EXAM: AIRWAY: normal, Mallampati: Class II (complete visualization of the uvula) HEART: Regular and No murmur PULMONARY: Lungs clear to auscultation bilaterally ABDOMEN: Soft, nontender, nondistended ASSESSMENT: Fran Hernandez is a 41 y.o. female is ready for the planned procedure. ASA Class: ASA 2 - Patient with mild systemic disease with no functional limitations PLAN: Will plan to proceed with DIAGNOSTIC COLONOSCOPY DIAGNOSTIC UPPER ENDOSCOPY using Monitored Anesthesia Care. Tanner Hsu MD documented in this encounter [facility] 04-20-2022 Hospital Discharge instructions Layla Keller DO - 04/20/2022 4:57 PM EDT Make sure to elevate your leg when you are resting. Maintain nonweightbearing until you see orthopedics. Please know that opiates are addictive and can result in an overdose that leads to . Please be very careful when taking them, take the smallest amount for the shortest period of time. Please take Motrin as well. Ice your knee. Use the crutches. The following attachments cannot be sent through Care Everywhere.RICE: General Info (Azerba[place]ani)Knee Sprain (Azerbaijani)Strain or Sprain ([place]zerba[place]ani)documented in this encounter [employer] [place] Work Phone: 04-17-2022 History of Present illness Narrative Reason for Visit: She had concerns including Follow-up (Pt reports since having scan last week has had pain since. ). HPI: Fran Hernandez is a 41 y.o. female with a history of fecal incontinence. She is usually able to control her bowel movements but she sometimes has explosive diarrhea and is unable to make it to a bathroom in time. She does have a history of IBS and has always had a low BMI. She has a family history of inflammatory bowel disease in a remote family member. She has never had bloody stools. She has not lost a significant amount of weight recently but has always found it difficult to keep weight on. She smokes approximately 1 ppd. She has FH of UC- both parents had UC. She had egd and colonoscopy in 2016- normal colon, + gastritis. December 2020 she started to have fecal incontinence- she had c.diff and she was treated with medications (she does not remember), in May 2021 she started to have fecal incontinence again - she was not tested for c.diff at that time. IN July 2021 her father , but she did not have a flare then. She is describing 6x/month while driving - she had repeat c.diff testing which was negative. She now is describing rare episodes of blood in stool as hemorrhoids and they are painful. She was tested for celiac and was negative. She had in the past 2-3 episodes of pancreatitis No alcohol for 11 years Patient was scheduled for egd/colonoscopy and she cancelled the appointment due to family problems. She also cancelled the 04/06 endoscopy appointment- per patient she clicked on the wrong button. She also did not do the stool studies . She did the labs which were unrevealing except mild decrease of total proteins. She has low BP and she is on midodrine. She has BM-2-6/day depending on what she eats. She also has significant cramps. PHQ9- 2 PMH: She has a past medical history of Colitis, IBS (irritable bowel syndrome), Low blood pressure, and Ovarian cancer. PSH: She has a past surgical history that includes hysterectomy; cholecystectomy; and hernia repair. Current Outpatient Medications Medication Sig benzonatate 200 MG capsule TAKE 1 CAPSULE BY MOUTH THREE TIMES DAILY NEEDED buPROPion 150 MG tablet SR TAKE 1 TABLET BY MOUTH DAILY FOR 3 DAYS then TAKE 1 TABLET BY MOUTH TWICE DAILY cholecalciferol 10 MCG (400 UNIT) tablet Take 400 Units by mouth daily. diphenoxylate-atropine 2.5-0.025 MG tablet EC/DR diphenoxylate-atropine 2.5 mg-0.025 mg tablet Eluxadoline 75 MG tablet Take 75 mg by mouth Twice daily. hyoscyamine 0.125 MG tablet hyoscyamine sulfate 0.125 mg tablet midodrine 2.5 MG tablet Take 2.5 mg by mouth. nicotine 21 MG/24HR Patch 24 HR patch APPLY 1 (ONE) patch to the skin DAILY ondansetron 4 MG tablet Take 4 mg by mouth Every 8 hours as needed. Allergies: She is allergic to amoxicillin. Social History: She reports that she has been smoking. She has never used smokeless tobacco. She reports that she does not currently use alcohol. No history on file for drug use. Family History: Her family history includes GI Disease in her father and mother. Review of Systems: The complete review of systems was done, positive as noted, rest negative . Physical Examination Vital Signs: BP 110/70 (BP Location: Right arm, BP Position: Sitting) Pulse 76 Ht 1.803 m (5' 11 ) Wt 63.9 kg (140 lb 12.8 oz) SpO2 98% BMI 19.64 kg/m Smoking Status Every Day Body mass index is 19.64 kg/m . General: NAD, WNWD, AAOX3 HEENT: NCAT, EOMI, PERRL, MMM Neck: Supple, no LAD Lungs: CTAB, no R/R/W CV: RRR, nl S1 & S2, no M/R/G Abdomen: Soft, + abdominal pain on palpation no rebound/guarding, no HSM, no palpable masses, +BS Extremities: Warm and dry, no C/C/E, no asterixis Neuro: CN II-XII were intact, no focal deficit Psych: nl affect, nl speech Skin: no rash, no erythema, no jaundice MMSK: no joint swelling or erythema Labs: Lab Results Component Value Date WBC 7.66 01/20/2022 HGB 15.1 01/20/2022 HCT 44.0 01/20/2022 PLATELET 161 01/20/2022 MCV 95.0 01/20/2022 Lab Results Component Value Date SODIUM 140 01/20/2022 POTASSIUM 4.1 01/20/2022 CHLORIDE 103 01/20/2022 CO2 28 01/20/2022 BUN 12 01/20/2022 CREATSERUM 0.98 01/20/2022 Lab Results Component Value Date ALT 12 01/20/2022 AST 18 01/20/2022 ALKPHOS 81 01/20/2022 BILITOTAL 0.4 01/20/2022 BILIDIRECT 0.1 01/20/2022 ALBUMIN 4.1 01/20/[address] IMPRESSION: 1. No evidence of appendicitis. 2. Prominent hepatic veins, mesenteric veins, and IVC, significance is undetermined but this could be a normal variant. 3. Mild hepatomegaly and periportal edema. 2016 Patient Name: Fran Hernandez Procedure Date No Time: 06/21/2017 Date of : 1980 Admit Type: Outpatient Age: 36 Room: [place] [address] Gender: Female Note Status: Finalized Attending MD: Gumaro Villavicencio DO Procedure: Colonoscopy Indications: Generalized abdominal pain, Diarrhea Providers: Gumaro Villavicencio DO Medicines: Propofol per Anesthesia Complications: No immediate complications. Procedure: After I obtained informed consent, the scope was passed under direct vision. Throughout the procedure, the patient's blood pressure, pulse, and oxygen saturations were monitored continuously. The Olympus [id number] #[id number] adult colonoscope was introduced through the anus and advanced to the cecum, identified by appendiceal orifice and ileocecal valve. The colonoscopy was performed without difficulty. The patient tolerated the procedure well. The quality of the bowel preparation was adequate to identify polyps. Findings: The perianal and digital rectal examinations were normal. The colon (entire examined portion) appeared normal. Impression: - The entire examined colon is normal. - No specimens collected. [facility] Patient Name: Fran Hernandez Procedure Date No Time: 06/21/2017 Date of : 1980 Admit Type: Outpatient Age: 36 Room: [place] [address] Gender: Female Note Status: Finalized Attending MD: Gumaro Villavicencio DO Procedure: Upper GI endoscopy Indications: Generalized abdominal pain Providers: Gumaro Villavicencio DO Medicines: Propofol per Anesthesia Complications: No immediate complications. Procedure: After obtaining informed consent, the endoscope was passed under direct vision. Throughout the procedure, the patient's blood pressure, pulse, and oxygen saturations were monitored continuously. The Olympus [id number] #[id number] gastroscope was introduced through the mouth, and advanced to the third part of duodenum. The upper GI endoscopy was accomplished without difficulty. The patient tolerated the procedure well. Findings: The nasopharynx and oropharynx were normal. The examined esophagus was normal. Diffuse moderate inflammation characterized by congestion (edema), erythema and granularity was found in the stomach. Biopsies were taken with a cold forceps for histology. The duodenal bulb, first portion of the duodenum and second portion of the duodenum were normal. Impression: - Normal nasopharynx and oropharynx. - Normal esophagus. - Gastritis. Biopsied. - Normal duodenal bulb, first portion of the duodenum and second portion of the duodenum. - Gastritis. [All Maneuvers]. Recommendation: - Await pathology results. - Use Prilosec (omeprazole) 40 mg PO daily for 8 weeks. - Return to my office in 1 week. 04/11/22 MRE IMPRESSION: No evidence of active inflammatory bowel disease. Assessment: The primary encounter diagnosis was Chronic diarrhea. Diagnoses of Family history of ulcerative colitis and Abdominal pain, unspecified abdominal location were also pertinent to this visit. Fran Hernandez is a 41 y.o. female with a history of fecal incontinence. She is usually able to control her bowel movements but she sometimes has explosive diarrhea and is unable to make it to a bathroom in time. She does have a history of IBS and has always had a low BMI. She has a family history of inflammatory bowel disease in a remote family member. She has never had bloody stools. She has not lost a significant amount of weight recently but has always found it difficult to keep weight on. She smokes approximately 1 ppd. She has FH of UC- both parents had UC. She had egd and colonoscopy in 2016- normal colon, + gastritis. December 2020 she started to have fecal incontinence- she had c.diff and she was treated with medications (she does not remember), in May 2021 she started to have fecal incontinence again - she was not tested for c.diff at that time. IN July 2021 her father , but she did not have a flare then. She is describing 6x/month while driving - she had repeat c.diff testing which was negative. She now is describing rare episodes of blood in stool as hemorrhoids and they are painful. She was tested for celiac and was negative. She had in the past 2-3 episodes of pancreatitis No alcohol for 11 years - try to avoid NSAIDS, can take tylenol - do labs stool studies -schedule egd/colonoscopy to better evaluate the GI tract- Risks, benefits and alternatives of the planned procedure were discussed with the patient and the patient verbalized understanding. -smoking cessation - if abnormal pancreas elastase we will do imaging of the pancreas -if unrevealing evaluation we will do anal manometry Patient is on lomotil and hyoscyamine Plan: Fran was seen today for follow-up. Diagnoses and all orders for this visit: Chronic diarrhea Family history of ulcerative colitis Abdominal pain, unspecified abdominal location Patient Instructions - try to avoid NSAIDS, can take tylenol - do labs stool studies -schedule egd/colonoscopy to better evaluate the GI tract- Risks, benefits and alternatives of the planned procedure were discussed with the patient and the patient verbalized understanding. -smoking cessation - if abnormal pancreas elastase we will do imaging of the pancreas -if unrevealing evaluation we will do anal manometry - try to avoid NSAIDS, can take tylenol - do labs stool studies -schedule egd/colonoscopy to better evaluate the GI tract -smoking cessation - if abnormal pancreas elastase we will do imaging of the pancreas -if unrevealing evaluation we will do anal manometry -continue hyoscyamine Rtc 3months- general GI clinic or motility Disposition: No disposition on file. documented in this encounter [facility] 04-17-2022 Instructions Tanner Hsu MD - 04/17/2022 9:00 AM EDT - try to avoid NSAIDS, can take tylenol - do labs stool studies -schedule egd/colonoscopy to better evaluate the GI tract- Risks, benefits and alternatives of the planned procedure were discussed with the patient and the patient verbalized understanding. -smoking cessation - if abnormal pancreas elastase we will do imaging of the pancreas -if unrevealing evaluation we will do anal manometry - try to avoid NSAIDS, can take tylenol - do labs stool studies -schedule egd/colonoscopy to better evaluate the GI tract -smoking cessation - if abnormal pancreas elastase we will do imaging of the pancreas -if unrevealing evaluation we will do anal manometry -continue hyoscyamine Rtc 3months- general GI clinic or motility documented in this encounter [facility] 01-20-2022 Instructions Tanner Hsu MD - 01/20/2022 11:50 AM EDT Rtc ocotber 7th Do labs, stool studies, MRE and egd/colonoscopy [facility] History of Present illness Narrative Reason for Visit: She had concerns including Diarrhea and Follow-up. HPI: Fran Hernandez is a 41 y.o. female with a history of fecal incontinence. She is usually able to control her bowel movements but she sometimes has explosive diarrhea and is unable to make it to a bathroom in time. She does have a history of IBS and has always had a low BMI. She has a family history of inflammatory bowel disease in a remote family member. She has never had bloody stools. She has not lost a significant amount of weight recently but has always found it difficult to keep weight on. She smokes approximately 1 ppd. She has FH of UC- both parents had UC. She had egd and colonoscopy in 2017- normal colon, + gastritis. December 2020 she started to have fecal incontinence- she had c.diff and she was treated with medications (she does not remember), in May 2021 she started to have fecal incontinence again - she was not tested for c.diff at that time. IN July 2021 her father , but she did not have a flare then. She is describing 6x/month while driving - she had repeat c.diff testing which was negative. She now is describing rare episodes of blood in stool as hemorrhoids and they are painful. She was tested for celiac and was negative. She had in the past 2-3 episodes of pancreatitis No alcohol for 11 years Patient was scheduled for egd/colonoscopy and she cancelled the appointment due to family problems. Now she is scheduled in Apr 06. She also did not do the stool studies or labs. She has low BP and she is on midodrine. She has BM-2-6/day depending on what she eats. She also has significant cramps. PHQ9- 11- patient denied depression, not feeling well because of frequent diarrhea and abdominal pain PMH: She has a past medical history of Colitis, IBS (irritable bowel syndrome), Low blood pressure, and Ovarian cancer. PSH: She has a past surgical history that includes hysterectomy; cholecystectomy; and hernia repair. Current Outpatient Medications Medication Sig benzonatate 200 MG capsule TAKE 1 CAPSULE BY MOUTH THREE TIMES DAILY NEEDED buPROPion 150 MG tablet SR TAKE 1 TABLET BY MOUTH DAILY FOR 3 DAYS then TAKE 1 TABLET BY MOUTH TWICE DAILY cholecalciferol 10 MCG (400 UNIT) tablet Take 400 Units by mouth daily. diphenoxylate-atropine 2.5-0.025 MG tablet EC/DR diphenoxylate-atropine 2.5 mg-0.025 mg tablet Eluxadoline 75 MG tablet Take 75 mg by mouth Twice daily. hyoscyamine 0.125 MG tablet hyoscyamine sulfate 0.125 mg tablet midodrine 2.5 MG tablet Take 2.5 mg by mouth. nicotine 21 MG/24HR Patch 24 HR patch APPLY 1 (ONE) patch to the skin DAILY ondansetron 4 MG tablet Take 4 mg by mouth Every 8 hours as needed. pregabalin 100 MG capsule Take 100 mg by mouth 2 times daily. Allergies: She is allergic to amoxicillin. Social History: She reports that she has been smoking. She has never used smokeless tobacco. She reports previous alcohol use. No history on file for drug use. Family History: Her family history includes GI Disease in her father and mother. Review of Systems: The complete review of systems was done, positive as noted, rest negative . Physical Examination Vital Signs: BP 92/60 (BP Location: Left arm, BP Position: Sitting) Pulse 79 Ht 1.803 m (5' 11 ) Wt 66 kg (145 lb 9.6 oz) SpO2 95% Comment: RA BMI 20.31 kg/m Smoking Status Current Every Day Smoker Body mass index is 20.31 kg/m . General: NAD, WNWD, AAOX3 HEENT: NCAT, EOMI, PERRL, MMM Neck: Supple, no LAD Lungs: CTAB, no R/R/W CV: RRR, nl S1 & S2, no M/R/G Abdomen: Soft, NT,ND, no rebound/guarding, no HSM, no palpable masses, +BS Extremities: Warm and dry, no C/C/E, no asterixis Neuro: CN II-XII were intact, no focal deficit Psych: nl affect, nl speech Skin: no rash, no erythema, no jaundice MMSK: no joint swelling or erythema Labs: No results found for: WBC, WBCCOUNT, WBCFETAL, HGB, HCT, PLATELET, MCV No results found for: SODIUM, POTASSIUM, CHLORIDE, CO2, BUN, CREATSERUM, GLUCOSE No results found for: ALT, TRANSFERASEA, AST, GGT, GAMMAGT, ALKPHOS, BILITOTAL, BILIDIRECT, TOTALPROTEIN, ALB, ALBUMIN, ALBUMINALB, ALBUMINFLD, ALBUMINCSF, ALBUMINSERUM 2017 CT IMPRESSION: 1. No evidence of appendicitis. 2. Prominent hepatic veins, mesenteric veins, and IVC, significance is undetermined but this could be a normal variant. 3. Mild hepatomegaly and periportal edema. 2016 Patient Name: Fran Hernandez Procedure Date No Time: 06/21/2017 Date of : 1980 Admit Type: Outpatient Age: 36 Room: [place] [address] Gender: Female Note Status: Finalized Attending MD: Gumaro Villavicencio DO Procedure: Colonoscopy Indications: Generalized abdominal pain, Diarrhea Providers: Gumaro Villavicencio DO Medicines: Propofol per Anesthesia Complications: No immediate complications. Procedure: After I obtained informed consent, the scope was passed under direct vision. Throughout the procedure, the patient's blood pressure, pulse, and oxygen saturations were monitored continuously. The Olympus [id number] #[id number] adult colonoscope was introduced through the anus and advanced to the cecum, identified by appendiceal orifice and ileocecal valve. The colonoscopy was performed without difficulty. The patient tolerated the procedure well. The quality of the bowel preparation was adequate to identify polyps. Findings: The perianal and digital rectal examinations were normal. The colon (entire examined portion) appeared normal. Impression: - The entire examined colon is normal. - No specimens collected. [facility] Patient Name: Fran Hernandez Procedure Date No Time: 06/21/2017 Date of : 1980 Admit Type: Outpatient Age: 36 Room: [place] [address] Gender: Female Note Status: Finalized Attending MD: Gumaro Villavicencio DO Procedure: Upper GI endoscopy Indications: Generalized abdominal pain Providers: Gumaro Villavicencio DO Medicines: Propofol per Anesthesia Complications: No immediate complications. Procedure: After obtaining informed consent, the endoscope was passed under direct vision. Throughout the procedure, the patient's blood pressure, pulse, and oxygen saturations were monitored continuously. The Olympus [id number] #[id number] gastroscope was introduced through the mouth, and advanced to the third part of duodenum. The upper GI endoscopy was accomplished without difficulty. The patient tolerated the procedure well. Findings: The nasopharynx and oropharynx were normal. The examined esophagus was normal. Diffuse moderate inflammation characterized by congestion (edema), erythema and granularity was found in the stomach. Biopsies were taken with a cold forceps for histology. The duodenal bulb, first portion of the duodenum and second portion of the duodenum were normal. Impression: - Normal nasopharynx and oropharynx. - Normal esophagus. - Gastritis. Biopsied. - Normal duodenal bulb, first portion of the duodenum and second portion of the duodenum. - Gastritis. [All Maneuvers]. Recommendation: - Await pathology results. - Use Prilosec (omeprazole) 40 mg PO daily for 8 weeks. - Return to my office in 1 week. Assessment: There were no encounter diagnoses. Fran Hernandez is a 41 y.o. female with a history of fecal incontinence. She is usually able to control her bowel movements but she sometimes has explosive diarrhea and is unable to make it to a bathroom in time. She does have a history of IBS and has always had a low BMI. She has a family history of inflammatory bowel disease in a remote family member. She has never had bloody stools. She has not lost a significant amount of weight recently but has always found it difficult to keep weight on. She smokes approximately 1 ppd. She has FH of UC- both parents had UC. She had egd and colonoscopy in 2016- normal colon, + gastritis. December 2020 she started to have fecal incontinence- she had c.diff and she was treated with medications (she does not remember), in May 2021 she started to have fecal incontinence again - she was not tested for c.diff at that time. IN July 2021 her father , but she did not have a flare then. She is describing 6x/month while driving - she had repeat c.diff testing which was negative. She now is describing rare episodes of blood in stool as hemorrhoids and they are painful. She was tested for celiac and was negative. She had in the past 2-3 episodes of pancreatitis No alcohol for 11 years She has not done any of the tests requested last visit - try to avoid NSAIDS, can take tylenol - do labs and stool studies -schedule egd/colonoscopy to better evaluate the GI tract- Risks, benefits and alternatives of the planned procedure were discussed with the patient and the patient verbalized understanding. - continue current medications for now -smoking cessation - if abnormal pancreas elastase we will do imaging of the pancreas -if unrevealing evaluation we will do anal manometry Rtc 04/14 Plan: There are no diagnoses linked to this encounter. There are no Patient Instructions on file for this visit. Disposition: No disposition on file. documented in this encounter [facility] 08-19-2021 Note PROCEDURE: XR KNEE L T 4V or > HISTORY: Pain of knee region , acute COMPARISON: XR knee 06/28/2014, FINDINGS: BONES:No fracture, acute abnormality, or significant arthropathy. SOFT TISSUES:No visible soft tissue swelling. EFFUSION:None visible. OTHER: Negative. IMPRESSION: 1. No acute bone abnormality or significant degenerative changes. Electronically authenticated by: CHEYENNE LATHAM Date: 2021-08-19 11:57 [facility] Evaluation note Diagnosis Neck muscle spasm- Primary Spasm of muscle Chronic neck pain Cervicalgia documented in this encounter [employer] Phone: evaluation note* Diagnosis Chronic diarrhea- Primary Diarrhea Family history of ulcerative colitis Family history of other digestive disorders Abdominal pain, unspecified abdominal location [facility] Diagnosis Chronic diarrhea Diarrhea Abdominal pain, unspecified abdominal location [facility]* Diagnosis Chronic diarrhea- Primary Diarrhea Family history of ulcerative colitis Family history of other digestive disorders Abdominal pain, unspecified abdominal location [facility] Sprain of right knee, unspecified ligament, initial encounter- Primary Knee effusion, right Effusion of lower leg joint documented in this encounter [facility] [employer] Phone: evaluation note* Diagnosis Chronic diarrhea Diarrhea Family history of ulcerative colitis Family history of other digestive disorders [facility] Functional diarrhea- Primary Diarrhea of presumed infectious origin Abdominal pain, unspecified abdominal location [facility]* Diagnosis Tension headache- Primary documented in this encounter [facility] [employer] Phone: evaluation note* Diagnosis Colitis- Primary Other and unspecified noninfectious gastroenteritis and colitis documented in this encounter [facility] [employer] Phone: evaluation note* Diagnosis Gastroesophageal reflux disease without esophagitis- Primary Esophageal reflux RUQ pain Abdominal pain, right upper quadrant Irritable bowel syndrome with diarrhea Irritable bowel syndrome Gas bloat syndrome [facility]* Diagnosis Tendonitis- Primary Enthesopathy of unspecified site documented in this encounter [facility] [employer] note* Diagnosis Effusion of left elbow- Primary Left elbow fracture, closed, initial encounter documented in this encounter [facility] note* Diagnosis Mild major depression, single episode (HCC) (CMS/HCC)- Primary Major depressive disorder, single episode, mild Generalized anxiety disorder (CMS/HCC) Generalized anxiety disorder Gastroesophageal reflux disease without esophagitis Esophageal reflux Chronic rhinosinusitis Unspecified sinusitis (chronic) Neurocardiogenic syncope Irritable bowel syndrome with diarrhea Irritable bowel syndrome Restless leg syndrome Restless legs syndrome (RLS) Annual physical exam [facility] [facility] Breast cancer screening by mammogram Hypokalemia Hypopotassemia Vitamin D deficiency Cervical dystonia Spasmodic torticollis Migraine without aura and without status migrainosus, not intractable ([facility]/HCC) Cervical radiculopathy Brachial neuritis or radiculitis nos Neurocardiogenic syncope [facility] encounter [facility]* Diagnosis Migraine without aura and without status migrainosus, not intractable (CMS/HCC)- Primary documented in this encounter [facility]* Diagnosis Diarrhea, unspecified documented in this encounter [facility]* Diagnosis Mild major depression, single episode (HCC) ([facility]/HCC)- Primary Major depressive disorder, single episode, mild Generalized anxiety disorder ([facility]/HCC) Generalized anxiety disorder Gastroesophageal reflux disease without esophagitis Esophageal reflux Chronic rhinosinusitis Unspecified sinusitis (chronic) Neurocardiogenic syncope Irritable bowel syndrome with diarrhea Irritable bowel syndrome Restless leg syndrome Restless legs syndrome (RLS) Annual physical exam Routine general medical examination at [facility] Breast cancer screening by mammogram Hypokalemia Hypopotassemia Vitamin D deficiency Diarrhea, unspecified [facility]* Diagnosis Mild major depression, single episode (HCC) ([facility]/HCC)- Primary Major depressive disorder, single episode, mild Generalized anxiety disorder ([facility]/HCC) Generalized anxiety disorder Gastroesophageal reflux disease without esophagitis Esophageal reflux Chronic rhinosinusitis Unspecified sinusitis (chronic) Neurocardiogenic syncope Irritable bowel syndrome with diarrhea Irritable bowel syndrome Restless leg syndrome Restless legs syndrome (RLS) Annual physical exam Routine general medical examination at a [facility] Breast cancer screening by mammogram Hypokalemia Hypopotassemia Vitamin D deficiency Cervical radiculopathy- Primary Brachial neuritis or radiculitis nos Restless leg syndrome Restless legs syndrome (RLS) documented in [facility] encounter [facility]* Diagnosis Mild major depression, single episode (HCC) ([facility]/HCC)- Primary Major depressive disorder, single episode, mild Generalized anxiety disorder ([facility]/HCC) Generalized anxiety disorder Gastroesophageal reflux disease without esophagitis Esophageal reflux Chronic rhinosinusitis Unspecified sinusitis (chronic) Neurocardiogenic syncope Irritable bowel syndrome with diarrhea Irritable bowel syndrome Restless leg syndrome Restless legs syndrome (RLS) Annual physical exam Routine general medical examination at a health care facility Breast cancer screening by mammogram Hypokalemia Hypopotassemia Vitamin D deficiency Migraine without aura and without status migrainosus, not intractable (CMS/HCC)- Primary Hyperreflexia Abnormal reflex Falls frequently Personal history of fall Gait instability Abnormality of gait documented in this encounter [facility]* Attachments The following attachments cannot be sent through Care Everywhere. * Neck Spasm (Azerbaijani) [facility] [employer] Work Phone: Hospital Discharge instructions* Attachments The following attachments cannot be sent through Care Everywhere. * Headache (Azerbaijani) [facility] [employer] [place] Work Phone: Hospital Discharge instructions* Attachments The following attachments cannot be sent through Care Everywhere. * Tendon Injury (Tendinopathy) (Azerbaijani) [facility] Family History No Family History Records FoundNo Family History Records FoundNo Family History Records FoundNo Family History Records FoundNo Family History Records FoundNo Family History Records FoundNo Family History Records FoundNo Family History Records FoundNo Family History Records Found Advance Directives No Advanced Directives Records FoundDocuments on File Type Date Recorded Patient Telecommunications Technician Expl anation ACP-Advance Directive ACP-Power of Edge Molder Documents on File Type Date Recorded Patient Telecommunications Technician Expl anation ACP-Advance Directive ACP-Power of Edge Molder Procedure Findings Note MR#: [id number] Pt[facility] Name: Fran Hernandez Surgery Date: 06/06/2018 Room #: 0C Date of : 1980 PROCEDURE NOTEATTENDING: Claudia Pepe M.D.PROCEDURE PERFORMED: Endoscopic ultrasound with esophagogastroduodenoscopyand biopsies.INDICATIONS: Abdominal pain and diarrhea.MEDICATIONS: MAC sedation provided by Anesthesia team.SENIOR ELECTRONICS DESIGN ENGINEER: Dr. Ruma Raymundo.PROCEDURE IN DETAIL: After obtaining the informed consent, which includethe risks, benefits, alternatives, and complications, complications includebleeding, perforation, and reaction to medications. The patient was placedin the left lateral decubitus position after receiving MAC sedationprovided by anesthesia team, after which the Olympus video GIF-190gastroscope was introduced through the mouth down to the esophagus,stomach, then to the 1st and 2nd part of the duodenum with no difficulties.The examination of the esophagus was unremarkable. The examination of thestomach revealed few small erosions at (more content not included)... Discharge Instructions * Attachments The following attachments cannot be sent through Care Everywhere. * Cervical Strain (Azerbaijani) documented in this encounter Assessments Diagnosis Strain of neck muscle, initial encounter- Primary Diagnosis Strain of neck muscle, initial encounter History of Present Illness * Concepcion Farr, PT - 09/08/2020 9:45 AM EST [facility] Out[facility] Therapy Daily Note Date: 09/08/2020 Patient Name: Fran Hernandez : 1980 (40 y.o.) Referring Practitioner: Zayra Coto CNP Referral Date : 08/30/20 Diagnosis: Cervical strain Treatment Diagnosis: Cervical pain Onset Date: 08/23/20 PT Insurance Information: [facility] Total # of Visits Approved: 12 Per Physician Order Total # of Visits to Date: 3 No Show: 0 Canceled Appointment: 0 Plan of Care/Certification Expiration Date: 10/01/20 Pre-Treatment Pain: 7/10 Assessment Assessment: Patient presented not wearing soft cervical collar. Subjectively rates pain 7/10. Exhibits less guarding with movement. Completed pullies, ball stretches, UBE all with fair tolerance withgoal to indirectly work cervical musc. Estim with HP in supine however patient noting muscle spasms. Initiated supportive taping to right shoulder/scapular and will montior benefits. Patient educatedon precautions with tape appliecation. 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 1: Subjective cervical pain < 2/10 with work activities 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 2: UE and cervical ROM WFL to complete daily tasks care home goal 3: Strength of UE's 4+/5 to carry gallon of milk or lift groceries to counter with pain not exceeding 2/10 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 [facility] Out[facility] Physical Therapy Daily Note Date: 09/17/2020 Patient Name: Fran Hernandez : 1980 (40 y.o.) Referring Practitioner: Zayra Coto CNP Referral Date : 08/30/20 Diagnosis: Cervical strain Treatment Diagnosis: Cervical pain Onset Date: 08/23/20 PT Insurance Information: [facility] Total # of Visits Approved: 12 Per Physician Order Total # of Visits to Date: 4 No Show: 1 Canceled Appointment: 1 Plan of Care/Certification Expiration Date: 10/01/20 Pre-Treatment Pain: 4-5/10 Assessment Assessment: Patient has not recieved treatment 09/08/20 due to insurance coverage. She recently also underwent oral surgery. She currently rates her cervical pain 5/10. Cervical left rotation improved to 55 deg; right rotation improved to 25- 30 deg. Tenderness persists along medial scapular borders bilaterally. Completed ex per log and Estim/HP in supine. Progress as able. 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 : 12 visits care home goal 1: Subjective cervical pain < 2/10 with work activities care home goal 2: UE and cervical ROM WFL to complete daily tasks 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 She rescheduled for 09/21/20. Monisha Ramirez PTA Date: 09/20/2020 documented in this encounter* Concepcion Farr PT - 10/05/2020 3:30 PM EDT Images from the original note were not included. [facility] Therapy Daily Note Date: 10/05/2020 Patient Name: Fran Hernandez : 1980 (40 y.o.) Referring Practitioner: Zayra Coto CNP Referral Date : 08/30/20 Diagnosis: Cervical strain Treatment Diagnosis: Cervical pain Onset Date: 08/23/20 PT Insurance Information: [facility] Total # of Visits Approved: 12 Per Physician Order Total # of Visits to Date: 9 No Show: 1 Canceled Appointment: 1 Plan of Care/Certification Expiration Date: 10/01/20 Pre-Treatment Pain: 5/10 Assessment Assessment: Patient reports pain 5/10 noting continued difficulty with turning head. Initiated box lifts to determine safe lifting capabilities; able to lift 15# but only 3 reps due to discomfort . Progress with lifting to increase tolerances. Hold Estim and montor but attempted [place]aston soft tissuemassage with fair tolerance. 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 : 12 visits 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 1: Subjective cervical pain < 2/10 with work activities 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 [facility] Daily Note Date: 10/14/2020 [id number] 1980 (40 y.o.) Referring Practitioner: Zayra Coto CNP Referral Date : 08/30/20 Diagnosis: Cervical strain Treatment Diagnosis: Cervical pain Onset Date: 08/23/20 PT Insurance Information: [facility] Total # of Visits Approved: 12 Per Physician Order Total # of Visits to Date: 12 No Show: 1 Canceled Appointment: 1 Plan of Care/Certification Expiration Date: 10/01/20 Pre-Treatment Pain: 5/10 Assessment Assessment: Patient has completed 12 treatment sessions consisting of exercise for stretching and postural strengthening, manual therapy to address soft tissue tightness, as well as Electrical Stimulation initially for pain/spasm reduction. She is progressing very slowly and gradually and continuesto report cervical pain rated 4-7/10 depending on activity level. Her cervical ROM remains extremely limited into rotations. Her current lifting tolerances are 15# floor to waist on infrequent basis (5 reps) and 10-15# waist to waist infrequently ( 5 reps). She is compliant with her home exercises.Patient has completed her current authorized sessions; plan to hold and await additional orders/auth orization. Based on her current status, she would not be safe to return to her prior job duties dueto her pain, restricted ROM, and limited lifting tolerance both to weight and repetitions. 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 1: Subjective cervical pain < 2/10 with work activities- NOT MET 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 [facility] Daily Note Date: 10/20/2020 Patient Name: Fran Hernandez : 1980 (40 y.o.) Referring Practitioner: Zayra Coto CNP Referral Date : 08/30/20 Diagnosis: Cervical strain Treatment Diagnosis: Cervical pain Onset Date: 08/23/20 PT Insurance Information: [facility] Total # of Visits Approved: 18 Per Physician Order Total # of Visits to Date: 13 No Show: 1 Canceled Appointment: 1 Plan of Care/Certification Expiration Date: 10/01/20 Pre-Treatment Pain: 8-9/10 Assessment Assessment: Patient arrives stating pain 8-9/10 without etiology for pat 2 days. Atttempted exercise with limited tolerance; resumed Estim with HP in supine to bilateral lower cervical/upper thoracicregion deu to exacerbated pain followed by kinesiotape for muscular support and circulatory benefits. Patient states she has been approved for 6 additional visits and is being referred to neurosurgeon due to MRI results of bulging discs. Progress with ex as tolerated and monitor benefits of cervical taping. Modified plan of care visits to include additional 6 authorized by [facility] ( no change in goals). 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 1: Subjective cervical pain < 2/10 with work activities care home goal 2: UE and cervical ROM WFL to complete daily tasks care home goal 3: Strength of UE's 4+/5 to carry gallon of milk or lift groceries to counter with pain not exceeding 2/10 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 4: Oswestry <15/50 Post Treatment Pain: 7/10 Time In: 1300 Time Out : 1345 Timed Code Treatment Minutes: 15 Minutes Total Treatment Time: 45 Minutes CONCEPCION FARR, PT Date: 10/20/2020 documented in this encounter Reason for Referral Status Reason Specialty Diagnoses / Procedures Referred By Contact Referred To Contact Pending Review Radiology Diagnoses Strain of neck muscle, initial encounter Procedures MRI CERVICAL SPINE WO CONTRAST Yadi Zhu, SMOKE JUMPER - RFID MANAGER [address] [place] [address] Specialty Diagnoses / Procedures Referred By Contac t Referred To Contact Diagnoses Chronic diarrhea Abdominal pain, unspecified abdominal location Procedures MRI ENTEROGRAPHY TN MRI, ABDOMEN, COMBO TN MRI, PELVIS, COMBO Tanner Hsu MD [address] [place] [address] Referral ID Status Reason Start Date Expiration Date V isits Requested Visits Authorized [id number] New Request 01/20/2022 02/14/2023 1 1 Referral ID Status Reason Start Date Expiration Date Visits Re quested Visits Authorized [id number] Closed 02/22/2022 02/22/2023 1 1 Specialty Diagnoses / Procedures Referred By Contac t Referred To Contact Diagnoses Chronic diarrhea Family history of ulcerative colitis Procedures DIAGNOSTIC UPPER ENDOSCOPY TN ESOPHAGOGASTRODUODENOSCOPY TRANSORAL DIAGNOSTIC Tanner Hsu MD [address] [place] [address] Referral ID Status Reason Start Date Expiration Date V isits Requested Visits Authorized [id number] New Request 12/12/2021 01/03/2023 1 1 Specialty Diagnoses / Procedures Referred By Contac t Referred To Contact Diagnoses Chronic diarrhea Family history of ulcerative colitis Procedures DIAGNOSTIC COLONOSCOPY TN COLONOSCOPY FLX DX W/COLLJ SPEC WHEN PFRMD Tanner Hsu MD [address] [place] [phone] Referral ID Status Reason Start Date Expiration Date V isits Requested Visits Authorized [id number] New Request 12/12/2021 01/03/2023 1 1 Specialty Diagnoses / Procedures Referred By Contac t Referred To Contact Diagnoses Functional diarrhea Abdominal pain, unspecified abdominal location Procedures HYDROGEN (H2) BREATH TEST Tanner Hsu MD [address] [place] [id number] Referral ID Status Reason Start Date Expiration Date V isits Requested Visits Authorized [id number] New Request 07/31/2022 08/25/2023 1 1 Specialty Diagnoses / Procedures Referred By Contac t Referred To Contact Diagnoses Functional diarrhea Procedures ANORECTAL MANOMETRY Tanner Hsu MD [address] [place] [id number] Referral ID Status Reason Start Date Expiration Date V isits Requested Visits Authorized [id number] New Request 07/31/2022 08/25/2023 1 1 Specialty Diagnoses / Procedures Referred By Contac t Referred To Contact Diagnoses Gastroesophageal reflux disease without esophagitis RUQ pain Grace Flores, SMOKE JUMPER-RFID MANAGER [address] [place] [address] Referral ID Status Reason Start Date Expiration Date V isits Requested Visits Authorized [id number] Pending Review 1 1 Specialty Diagnoses / Procedures Referred By Contac t Referred To Contact Diagnoses Migraine without aura and without status migrainosus, not intractable (CMS/HCC) Vandana Shah, FOXING PAINTER [address] [place] [address] [place] [id number] Referral ID Status Reason Start Date Expiration Date V isits Requested Visits Authorized [id number] Pending Review 03/17/2024 09/13/2024 1 1 Additional Source Comments INFORMATION SOURCE (unrecogn ized section and content) DATE CREATED AUTHOR 06/15/[address] [facility] DATE CREATED AUTHOR AUTHOR'S ORGANIZ ATION 02/04/2022 [facility] DATE CREATED AUTHOR AUTHOR'S ORGANIZ ATION 11/09/2022 [facility] DATE CREATED AUTHOR AUTHOR'S ORGANIZ ATION 12/28/2022 [facility] DATE CREATED AUTHOR AUTHOR'S ORGANIZ ATION 01/28/2023 [facility] DATE CREATED AUTHOR AUTHOR'S ORGANIZ ATION 07/24/2023 [facility] DATE CREATED AUTHOR AUTHOR'S ORGANIZ ATION 08/05/2023 [facility] DATE CREATED AUTHOR AUTHOR'S ORGANIZ ATION 02/09/2024 [facility] DATE CREATED AUTHOR AUTHOR'S ORGANIZ ATION 08/22/2024 [facility] Reason for Visit (unrecogniz ed section and content) Reason Comments Neck Pain states is unable to move her head to left or right. Injured herself 3 days prior to arrival. Status Reason Specialty Diagnoses / Procedures Referre d By Contact Referred To Contact Diagnoses Neck pain Procedures physical therapy [facility] [address] [place] [address] [facility] Status Reason Specialty Diagnoses / Procedures Referred By Contact Referred To Contact Pending Review Radiology Diagnoses Strain of neck muscle, initial encounter Procedures MRI CERVICAL SPINE WO CONTRAST Yadi Zhu, SMOKE JUMPER - RFID MANAGER [address] [place] [address] Reason Comments Neck Pain neck pain that start ed this morning. Unable to turn head left or right. Pain when laying, sitting, standing. Reason Comments Diarrhea Follow-up Specialty Diagnoses / Procedures Referred By Yajaira diallo Referred To Contact Diagnoses Chronic diarrhea Abdominal pain, unspecified abdominal location Procedures MRI ENTEROGRAPHY TN MRI, ABDOMEN, COMBO TN MRI, PELVIS, COMBO Tanner Hsu MD [address] [place] [address] Referral ID Status Reason Start Date Expiration Date Visits Requested Visits Authorized [id number] Authorized - [facility] 02/22/2022 02/22/2023 1 1 Referral ID Status Reason Start Date Expiration Date Visits Re quested Visits Authorized [id number] Closed 02/22/2022 02/22/2023 1 1 Reason Comments Follow-up Pt reports since hav ing scan last week has had pain since. 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 Specialty Diagnoses / Procedures Referred By Yajaira diallo Referred To Contact Diagnoses Chronic diarrhea Family history of ulcerative colitis Procedures DIAGNOSTIC UPPER ENDOSCOPY [place] ESOPHAGOGASTRODUODENOSCOPY TRANSORAL DIAGNOSTIC Tanner Hsu MD [address] [place] [id number] Referral ID Status Reason Start Date Expiration Date V isits Requested Visits Authorized [id number] New Request 12/12/2021 01/03/2023 1 1 Reason Comments Follow-up Reason Comments Headache Ongoing past 5 weeks , increased noise today causing increased pain, c/o pressure to top of head, denies vision changes, c/o sensitivity to sound Reason Comments Abdominal Pain Patient presents to the emergency department with complaint of lower/suprapubic abdominal pain associated with bloody stools since 1100 today. Patient has a history of colitis her surgeon instructed her to come to the emergency department for an evaluation Reason Comments Follow-up Here today for a fol low up Reason Comments Arm Pain Doing yard work last Sunday, late Sunday night into Sunday morning and right forearm pain increased. Reason Comments Injury Fell and injured lef t elbow around noon today Reason Comments Med Refill Ordered Prescriptions (unrec ognized section and content) Prescription Sig Dispensed Refills Start Date End Da te lidocaine (LIDODERM) 5 % Place 1 patch onto the skin daily 12 hours on, 12 hours off. 30 patch 0 11/28/2020 12/28/2020 Prescription Sig Dispensed Refills Start Date End Da te HYDROcodone-acetaminophe n (NORCO) 5-325 MG per tabletIndications:Sprain of right knee, unspecified ligament, initial encounter,Knee effusion, right Take 1 tablet by mouth every 8 hours as needed for Pain for up to 3 days. Intended supply: 3 days. Take lowest dose possible to manage pain 9 tablet 0 04/20/2022 04/23/2022 HYDROcodone-acetaminophe n (NORCO) 5-325 MG per tabletIndications:Sprain of right knee, unspecified ligament, initial encounter,Knee effusion, right Take 1 tablet by mouth every 8 hours as needed for Pain for up to 3 days. Intended supply: 3 days. Take lowest dose possible to manage pain 9 tablet 0 04/20/2022 04/20/2022 Prescription Sig Dispensed Refills Start Date End Da te predniSONE (DELTASONE) 20 MG tablet Take 2 tablets by mouth daily for 3 days, THEN 1.5 tablets daily for 3 days, THEN 1 tablet daily for 3 days, THEN 0.5 tablets daily for 3 days. 15 tablet 0 09/22/2022 10/04/2022 Prescription Sig Dispensed Refills Start Date End Da te diclofenac (VOLTAREN) 75 MG EC tablet Take 1 tablet by mouth 2 times daily as needed for Pain 10 tablet 0 12/27/2022 01/01/2023 Scheduled Active and Recently Administ ered Medications (unrecognized section and content) Medication Order 11/26/2020 11/27/2020 11/28/2020 diazePAM (VALIUM) tablet 5 mg 5 mg, Oral, ONCE, On 11/28/20 at 1745, For 1 dose 173 (Not Given - Pr ovider: Zayra Hernandez RN - Reason: Other - Comment: pt to take since she drove herself) lidocaine 4 % external patch 1 patch 1 patch, Transdermal, Administer over 12 Hours, DAILY, First dose on 11/28/20 at 1745, Apply patch to right neck. Patch may remain in place for up to 12 hours in any 24 hour period. 173 (Patch Applied - Provider: Zayar Hernandez, RN) Scheduled Medication Order 04/18/2022 04/19/2022 04/20/2022 acetaminophen (TYLENOL) tablet 650 mg (COMPLETED) 650 mg, Oral, ONCE, 1 dose, On Maryse 04/20/22 at 1530, Maximum dose of acetaminophen is 4000 mg from all sources in 24 hours. 1538 (Given - Provid er: Greg Corado RN) HYDROcodone-acetaminophen (NORCO) 5-325 MG per tablet 1 tablet (COMPLETED) 1 tablet, Oral, ONCE, 1 dose, On Maryse 04/20/22 at 1815, Maximum dose of acetaminophen is 4000 mg from all sources in 24 hours. 1802 (Given - Provid er: Agueda Bowie RN) ibuprofen (ADVIL;MOTRIN) tablet 600 mg (COMPLETED) 600 mg, Oral, ONCE, 1 dose, On Maryse 04/20/22 at 1530, Do not crush or chew. 1539 (Given - Provid er: Greg Corado RN) morphine injection 2 mg 2 mg, IntraMUSCular, ONCE, 1 dose, On Maryse 04/20/22 at 1615, If oral and IV narcotics ordered, use oral first and only use IV if oral is ineffective or cannot take oral. Do Not give oral and IV within 1 hour of each other unless specifically ordered. 1634 (Not Given - Pr ovider: Greg Corado RN - Reason: Patient/family refused - Comment: Med drawn up by ELLY Romeo. Pt refused. med wasted in med room) Scheduled Medication Order 09/08/2022 09/09/2022 09/10/2022 odefxyijbh-dmtdothgdyexl-vshygozk (FIORICET, ESGIC) per tablet 1 tablet (COMPLETED) 1 tablet, Oral, ONCE, 1 dose, On 09/10/22 at 1830, Maximum dose of acetaminophen is 4000 mg from all sources in 24 hours. 182 (Given - Provid er: Selin James RN) diphenhydrAMINE (BENADRYL) capsule 25 mg (COMPLETED) 25 mg, Oral, ONCE, 1 dose, On 09/10/22 at 1730 174 (Given - Provid er: Vicky Vanessa RN) ibuprofen (ADVIL;MOTRIN) tablet 800 mg (COMPLETED) 800 mg, Oral, ONCE, 1 dose, On 09/10/22 at 1730, Do not crush or break. 173 (Given - Provid er: Vicky Vanessa RN) predniSONE (DELTASONE) tablet 60 mg (COMPLETED) 60 mg, Oral, ONCE, 1 dose, On 09/10/22 at 1730 173 (Given - Provid er: Vicky Vanessa RN) Scheduled Medication Order 09/21/2022 09/22/2022 09/23/2022 hydrOXYzine HCl (ATARAX) tablet 25 mg (COMPLETED) 25 mg, Oral, ONCE, 1 dose, On Sun09/22/22 at 2044 2058 (Given - Provider: Juhi Chapin, ELLY) predniSONE (DELTASONE) tablet 40 mg 40 mg, Oral, ONCE, 1 dose, On Sun09/23/22 at 0000 0020 (Not Given - Provider: Agueda Georges RN - Reason: Other - Comment: Patient says she will wait until she gets her prescription filled tomorrow) PRN Medication Order 09/21/2022 09/22/2022 09/23/2022 iopamidol (ISOVUE-370) 76 % injection 75 mL (COMPLETED) 75 mL, IntraVENous, IMG ONCE PRN, 1 dose, Starting on Sun09/22/22 at 2135, Until Sun09/22/22 at 213, Other 2135 (Given - Provider: Gail Espinosa) Care Teams (unrecognized sec tion and content) Lead Mechanical Engineer Relationship Specialty Start Date End Date Honorio Vasquez MD [address] [place] [phone] PCP - General Family Medicine 04/11/22 Lead Mechanical Engineer Relationship Specialty Start Date End Date Honorio Vasquez MD [address] [place] [phone] PCP - General Family Medicine 04/11/22 Lead Mechanical Engineer Relationship Specialty Start Date End Date Honorio Vasquez MD [address] [place] [address] PCP - General Family Medicine 04/20/22 Lead Mechanical Engineer Relationship Specialty Start Date End Date Honorio Vasquez MD [address] [place] [address] PCP - General Family Medicine 04/11/22 Lead Mechanical Engineer Relationship Specialty Start Date End Date Honorio Vasquez MD [address] [place] [address] PCP - General Family Medicine 04/11/22 Lead Mechanical Engineer Relationship Specialty Start Date End Date Honorio Vasquez MD [address] [place] [address] PCP - General Family Medicine 04/20/22 Lead Mechanical Engineer Relationship Specialty Start Date End Date Honorio Vasquez MD [address] [place] [address] PCP - General Family Medicine 04/20/22 Lead Mechanical Engineer Relationship Specialty Start Date End Date Honorio Vasquez MD [address] [place] [address] PCP - General Family Medicine 04/11/22 Lead Mechanical Engineer Relationship Specialty Start Date End Date No, Physician [facility] PCP - General 07/21/23 Lead Mechanical Engineer Relationship Specialty Start Date End Date Honorio Vasquez MD [address] [place] [address] PCP - [facility] 07/30/23 Honorio Vasquez MD [address] [place] [address] [facility] 04/08/24 Lead Mechanical Engineer Relationship Specialty Start Date End Date Honorio Vasquez MD [address] [place] [address] PCP - [facility] 07/30/23 Honorio Vasquez MD [address] [place] [address] PCP - [facility] 04/08/24 Lead Mechanical Engineer Relationship Specialty Start Date End Date Honorio Vasquez MD [address] [place] [address] PCP - [facility] 07/30/23 Lead Mechanical Engineer Relationship Specialty Start Date End Date Honorio Vasquez MD [address] [place] [address] PCP - [facility] 07/30/23 Lead Mechanical Engineer Relationship Specialty Start Date End Date Honorio Vasquez MD [address] [place] [address] PCP - [facility] 07/30/23 Honorio Vasquez MD [address] [place] [address] [facility] 04/08/24 Lead Mechanical Engineer Relationship Specialty Start Date End Date Honorio Vasquez MD [address] [place] [address] PCP - [facility] 07/30/23 Honorio Vasquez MD [address] [place] [address] [facility] 04/08/24 Lead Mechanical Engineer Relationship Specialty Start Date End Date Honorio Vasquez MD [address] [place] [address] PCP [facility] 07/30/23 Honorio Vasquez MD [address] [place] [address] PCP [facility] 04/08/24 Lead Mechanical Engineer Relationship Specialty Start Date End Date Honorio Vasquez MD [address] [place] [address] PCP - [facility] 07/30/23 Honorio Vasquez MD [address] [place] [phone] PCP - [facility] 04/08/24 FOR RECORDS PERTAINING TO PATIENTS WHO ARE OR HAVE BEEN ENROLLED IN A CHEMICAL DEPENDENCY/SUBSTANCEABUSE PROGRAM, SOME INFORMATION MAY BE OMITTED. This clinical summary was aggregated from multiple sources. Caution should be exercised in using it in the provision of clinical care. This summary normalizes information from multiple sources, and as a consequence, information in this document may materially change the coding, format and clinical context of patient data. In addition, data may be omitted in some cases. CLINICAL DECISIONS SHOULD BE BASED ON THE PRIMARY CLINICAL RECORDS. [facility] Medicine in Practice [facility]. provides no warranty or guarantee of the accuracy or completeness of information in this document.
== END 2024-09-05 12:46 | disposition home or self-care (01) ==
LOC: MRI 12:45
PROVIDERS: PCP Family Medicine; Visit Provider Nurse Practitioner Adult Health
DX: R29.2 Abnormal reflex (principal); R29.6 Repeated falls; R26.81 Unsteadiness on feet; M50.321 Other cervical disc degeneration at C4-C5 level; M50.322 Other cervical disc degeneration at C5-C6 level; M50.323 Other cervical disc degeneration at C6-C7 level
CPT/HCPCS: 70553; 72156; A9575

== ENCOUNTER 2025-05-21 19:28 | Emergency (ER) | payer OTHER, SELFPAY ==
[2025-05-21] VITALS (12 sets, daily range): BP systolic 120–127; BP diastolic 77–84; PULSE 93–122; TEMP 36.3; O2SAT 98–99; BMI 25.9
--- NOTE | 2025-05-21 19:48 | ECG_ITS ---
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 Measurements Intervals [place] Rate: 105 P: 69 [place]: 168 QRS: 101 QRSD: 76 T: 53 QT: 308 QTc: 369 Interpretive Statements 1120 Sinus tachycardia 7100 Abnormal right axis deviation 9140 abnormal rhythm ECG Compared to ECG 01/03/2021 22:25:59 Sinus rhythm no longer present Electronically Signed On 05-22-2025 7:49:51 EST by TESHA MORTENSEN M.D.
--- NOTE | 2025-05-21 19:48 | CT_ITS ---
The [address] [address] Patient Name: FRAN ELLIS MRN: [id number] date: 1980 Sex: F Assigned Patient Location: ER Current Patient Location: [facility] Accession/Order Number: [id number] Exam Date: 05/21/2025 20:13 Report Date: 05/21/2025 20:44 At the request of: LEATHA SALINAS Procedure: CT angio chest CTA chest CLINICAL DATA: Dizziness and tachycardia. TECHNIQUE: Intravenous contrast-enhanced CT angiography of the chest was performed. Axial, sagittal, coronal, and 3D-dimensional reconstructions were created and reviewed. These CT exams were performed using one or more of the following dose reduction techniques: Automated exposure control, adjustment of the mA and/or kV according to patient size, or use of iterative reconstruction technique. COMPARISON: None. FINDINGS: Chest: Mediastinum:Bovine arch. No findings suggest aortic dissection. No central lobar or segmental branch pulmonary artery emboli. No pericardial effusion. No pathologic mediastinal or hilar adenopathy. Lungs:Hypoventilatory/dependent groundglass changes. No airspace opacity effusion or pneumothorax. Abd: Unremarkable.[ Soft tissues/Bones: Minimal levocurvature lower thoracic spine. CT/CT angio chest IMPRESSION: Negative for acute cardiopulmonary process. No pulmonary embolism identified. Impression dictated by: Stiven Villalobos M.D. 05/21/2025 8:44 PM Dictation Location: [place] [address] Electronically authenticated by: [id number] Y Date: 05/21/2025 20:44
--- NOTE | 2025-05-21 19:48 | CT_ITS ---
The [address] [address] Patient Name: FRAN ELLIS MRN: [id number] date: 1980 Sex: F Assigned Patient Location: ER Current Patient Location: ED.MAIN Accession/Order Number: [id number] Exam Date: 05/21/2025 20:13 Report Date: 05/21/2025 20:40 At the request of: LEATHA SALINAS Procedure: CT head/brain wo con CT BRAIN WITHOUT CONTRAST: CLINICAL HISTORY: Dizziness COMPARISON: MRI 09/05/2024 TECHNIQUE: Contiguous axial unenhanced images were obtained through the brain. This CT exam was performed using one or more following dose reduction techniques: Automated exposure control, adjustment of the mA and/or kV according to patient size, or use of iterative reconstruction technique. FINDINGS: There is no evidence of midline shift, intra or extra-axial fluid collection, hemorrhage or CT evidence of acute large vascular distribution stroke. Visualized intraorbital contents appear unremarkable. Visualized paranasal sinuses are clear. The surrounding soft tissues are normal. CT/CT head/brain wo con IMPRESSION: NO ACUTE INTRACRANIAL ABNORMALITY. Impression dictated by: Stiven Villalobos M.D. 05/21/2025 8:40 PM Dictation Location: [place] [address] Electronically authenticated by: [id number] Y Date: 05/21/2025 20:40
--- NOTE | 2025-05-21 19:50 | ED.GENADUL1 ---
HPI HPI - General Adult General Chief complaint: Arrhythmia/Palpitations Stated complaint: HEART RATE HIGH/ SUGAR IS HIGH/ FEEL FAINT Time Seen by Provider: 05/21/25 19:34 Source: patient Mode of arrival: walk-in History of Present Illness HPI narrative: 44 year old female presents to the ED for tachycardia, feeling lightheaded. Onset was this evening. States she feels off. Denies fever, chills, [place], vision changes, CP, SOB. Denies recent travel or surgery. Reports chronic diarrhea. Denies abd pain, N/V. Also states she checked her blood sugar today and it was 150; she checked it about 1 hour after eating. Denies hx DM; states she checks her blood sugar periodically. Related Data Home Medications ?Medication ?Instructions ?Recorded ?Confirmed cetirizine 10 mg tablet 10 mg PO DAILY 11/11/23 05/21/25 cholecalciferol (vitamin D3) 10 400 unit PO DAILY 11/11/23 05/21/25 mcg (400 unit) tablet (Vitamin D3) dexlansoprazole 60 mg 60 mg PO DAILY 11/11/23 05/21/25 capsule,biphase delayed release diclofenac sodium 75 mg 75 mg PO Q12H 11/11/23 05/21/25 tablet,delayed release diphenoxylate-atropine 2.5 1 tab PO Q6H PRN diarrhea 11/11/23 05/21/25 mg-0.025 mg tablet epinephrine 0.3 mg/0.3 mL 0.3 mg subcut Q10M PRN anaphylaxis 11/11/23 05/21/25 injection, auto-injector hyoscyamine sulfate 0.125 mg tablet 0.125 mg PO Q4H PRN dyspepsia 11/11/23 05/21/25 midodrine 10 mg tablet 10 mg PO TID 11/11/23 05/21/25 omeprazole 40 mg capsule,delayed 40 mg PO DAILY 11/11/23 05/21/25 release ondansetron 4 mg disintegrating 4 mg PO Q6H PRN nausea and vomiting 11/11/23 05/21/25 tablet potassium chloride 20 mEq 20 meq PO DAILY 11/11/23 05/21/25 tablet,extended release(part/cryst) terbinafine HCl 250 mg tablet 250 mg PO DAILY 11/11/23 05/21/25 tizanidine 4 mg tablet 4 mg PO Q8H PRN muscle spasticity 11/11/23 05/21/25 venlafaxine 75 mg capsule,extended 75 mg PO DAILY 11/11/23 05/21/25 release 24 hr colestipol 1 gram tablet 1 g PO DAILY 05/21/25 05/21/25 furosemide 40 mg tablet 40 mg PO DAILY 05/21/25 05/21/25 sulfasalazine 500 mg tablet 500 mg PO Q6H 05/21/25 05/21/25 tacrolimus 0.1 % topical ointment 1 applic topical Q12H 05/21/25 05/21/25 topiramate 25 mg tablet 25 mg PO Q12H 05/21/25 05/21/25 Allergies Allergy/AdvReac Type Severity Reaction Status Date / Time Penicillins Allergy Mild Rash Verified 05/21/25 19:33 Review of Systems ROS Constitutional Denies: fever or chills Eyes Denies: change in vision Ears, nose, mouth, and throat Denies: neck pain Cardiovascular Reports: lightheadedness; Denies: chest pain, palpitations or swelling of feet/ankles Respiratory Denies: shortness of breath Gastrointestinal Reports: diarrhea; Denies: abdominal pain, nausea or vomiting Genitourinary Denies: painful urination Musculoskeletal Denies: back pain or neck pain Neurological Denies: headache or dizziness PFSH PFSH Social History Little interest or pleasure in doing things: not at all Feeling down, depressed, or hopeless: not at all Exam Constitutional Vital Signs, click to edit/add: Last Vital Signs Temp 97.4 F L 05/21/25 19:33 Pulse 93 H 05/21/25 20:40 Resp 13 05/21/25 20:40 BP 127/77 05/21/25 19:56 Pulse Ox 98 05/21/25 19:34 O2 Del Method Room Air 05/21/25 19:33 Common normals: no apparent distress and oriented x3 General appearance: cooperative HENMT Common normals: moist oral mucous membranes Eye Common normals: PERRL, EOMs intact bilaterally, conjunctivae normal and no scleral icterus Neck & C-Spine Common normals: supple Chest Chest: symmetrical chest wall rise Respiratory Common normals: normal respiratory effort and clear to auscultation bilaterally Effort & inspection: able to speak in complete sentences and symmetric chest movement Cardio Common normals: regular rhythm Rate: tachycardic Neuro Common normals: oriented x3, CN's II-XII intact bilaterally, moves all extremities and no focal motor deficits Sensorium/orientation: awake and alert Speech: speech normal Gait (neuro): normal gait Course Vital Signs Vital signs: Vital Signs Temperature 97.4 F L 05/21/25 19:33 Pulse Rate 120 H 05/21/25 19:33 Respiratory Rate 20 05/21/25 19:33 Blood Pressure 125/84 05/21/25 19:33 Pulse Oximetry 99 05/21/25 19:33 Oxygen Delivery Method Room Air 05/21/25 19:33 Temperature 97.4 F L 05/21/25 19:33 Pulse Rate 93 H 05/21/25 20:40 Respiratory Rate 13 05/21/25 20:40 Blood Pressure 127/77 05/21/25 19:56 Pulse Oximetry 98 05/21/25 19:34 Oxygen Delivery Method Room Air 05/21/25 19:33 Medical Decision Making MDM Narrative Medical decision making narrative: The patient presented with a HR of 120-130; sinus rhythm. She was given IV fluids with improvement of her HR. CT chest and CT head were negative for acute findings. CBC, CMP, and troponin were unremarkable. Her blood sugar was also unremarkable here. Findings were discussed. Follow up with pcp for a recheck, further evaluation and treatment. Return to the ED for worsening symptoms. Medical Records Medical records reviewed: Yes I reviewed the patient's medical records Lab Data Lab results reviewed: Yes I reviewed the patient's lab results Labs: Lab Results 05/21/25 05/21/25 05/21/25 Range/Units 19:37 19:55 20:45 WBC 8.6 (4.0-11.0) 10^3/uL RBC 4.77 (4.20-5.40) 10^6/uL Hgb 15.7 (12.0-16.0) g/dL Hct 44.9 (36.0-48.0) % MCV 94.1 (81.0-99.0) fL MCH 32.9 (26.7-34.0) pg MCHC 35.0 (29.9-35.2) g/dL RDW 11.9 (11.0-15.0) % Plt Count 162 (150-450) 10^3/uL MPV 11.5 (9.5-13.5) fL Neut % (Auto) 58.9 (43.0-75.0) % Lymph % (Auto) 29.4 (20.5-60.0) % [place] % (Auto) 9.4 (1.7-12.0) % Eos % (Auto) 1.2 (0.9-7.0) % Baso % (Auto) 0.6 (0.2-2.0) % Neut # (Auto) 5.1 (1.4-6.5) 10^3/uL Lymph # (Auto) 2.5 (1.2-3.8) 10^3/uL [place] # (Auto) 0.8 (0.3-0.8) 10^3/uL Eos # (Auto) 0.1 (0.0-0.7) 10^3/uL Baso # (Auto) 0.1 (0.0-0.1) 10^3/uL Abs Immat Gran (auto) 0.04 H (0.00-0.03) 10^3/uL Imm/Tot Granulo (auto) 0.5 (0.0-0.5) % Sodium 139 (136-145) mmol/L Potassium 3.3 L (3.5-5.1) mmol/L Chloride 105 (98-107) mmol/L Carbon Dioxide 27.8 (21.0-32.0) mmol/L Anion Gap 9.5 BUN 15.0 (7.0-18.0) mg/dL Creatinine 0.94 (0.55-1.02) mg/dL Est GFR ( Amer) >60 (>=60 mL/min/1.73m^2) Est GFR (Non-Af Amer) >60 (>=60 mL/min/1.73m^2) BUN/Creatinine Ratio 16.0 Glucose 124 H (74-106) mg/dL Calcium 8.8 (8.5-10.1) mg/dL Total Bilirubin 0.2 (0.2-1.0) mg/dL AST 15 (15-37) U/L ALT 29 (14-59) U/L Alkaline Phosphatase 129 H (46-116) U/L Troponin I High Sens 5.5 (4.0-51.3) pg/mL Total Protein 6.5 (6.4-8.2) g/dL Albumin 3.6 (3.4-5.0) g/dL Globulin 2.9 g/dL Albumin/Globulin Ratio 1.2 POC Glucose 115 H 102 (74-106) mg/dL Imaging Data CT scan - head: Attestation: I have reviewed the pertinent imaging results. Radiologist's impression: ITS Impressions Chest CTA 05/21/25 19:48 IMPRESSION: Negative for acute cardiopulmonary process. No pulmonary embolism identified. Impression dictated by: Stiven Villalobos M.D. 05/21/2025 8:44 PM Dictation Location: [employer] Electronically authenticated by: [id number] Y Date: 05/21/2025 20:[address] 05/21/25 19:48 IMPRESSION: NO ACUTE INTRACRANIAL ABNORMALITY. Impression dictated by: Stiven Villalobos M.D. 05/21/2025 8:40 PM Dictation Location: [employer] Electronically authenticated by: [id number] Y Date: 05/21/2025 20:40 ECG Data Attestation: ?I have reviewed the pertinent ECG results. (EKG was reviewed by the attending physician. Is showed sinus tachycardia at a rate of 105. No STEMI.) Interpretation: Measurements Intervals [place] Rate: 105 P: 69 MI: 168 QRS: 101 QRSD: 76 T: 53 QT: 308 QTc: 369 Interpretive Statements 1120 Sinus tachycardia 7100 Abnormal right axis deviation 9140 abnormal rhythm ECG No previous ECG available for comparison Discharge Plan Discharge Chief Complaint: Arrhythmia/Palpitations Clinical Impression: Sinus tachycardia Patient Disposition: Home, Self-Care Time of Disposition Decision: 20:52 Condition: Good Mode of Transportation: Private Vehicle Prescriptions / Home Meds: No Action colestipol 1 gram tablet 1 g PO DAILY furosemide 40 mg tablet 40 mg PO DAILY sulfasalazine 500 mg tablet 500 mg PO Q6H tacrolimus 0.1 % ointment 1 applic TOPICAL Q12H topiramate 25 mg tablet 25 mg PO Q12H cetirizine 10 mg tablet 10 mg PO DAILY cholecalciferol (vitamin D3) [Vitamin D3] 10 mcg (400 unit) tablet 400 unit PO DAILY dexlansoprazole 60 mg capsule,biphase delayed releas 60 mg PO DAILY diclofenac sodium 75 mg tablet,delayed release (DR/EC) 75 mg PO Q12H diphenoxylate-atropine 2.5-0.025 mg tablet 1 tab PO Q6H PRN (Reason: diarrhea) epinephrine 0.3 mg/0.3 mL auto-injector 0.3 mg subcut Q10M PRN (Reason: anaphylaxis) hyoscyamine sulfate 0.125 mg tablet 0.125 mg PO Q4H PRN (Reason: dyspepsia) midodrine 10 mg tablet 10 mg PO TID omeprazole 40 mg capsule,delayed release(DR/EC) 40 mg PO DAILY ondansetron 4 mg tablet,disintegrating 4 mg PO Q6H PRN (Reason: nausea and vomiting) potassium chloride 20 mEq tablet,ER particles/crystals 20 meq PO DAILY terbinafine HCl 250 mg tablet 250 mg PO DAILY tizanidine 4 mg tablet 4 mg PO Q8H PRN (Reason: muscle spasticity) venlafaxine 75 mg capsule,extended release 24hr 75 mg PO DAILY Print Language: Peruvian Instructions: Tachycardia (ED) Additional Instructions: Return to the ED for worsening symptoms. Referrals: Honorio Eaton MD [Primary Care Provider, Family Practice] - 1 week
[2025-05-21 20:15] LABS: Hematocrit 44.9 % (36.0-48.0); Hemoglobin 15.7 g/dL (12.0-16.0); Immature Granulocytes Abs Auto 0.04 10^3/uL (0.00-0.03); Immature Granulocytes Pct Auto 0.5 % (0.0-0.5); Lymphocytes Absolute Auto 2.5 10^3/uL (1.2-3.8); Mean Corpuscular HGB Conc 35.0 g/dL (29.9-35.2); Mean Corpuscular Hemoglobin 32.9 pg (26.7-34.0); Mean Corpuscular Volume 94.1 fL (81.0-99.0); Platelet Count 162 10^3/uL (150-450); Red Blood Count 4.77 10^6/uL (4.20-5.40); White Blood Count 8.6 10^3/uL (4.0-11.0)
[2025-05-21] MEDS: 0.9 % SODIUM CHLORIDE 1,000 ML 1000 ML IV (20:29)
--- OUTSIDE RECORDS SUMMARY | 2025-05-21 20:32 | XMS_ITS | Patient Health Record ---
Author Organization [facility] Address [address] [place] [address] Care Team Providers Care Meat Pumper Name Role Phone Honorio Eaton Primary Care Provider Alexys Hall Unavailable [phone] Alexys Mcdonald MD Unavailable Unavailable Allergies Allergen (clinical drug ingredient) Drug/Non Drug Allergy documented on EMR Reaction Allergy Type Onset Date Status Latex Latex (uncoded) rash Allergy ActiveTomatoes (uncoded)anaphylaxisAllergyActivepenicillinhivesDrug Allergy Active Reason For Referral No Information Medications Medication SIG (Take, Route, Frequency, Duration) Notes Start Date End Date Status None Active Social History Tobacco Use: Social History Observation Description Date Details (start date - stop date) Current Smoker NA - NA Smoking History Question Answer Notes Smoking Status Current Smoker How much do you smoke5 or lessHow soon after you wake up do you smoke your first cigarette?6 - 30 min Problems Problem Type SNOMED Code ICD Code Onset Dates Problem Status W/U Status Risk Notes Problem Cervical radiculopathy (00082703) Cervica l radiculopathy (M54.12) ActiveconfirmedProblemPain in wrist (48000384)Left wrist pain (M25.532)Active confirmedProblemArthralgia of the upper arm (917790272)Left elbow pain (M25.522) ActiveconfirmedProblemNeck sprain (951816150)Strain of muscle, fascia and tendon at neck level, initial encounter (S16.1XXA)ActiveconfirmedProblemStrain of neck muscle (988823817)Strain of muscle, fascia and tendon at neck level, subsequent encounter (S16.1XXD)ActiveconfirmedProblemPain in limb (51639846)Pain, arm, right (M79.601)ActiveconfirmedProblemRadial styloid tenosynovitis (87878438)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)ActiveconfirmedProblem Displacement of cervical intervertebral disc without myelopathy (82040947) Bulging of cervical intervertebral disc (M50.20)Activeconfirmed Plan Of Treatment No Information Insurance Providers Payer Name Payer Address Payer Phone Subscriber Number Group Number Insured Name Patient Relationship to Insured Coverage Start Date Coverage End Date Medicaid [place] [place] [address] [place] [address] [id number] Jose J ELLIS - patient is the insured[facility] [address] [place], [place] [id number], ALICIASelf - patient is the insured Medical (General) History Medical History History ICD Code Cancer Type Yes Heart Attack: YesGI Problems: YesDepression: YesAnxiety: YesLatex Allergy Yes Drug Allergies: YesSurgical History Surgery Date(Month/Year) Ovarian cyst removal Gallbladder removalTotal hysterectomyC-SectionHernia repair surgery
--- OUTSIDE RECORDS SUMMARY | 2025-05-21 20:32 | XMS_ITS | Encounter Summary ---
Author Organization [facility] Address [address] [place] [address] Care Team Providers Care Inlayer Name Role Phone Anjana Vasquez MD Primary Care Provider [phone] Anjana Vasquez MD Unavailable Anjana Vasquez MD Primary Care Provider [phone] Encounter Details DateTypeDepartmentCare Team (Latest Contact Info)Yzrktpypnep15/13/2024Clinisync Result Encounter [facility] External [facility] Unsolicited Anjana Vasquez MD [address] [place] [address] Social History Tobacco UseTypesPacks/DayYears UsedDateSmoking Tobacco: Every KxjPgiaxncfcdV7291 Health LiteracyAnswerDate RecordedHow often do you need to have someone help you when you read instructions, pamphlets, or other written material from your doctor or pharmacy?Never02/25/2025Humiliation, Afraid, Rape, and Kick questionnaireAnswerDate RecordedWithin the last year, have you been afraid of your partner or ex-partner?No02/25/2025Within the last year, have you been humiliated or emotionally abused in other ways by your partner or ex-partner?No 02/25/2025Within the last year, have you been kicked, hit, slapped, or otherwise physically hurt by your partner or ex-partner?No02/25/2025Within the last year, have you been raped or forced to have any kind of sexual activity by your part ner or ex-partner?No02/25/2025Social Connection and Isolation PanelAnswerDate RecordedIn a typical week, how many times do you talk on the phone with family, friends, or neighbors?More than three times a week02/25/2025How often do you get together with friends or relatives?More than three times a week02/25/2025How often do you attend lutheran or moravian services?More than 4 times per year 02/25/2025Do you belong to any clubs or organizations such as lutheran groups, unions, fraternal or athletic groups, or school groups?No02/25/2025How often do you attend meetings of the clubs or organizations you belong to?Never02/25/2025 Are you , , , , never , or living with a partner?Zfpljgnop18/20/2025UDIT-CAnswerDate RecordedQ1: How often do you have a drink containing alcohol?Never02/25/2025Q2: How many drinks containing alcohol do you have on a typical day when you are drinking?Patient does not drink 02/25/2025Q3: How often do you have six or more drinks on one occasion?Never 02/25/2025Overall Financial Resource Strain (CARDIA)AnswerDate RecordedHow hard is it for you to pay for the very basics like food, housing, medical care, and heating?Not hard at all02/25/2025[facility] [place] [facility] - Occupational Stress QuestionnaireAnswerDate RecordedDo you feel stress - tense, restless, nervous, or anxious, or unable to sleep at night because yourmind is troubled all the time - these days?To some twjgkn0702/25/2025Exercise Vital Sign AnswerDate RecordedOn average, how many days per week do you engage in moderate to strenuous exercise (like a brisk walk)?3 days02/25/2025On average, how many minutes do you engage in exercise at this level?10 min02/25/2025Hunger Vital SignAnswerDate RecordedWithin the past 12 months, you worried that your food would run out before you got the money to buymore.Never true02/25/2025Within the past 12 months, the food you bought just didn't last and you didn't have money to get more.Never true02/25/2025PRAPARE - TransportationAnswerDate RecordedIn the past 12 months, has lack of transportation kept you from medical appointments or from getting medications?No02/25/2025In the past 12 months, has lack of transportation kept you from meetings, work, or from getting things needed for daily living?No02/25/2025Housing Stability Vital SignAnswerDate RecordedIn the last 12 months, was there a time when you were not able to pay the mortgage or rent on time?No02/25/2025Number of Times Moved in the Last Year Not on file02/25/2025t any time in the past 12 months, were you homeless or living in a custodial (including now)?No02/25/2025CommentsUnknownSex and Gender InformationValueDate RecordedSex Assigned at BirthNot on fileLegal Sex Ltuxed2309/20/2022 6:45 PM EDTGender IdentityNot on fileSexual OrientationNot on filedocumented as of this encounter Functional Status * AUDIT-C ScoreAnswerDate of RfvbkvoytlBpmpzn930/20/2025 11:02 AM EDTMychart, Generic * Q1: How often do you have a drink containing alcohol?AnswerDate of Assessment JjvhklIkcpo65/20/2025 11:02 AM EDElis, Generic * Q2: How many drinks containing alcohol do you have on a typical day when you are drinking?AnswerDate of AssessmentAuthorPatient does not drink02/25/2025 11:02 AM EDTMychart, Generic * Q3: How often do you have six or more drinks on one occasion?AnswerDate of PqlsnofyzsTzbapmPaosc05/20/2025 11:02 AM EDTMychart, Generic documented as of this encounter Plan of Treatment DateTypeDepartmentCare Team (Latest Contact Info)Oyhglzspbno08/17/2025 3:00 PM ESTOffice Visit [facility] [address] [place] [address] Keila Duke, JOINT CREASER-SATELLITE TELEVISION INSTALLER [address] [place] [address] documented as of this encounter Procedures Procedure NamePriorityDate/TimeAssociated DiagnosisCommentsXR RIBS BILATERAL MIN 4 VIEWS W PA CHEST 9095631/ 8:05 AM EDT documented in this encounter Results * XR RIBS BILATERAL MIN 4 VIEWS W PA CHEST 62557 (02/19/2024 8:05 AM EDT) Anatomical RegionLateralityModalityRadiographic ImagingSpecimen (Source) Anatomical Location / LateralityCollection Method / VolumeCollection Time Received Time02/19/2024 8:05 AM EDT Narrative 02/19/2024 8:08 AM EDT [facility] ?[address] ? [place], [place] [address] ?XRay Report ? Signed ? Patient: PINE,OLGA L ? MR#: [id number] ?? : 1980 ?Acct:[id number] ?? Age/Sex: 43 / F ?ADM Date: 02/15/24 ?? Loc: LAB ? Attending Dr: Anjana Vasquez M.D. ? Ordering Physician: Anjana Vasquez M.D. ?? Date of Service: 02/15/24 ?? Procedure(s): XR ribs BI min 4V w CXR1V ?? Accession Number(s): [id number] ? cc: Anjana Vasquez M.D. ? [facility] ? [address] ? [place] [address] ? Patient Name: ?? OLGA L PINE ? MRN: [facility]:[id number] ? date: 1980 ?Sex: F ?? Assigned Patient Location: LAB ?? Current Patient Location: ? Accession/Order Number: [id number] ?? Exam Date: 02/15/2024 ??13:52 ?Report Date: 02/19/2024 ??08:05 ? At the request of: ?? ANJANA ??PEDRO ? Procedure: ??XR ribs BI min 4V w CXR1V ? EXAMINATION: XR ribs BI min 4V w CXR1V ? HISTORY: Rib Pain R07.81 ? COMPARISON: 01/03/2021 ? FINDINGS: ?? LUNGS: No significant pulmonary parenchymal abnormalities. ?? PLEURA: No pneumothorax, effusion, or pleural thickening. ?? MEDIASTINUM: No visible mass or adenopathy. ?? CARDIAC: No cardiomegaly or cardiac silhouette abnormality. ?? RIBS: No acute rib fracture ?? OTHER: Negative. ? XR/XR ribs BI min 4V w CXR1V ?? IMPRESSION: ? Clear lungs ? No acute rib fracture ? Electronically authenticated by: EMILY ??KIMBERLY ?? Date: 02/19/2024 ??08:05 ? Dictated By: ?Emily Harris M.D. ? Signed By: ?02/19/24 0808 ? DD/ 0805 ? TD/TT: ? Interior Design Instructor: Procedure Note Radiology, Radiologist, MD - 02/19/2024 [place] [address] XRay Report Signed Patient: OLGA HERNANDEZ LMR#: [id number] : 1980Acct:[id number] Age/Sex: 43 / FADM Date: 02/15/24 Loc: LAB Attending Dr: Anjana Vasquez M.D. Ordering Physician: Anjana Vasquez M.D. Date of Service: 02/15/24 Procedure(s): XR ribs BI min 4V w CXR1V Accession Number(s): [id number] cc: Anjana Vasquez M.D. [facility] [place] [id number] Patient Name: OLGA HERNANDEZ MRN: [facility]:[id number] date: 1980 Sex: F Assigned Patient Location: LAB Current Patient Location: Accession/Order Number: [id number] Exam Date: 02/15/2024 13:52 Report Date: 02/19/2024 08:05 At the request of: ANJANA VASQUEZ Procedure: XR ribs BI min 4V w CXR1V EXAMINATION: XR ribs BI min 4V w CXR1V HISTORY: Rib Pain R07.81 COMPARISON: 01/03/2021 FINDINGS: LUNGS: No significant pulmonary parenchymal abnormalities. PLEURA: No pneumothorax, effusion, or pleural thickening. MEDIASTINUM: No visible mass or adenopathy. CARDIAC: No cardiomegaly or cardiac silhouette abnormality. RIBS: No acute rib fracture OTHER: Negative. XR/XR ribs BI min 4V w CXR1V IMPRESSION: Clear lungs No acute rib fracture Electronically authenticated by: EMILY HARRIS Date: 02/19/2024 08:05 Dictated By: Emily Harris M.D. Signed By:02/19/24807 DD/ 4 TD/TT: Interior Design Instructor: Authorizing ProviderResult TypeResult StatusMarc Pedro EVANS XR PROCEDURES Final Result documented in this encounter Visit Diagnoses Not on filedocumented in this encounter Care Teams Team MemberRelationshipSpecialtyStart DateEnd Date Anjana Vasquez [facility] Anjana Vasquez MD [address] [place] [address] PCP - [facility]04/08/24 Anjana Vasquez MD [address] [place] [address] [facility]04/13/25documented as of this encounter
--- OUTSIDE RECORDS SUMMARY | 2025-05-21 20:32 | XMS_ITS | Clinical Summary ---
Author Organization [facility] 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 Name Role Phone Honorio Eaton MD Primary Care Provider + Allergies Active AllergyReactionsCriticalityNoted DateCommentsAmoxicillinOther (See Comments)09/29/2016 Nausea and vomiting LatexOther (See Comments),EtlcUti0607/23/20130493Wkjktecpwyv14/29/2018Tomato Anaphylaxis,Other (See Comments)High04/02/2014 Medications MedicationSigDispense QuantityRefillsLast FilledStart DateEnd DateStatus triamcinolone (ARISTOCORT) 0.5 % cream triamcinolone acetonide 0.5 % topical creamActive hyoscyamine (ANASPAZ;LEVSIN) 125 MCG tablet Take 1 tablet by mouth every 4 hours as needed for CrampingActive diphenoxylate-atropine (LOMOTIL) 2.5-0.025 MG per tablet Take 1 tablet by mouth 4 times daily as needed for Diarrhea.Active vitamin D3 (CHOLECALCIFEROL) 10 MCG (400 UNIT) TABS tablet Take 1 tablet by mouth dailyActive midodrine (PROAMATINE) 2.5 MG tablet Take 1 tablet by mouth 3 times dailyActive ondansetron (ZOFRAN) 4 MG tablet Take 1 tablet by mouth every 8 hours as needed for Nausea or VomitingActive buPROPion (WELLBUTRIN SR) 150 MG extended release tablet Take 1 tablet by mouth daily12/06/2021ctive dexlansoprazole (DEXILANT) 60 MG CPDR delayed release capsule Take 1 capsule by mouth daily05/01/2023Active lidocaine viscous hcl (XYLOCAINE) 2 % SOLN solution Take 5 mLs by mouth every 3 hours as needed for Irritation 60 mL 08/05/2023ctive ibuprofen (IBU) 800 MG tablet Take 1 tablet by mouth every 8 hours as needed for Pain 20 tablet 08/05/2023ctive Social History Tobacco UseTypesPacks/DayYears UsedDateSmoking Tobacco: Every DayCigarettes0 Smokeless Tobacco: Never Tobacco Cessation:Ready to Q uit: Not Asked; Counseling Given: Not Answered Alcohol UseStandard Drinks/WeekCommentsNot Currently0 (1 standard drink = 0.6 oz pure alcohol)AUDIT-CAnswerDate RecordedQ1: How often do you have a drink containing alcohol?Never08/05/2023Q2: How many drinks containing alcohol do you have on a typical day when you are drinking?Patient does not drink08/05/2023Q3: How often do you have six or more drinks on one occasion?Never08/05/2023 Interpersonal Safety Domain Source: IP Abuse ScreeningAnswerDate RecordedRead- Only, Retired: Physical KkqzvUblpgl98/21/2023Read-Only, Retired: Verbal Abuse Ihqbbo1212/27/2022Read-Only, Retired: Emotional yhaypNyboia30/21/2023Read-Only, Retired: Financial BtsvhBsxbsa56/21/2023Read-Only, Retired: Sexual abuseDenies 12/27/2022CommentsNoSex and Gender InformationValueDate RecordedSex Assigned at BirthNot on fileLegal LytUlfxhj10/10/2013 10:58 AM ESTGender IdentityNot on fileSexual OrientationNot on file Last Filed Vital Signs Vital SignReadingTime TakenCommentsBlood Akdidgcc082/75008/05/2023 2:15 PM EST Kdzzi762108/05/2023 2:15 PM CIOFgkldjsqbhq21.6 ??C (97.9 ??F)08/05/2023 2:15 PM ESTRespiratory Karq356608/05/2023 2:50 PM ESTOxygen Abadfezujl151%08/05/2023 2:15 PM ESTInhaled Oxygen Concentration--Jfqftk15.8 kg (145 lb)08/05/2023 2:15 PM EST Hsbnyj798.3 cm (5' 11 )08/05/2023 2:15 PM ESTBody Mass Index20.22008/05/2023 2:15 PM EST Plan of Treatment Health MaintenanceDue DateLast DoneCommentsDepression Bdibiw4507/26/1992Varicella vaccine (1 of 2 - 13+ 2-dose series)1993HIV juopjy6507/26/1995Hepatitis C cavlxz6107/26/1998DTaP/Tdap/Td vaccine (1 - Tdap)1999Hepatitis B vaccine (1 of 3 - 19+ 3-dose series)1999Pneumococcal 0-49 years Vaccine (1 of 2 - PCV)1999Breast cancer lsldpw859089Fozfhe34/18/2021Flu vaccine (#1) 5COVID-19 Vaccine (1 - season)2025HPV vaccine (No Doses Required)CompletedHepatitis A vaccineAged OutNo longer eligible based on patient's age to complete this topicHib vaccineAged OutNo longer eligible based on patient's age to complete this topicMeningococcal (ACWY) vaccineAged OutNo longer eligible based on patient's age to complete this topicMeningococcal B vaccineAged OutNo longer eligible based on patient's age to complete this topic Polio vaccineAged OutNo longer eligible based on patient's age to complete this topic Insurance Care Teams Team MemberRelationshipSpecialtyStart DateEnd Date Honorio Eaton MD [address] [place] [address] PCP - GeneralFamily Omiyofzm13/13/22
--- OUTSIDE RECORDS SUMMARY | 2025-05-21 20:33 | XMS_ITS | Clinical Summary ---
Author Organization [facility] Address [facility] 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 Name Role Phone Honorio Eaton MD Primary Care Provider [phone] Allergies Active AllergyReactionsCriticalityNoted DateCommentsAmoxicillinHives,RashLow 06/18/20173910JyjheEjauo59/11/2017 Medications MedicationSigDispense QuantityRefillsLast FilledStart DateEnd DateStatus eluxadoline (VIBERZI) 75 mg tablet Take 75 mg by mouth 2 (two) times a day.Active ondansetron (ZOFRAN) 4 mg tablet Take 4 mg by mouth every 8 (eight) hours as needed for nausea or vomiting.Active polyethylene glycol (GLYCOLAX) 17 gram/dose powder Take 17 g daily until stools are soft and then as needed 510 g 04/14/2018Active Additional Information Patient not taking.Reported on 11/15/2021 cholecalciferol, vitamin D3, 400 units tablet Take 400 Units by mouth in the morning.Active diphenoxylate-atropine (LOMOTIL) 2.5-0.025 mg per tablet diphenoxylate-atropine 2.5 mg-0.025 mg tabletActive hyoscyamine (ANASPAZ,LEVSIN) 0.125 mg tablet hyoscyamine sulfate 0.125 mg tabletActive midodrine (PROAMATINE) 2.5 mg tablet Take 2.5 mg by mouth.Active predniSONE (DELTASONE) 10 mg tablet Take 10 mg by mouth.Active terbinafine (LamISIL) 250 mg tablet daily.Active triamcinolone (KENALOG) 0.5 % cream triamcinolone acetonide 0.5 % topical creamActive Active Problems ProblemNoted DateDiagnosed MmqqMaxzmutcnt64/10/2022 Overview (11/15/2021): palpitations. not treated, no meds IBS (irritable bowel syndrome)7794Soic98/10/1081Oidjyxwq13/10/2022 Overview (11/15/2021): last one was 2010 Family History Medical HistoryRelationNameCommentsStrokeFatherNo Known ProblemsMotherProstate cancerPaternal UncleRelationNameStatusCommentsBrotherAliveFatherDeceasedMother AlivePaternal UncleDeceasedSisterAlive Social History Tobacco UseTypesPacks/DayYears UsedDateSmoking Tobacco: Every DayCigarettes Smokeless Tobacco: NeverAlcohol UseStandard Drinks/WeekCommentsNo0 (1 standard drink = 0.6 oz pure alcohol)ChildcareAnswerDate RecordedChildcareUnknown 12/09/2018EmploymentAnswerDate RqtlwlqtPbppwepfodTuvhipx18/03/2019Hunger ScreeningAnswerDate RecordedWithin the past 12 months we worried whether our food would run out before we got money to buy more.Never True06/23/2023Within the past 12 months the food we bought just didn't last and we didn't have money to get more.Never True3Purpose - LifeAnswerDate RecordedPurpose and direction in xxjeQbdcpsq98/11/2021CommentsNoSex and Gender Information ValueDate RecordedSex Assigned at BirthNot on fileLegal KopPgjnug39/06/2015 12:13 PM EDTGender IdentityNot on fileSexual OrientationNot on file Last Filed Vital Signs Vital SignReadingTime TakenCommentsBlood Lxfwaltu787/6606/23/2023 12:52 PM EST Zovyv904406/23/2023 12:52 PM QEHWygwnkrvzxa60.6 ??C (97.9 ??F)06/23/2023 12:52 PM ESTRespiratory Ixwu477908/24/2022 12:52 PM ESTOxygen Tdgbbaptte120%06/23/2023 12:52 PM ESTInhaled Oxygen Concentration--Hthuhq20.5 kg (151 lb)06/23/2023 12:52 PM QNSXmhhvr902.8 cm (5' 10 )06/23/2023 12:52 PM ESTBody Mass Index21.67 06/23/2023 12:52 PM EST Plan of Treatment Health MaintenanceDue DateLast DoneCommentsDepression Yywgogfhb07/18/1993 DTaP,Tdap and Td Vaccines (1 - Tdap)1999Adult BMI Fuwsjxlyf24/16/2024 06/23/2023Tobacco Jivxkmehg91Influenza Fojmwvm2503/09/2025 Medical Devices Not on file Insurance Care Teams Team MemberRelationshipSpecialtyStart DateEnd Date Honorio Eaton MD PCP - [facility]12/05/16
--- OUTSIDE RECORDS SUMMARY | 2025-05-21 20:33 | XMS_ITS | Clinical Summary ---
Author Organization [facility] Address [address] [place] [address] Care Team Providers Care Floor Press Operator Name Role Phone Honorio Eaton MD Unavailable Honorio Eaton MD Primary Care Provider [phone] Allergies Active AllergyReactionsCriticalityNoted DateCommentsAmoxicillinGI intolerance 08/01/2023 Nausea and vomiting ZghnuFlhxVox46/24/5133ShgmpsledpnShelm89/25/2025TomatoAnaphylaxis,UnknownHigh 04/02/2014 Other Reaction(s): Other (See Comments) Medications MedicationSigDispense QuantityRefillsLast FilledStart DateEnd DateStatus Refresh Optive Advanced 0.5-1-0.5 % solution Administer 1 drop into affected eye(s) as needed in the morning and 1 drop as needed at noon and 1 drop as needed in the evening (as needed for dry eye up to 5 days).06/23/2023ctive EPINEPHrine (Epipen) 0.3 MG/0.3ML injection syringe Inject 1 Syringe as directed 1 (one) time02/20/2023ctive olopatadine (Patanol) 0.1 % ophthalmic solution Administer 1 drop into both eyes in the morning and 1 drop before bedtime. 06/23/2023ctive omeprazole (PriLOSEC) [address] capsule Indications:Gastroesophageal reflux disease without esophagitisTake 1 capsule (40 mg) by mouth in the morning and 1 capsule (40 mg) before bedtime. 60 capsule ctive potassium chloride CR (Klor-Con M20) 20 MEQ ER tablet Indications:HypokalemiaTake 1 tablet (20 mEq) by mouth Daily Do not crush or chew. 30 tablet 503/14/2024Active Cholecalciferol (VIT D3) 10 MCG (400 UNIT) tablet Indications:Vitamin D deficiencyTake 1 tablet (10 mcg) by mouth Daily 30 tablet ctive hyoscyamine (Anaspaz,Levsin) 0.125 MG tablet Indications:Irritable bowel syndrome with diarrheaTAKE 1 TABLET BY MOUTH EVERY 4 HOURS NEEDED *MUST LAST 30 DAYS* 120 tablet 4Active ketorolac (Toradol) 10 MG tablet 06/16/2024ctive SUMAtriptan (Imitrex) 100 MG tablet Indications:Migraine without aura and without status migrainosus, not intractableTake 1 tablet (100 mg) by mouth 1 (one) time if needed for migraine (november repeat x1) 9 tablet 5Active midodrine (Proamatine) 10 MG tablet Indications:Syncope and collapseTAKE 1 TABLET BY MOUTH THREE TIMES DAILY 90 tablet 5Active fluticasone (Flonase) 50 MCG/ACT nasal spray Indications:Chronic rhinosinusitisinstill 1-2 sprays IN EACH NOSTRIL DAILY *shake gently, BEFORE first use-prime pump, clean tip after use 16 g 5Active cetirizine (ZyrTEC) 10 MG tablet Indications:Chronic rhinosinusitisTake 1 tablet (10 mg) by mouth Daily 30 tablet 5Active topiramate (Topamax) 25 MG tablet Indications:Migraine without aura and without status migrainosus, not intractableTake 1 tablet (25 mg) by mouth in the morning and 1 tablet (25 mg) before bedtime. 60 tablet 6Active cyclobenzaprine (Flexeril) 10 MG tablet Indications:Migraine without aura and without status migrainosus, not intractableTake 1 tablet (10 mg) by mouth at bedtime 30 tablet 6Active pramipexole (Mirapex) 0.25 MG tablet Indications:Restless leg syndromeTAKE 1 TABLET BY MOUTH AT BEDTIME 30 tablet 5Active tacrolimus (Protopic) 0.1 % ointment Indications:Nummular dermatitisAPPLY TO THE AFFECTED AREA TWICE DAILY 60 g 5Active ondansetron ODT (Zofran-ODT) 4 MG disintegrating tablet Indications:Drug induced acute pancreatitis without necrosis or infection ([facility])Take 1 tablet (4 mg) by mouth every 6 (six) hours if needed for nausea or vomiting 30 tablet 5Active ibuprofen 800 MG tablet Indications:Dental abscessTake 1 tablet (800 mg) by mouth every 8 (eight) hours if needed for mild pain or moderate pain 90 tablet 5Active diphenoxylate-atropine (Lomotil) 2.5-0.025 MG tablet Indications:Irritable bowel syndrome with diarrheaTake 2 tablets by mouth 4 (four) times a day as needed for diarrhea 120 tablet 505Active sulfaSALAzine (Azulfidine) 500 MG tablet Indications:ColitisTake 1 tablet (500 mg) by mouth in the morning and 1 tablet (500 mg) at noon and 1 tablet (500 mg) in the evening and 1 tablet (500 mg) before bedtime. 120 tablet 5Active furosemide (Lasix) 40 MG tablet Indications:Varicose veins of both lower extremities with painTake 1 tablet (40 mg) by mouth Daily as needed (edema) 30 tablet 505Active potassium chloride CR (K-Tab) 20 MEQ ER tablet Indications:Varicose veins of both lower extremities with painTake 1 tablet (20 mEq) by mouth Daily as needed (Edema) Do not crush, chew, or split. 30 tablet 505Active colestipol (Colestid) 1 g tablet Take 1 g by mouth in the morning and 1 g in the evening.5Active venlafaxine XR (Effexor XR) 75 MG 24 hr capsule Indications:Mild major depression, single episodeTAKE 1 CAPSULE BY MOUTH DAILY DO NOT CRUSH OR CHEW 30 capsule 5Active Active Problems ProblemNoted DateDiagnosed VnbfElzkxhl54/21/2025 Assessment & Plan (02/26/2025 11:06 AM EDT): Continued symptoms and try sulfasalazine. Follow up with GI. Chronic left maxillary htucuonxg45/21/2025 Assessment & Plan (02/26/2025 11:06 AM EDT): Pain in cheek and upper teeth and thickening on MRI. On flonase but not helping. Refer to ENT. Abnormal weight gain02/26/2025 Assessment & Plan (02/26/2025 11:05 AM EDT): Check labs Varicose veins of both lower extremities with pain02/26/2025 Assessment & Plan (02/26/2025 11:07 AM EDT): Swelling and pain. Try lasix and compression. If no improvement can refer to [facility] Cervical gwplikoz22/06/2024adiculopathy of sacral rcvlpp4811/15/2023Traumatic brain injury with loss of andnvzyctuolq36/18/2024rthralgia of upper arm 10/24/2023Gastroesophageal reflux disease without qicsnpfolny79/14/2024 Assessment & Plan (09/20/2023 11:18 AM EDT): Symptoms worse and resume omeprazole. Nummular wkngtl9909/20/2023Mild major depression, single cymicce5009/20/2023 Assessment & Plan (09/20/2023 11:17 AM EDT): Mood controlled but worried about side effects and stop wellbutrin. Try effexor. Chronic nhahuiypyakfgh95/14/2024 Assessment & Plan (09/20/2023 11:18 AM EDT): Symptoms worse and resume medication. Annual physical exam09/20/20231115Utpmgriepug58/14/2024hronic superficial gastritis without ikzjpgpu47/27/2024Generalized anxiety bxjjfuqb87/27/2024 Assessment & Plan (09/20/2023 11:18 AM EDT): Mood controlled but worried about side effects and stop wellbutrin. Try effexor. Irritable bowel syndrome with qgfrmrtu79/27/2024 Assessment & Plan (02/26/2025 11:06 AM EDT): Use lomotil PRN. Follow with GI. Assessment & Plan (09/20/2023 11:17 AM EDT): Symptoms unchanged and continue medication. Follow up with GI. Yobvwshdpmf17/27/2024Migraine without aura and without status migrainosus, not etjesmkmnib47/27/2024Neurocardiogenic eklscfq6209/04/2023 Assessment & Plan (09/20/2023 11:17 AM EDT): Symptoms controlled with midodrine and continue. Increase water intake. Lbhnemxduugq48/27/2024estless leg llzuhfhe76/27/2024 Assessment & Plan (09/20/2023 11:17 AM EDT): Symptoms worse and increase mirapex. Vitamin D vrfhxilisk75/27/2024Seizure htrbcupo66/11/2017 Encounters DateTypeDepartmentCare QlmpXqaaoynchho61/06/2025 9:10 AM EDTOffice Visit [facility] [address] [facility] [address] [place] [address] Tamra Anguiano MD Chronic left maxillary sinusitis (Primary Dx)04/13/2025amb flowsheet [facility] [address] [facility] [address] [place] [address] Tamra Anguiano MD 04/13/20257338Tldlle43/27/2025Refill [facility] [address] [facility] [address] [place] [address] Vandana Shah NP Mild major depression, single episode (Primary Dx)04/02/2025 11:00 AM EDTOffice Visit [facility] [address] [facility] [address] [place] [address] Keila Duke APRN-JAN Migraine without aura and without status migrainosus, not intractable (Primary Dx); Neck pain; Cervical radiculopathy; Cervical dystonia; POTS (postural orthostatic tachycardia syndrome)04/02/2025amb flowsheet [facility] [address] [place] [address] Keila Duke, DOMESTIC MAID-ACID MAKER 04/02/20258486Lrdqhx80/24/0175Lfddbb25/22/2025 11:00 AM EDTAncillary Procedure [facility] [address] [place] [place] [address] Maxillary sinus cyst03/30/20255772Vrjyaz31/15/9936Rmjaox92/27/2025 9:20 AM EDTOffice Visit [facility] [address] [place] [address] [place] [address] Tamra Anguiano MD Maxillary sinus cyst03/04/2025amboo flowsheet [facility] [address] [place] [address] [place] [address] Tamra Anguiano MD 03/04/20255829Molkfi65/21/2025 10:15 AM EDTOffice Visit [facility] [address] [place] [address] Honorio Eaton MD Colitis (Primary Dx); Irritable bowel syndrome with diarrhea; Chronic left maxillary sinusitis; Varicose veins of both lower extremities with pain; Abnormal weight gain; Annual physical exam02/26/2025amboo flowsheet [facility] [address] [place] [address] Honorio Eaton MD 02/25/2025Travelfrom Last 3 Months Family History Medical HistoryRelationNameCommentsIrritable bowel syndromeFatherDon Bird OsteoporosisFatherDon BirdOtherFatherDon BirdRespiratory problemsSeizuresFather Don BirdStrokeFatherDon BirdDiabetesMotherHyperlipidemiaMotherHypertensionMother OtherMotherVaricose VeinsRestless legs syndromeSister 1LindseyRestless legs syndromeSister 2LindseyRelationNameStatusCommentsFatherDon BirdMotherSister 1 LindseyAliveSister 2LindseyAlive Social History Tobacco UseTypesPacks/DayYears UsedDateSmoking Tobacco: Every DayCigarettes Tobacco Cessation:Ready to Q uit: No; Counseling Given: Yes Alcohol UseStandard Drinks/WeekCommentsNot Currently0 (1 standard drink = 0.6 oz pure alcohol)B1300 Health LiteracyAnswerDate RecordedHow often do you need to have someone help you when you read instructions, pamphlets, or other written material from your doctor or pharmacy?Never02/25/2025Humiliation, Afraid, Rape, and Kick questionnaireAnswerDate RecordedWithin the last year, have you been afraid of your partner or ex-partner?No02/25/2025Within the last year, have you been humiliated or emotionally abused in other ways by your partner or ex-partner?No02/25/2025Within the last year, have you been kicked, hit, slapped, or otherwise physically hurt by your partner or ex-partner?No02/25/2025Within the last year, have you been raped or forced to have any kind of sexual activity by your partner or ex-partner?02/25/2025Social Connection and Isolation Panel AnswerDate RecordedIn a typical week, how many times do you talk on the phone with family, friends, or neighbors?More than three times a week02/25/2025How often do you get together with friends or relatives?More than three times a week 02/25/2025How often do you attend restorationism or religion services?More than 4 times per year02/25/2025Do you belong to any clubs or organizations such as restorationism groups, unions, fraternal or athletic groups, or school groups?No02/25/2025How often do you attend meetings of the clubs or organizations you belong to?Never 02/25/2025re you , , , , never , or living with a partner?Ajhfjfhsw11/20/2025UDIT-CAnswerDate RecordedQ1: How often do you have a drink containing alcohol?Never02/25/2025Q2: How many drinks containing alcohol do you have on a typical day when you are drinking?Patient does not drink02/25/2025Q3: How often do you have six or more drinks on one occasion?Never02/25/2025Overall Financial Resource Strain (CARDIA)AnswerDate RecordedHow hard is it for you to pay for the very basics like food, housing, medical care, and heating?Not hard at all02/25/2025[facility] [place] [facility] - Occupational Stress QuestionnaireAnswerDate RecordedDo you feel stress - tense, restless, nervous, or anxious, or unable to sleep at night because yourmind is troubled all the time - these days?To some ofqchq9302/25/2025 Exercise Vital SignAnswerDate RecordedOn average, how many days per week do you engage in moderate to strenuous exercise (like a brisk walk)?3 days02/25/2025On average, how many minutes do you engage in exercise at this level?10 min 02/25/2025Hunger Vital SignAnswerDate RecordedWithin the past 12 months, you worried that your food would run out before you got the money to buymore.Never true02/25/2025Within the past 12 months, the food you bought just didn't last and you didn't have money to get more.Never true02/25/2025PRAPARE - TransportationAnswerDate RecordedIn the past 12 months, has lack of transportation kept you from medical appointments or from getting medications?No 02/25/2025In the past 12 months, has lack of transportation kept you from meetings, work, or from getting things needed for daily living?No02/25/2025 Housing Stability Vital SignAnswerDate RecordedIn the last 12 months, was there a time when you were not able to pay the mortgage or rent on time?No02/25/2025 Number of Times Moved in the Last YearNot on file02/25/2025t any time in the past 12 months, were you homeless or living in a halfway (including now)?No 02/25/2025CommentsUnknownSex and Gender InformationValueDate RecordedSex Assigned at BirthNot on fileLegal WlyYvraog68/15/2023 6:45 PM EDTGender Identity Not on fileSexual OrientationNot on file Last Filed Vital Signs Vital SignReadingTime TakenCommentsBlood Cjbqqsdc25/6910 9:08 AM EDT Gcgfb8916/12/2024 9:08 AM SAVCgkhoajlyzx05.4 ??C (97.5 ??F)02/26/2025 10:23 AM EDTRespiratory Hnni644504/02/2025 11:23 AM EDTOxygen Nlagemwhzg85%04/02/2025 11:23 AM EDTInhaled Oxygen Concentration--Gjigyq24.4 kg (186 lb)04/13/2025 9:08 AM EDT Tmreib063.3 cm (5' 11 )04/13/2025 9:08 AM EDTBody Mass Index25.9404/13/2025 9:08 AM EDT Plan of Treatment DateTypeDepartmentCare Team (Latest Contact Info)Qbdviayucwh37/17/2025 3:00 PM ESTOffice Visit [facility] [address] [place] [address] Keila Duke, DOMESTIC MAID-ACID MAKER [address] [facility] [place] [address] Health MaintenanceDue DateLast DoneCommentsCOVID-19 Vaccine (#1)1985 Pneumococcal Vaccine: Pediatrics (0 to 5 Years) and At-Risk Patients (6 to 64 Years) (1 of 2 - PCV)1999Pap Smear2001Cervical Cancer Screening 2010HPV/Eicsxg0707/26/20101987Eqwfadorm49/18/2021Influenza Vaccine (#1) 2025 Procedures Procedure NamePriorityDate/TimeAssociated DiagnosisCommentsCT SINUS WORoutine 03/30/2025 11:12 AM EDT Maxillary sinus cyst from Last 3 Months Results * CT SINUS WO IV CONTRAST (03/30/2025 11:12 AM EDT)Anatomical RegionLaterality ModalityHead, NeckComputed TomographySpecimen (Source)Anatomical Location / LateralityCollection Method / VolumeCollection TimeReceived Time03/30/2025 3:07 PM EDT Impressions 03/30/2025 3:12 PM EDT Moderate polypoid thickening in the left maxillary sinus. ELECTRONICALLY SIGNED BY: Panfilo Rosario MD Narrative 03/30/2025 3:12 PM EDT HISTORY: Maxillary sinus cyst. Recurring sinus infections. TECHNIQUE: Spiral high resolution axial unenhanced CT images were obtained through the paranasal sinuses with sagittal, coronal reconstructions. All CT scans at this facility use dose modulation, iterative reconstruction, and/or weight based dosing when appropriate to reduce radiation dose to as low as reasonably achievable. COMPARISON: Brain MRI 09/05/2024. RESULT: Sinus Chambers: ?? Moderate polypoid thickening in the inferior left maxillary sinus. Other sinus chambers appear clear. Nasal Cavities: ?? Visualized nasal cavities are patent. Developmental Anomalies: ?? Fairly extensive lateral aeration of the frontal sinuses. Lateral aeration of the sphenoid sinuses. Ostiomeatal Complex: ?? At least partially occluded on the left. Patent on the right. Other: ??The visualized mastoid air cells and middle ear cavities are clear. The visualized soft tissues of the face and orbits are grossy unremarkable. Visualized brain unremarkable. Procedure Note Panfilo Rosario MD - 03/30/2025 HISTORY: Maxillary sinus cyst. Recurring sinus infections. TECHNIQUE: Spiral high resolution axial unenhanced CT images were obtained through the paranasal sinuses with sagittal, coronal reconstructions. All CT scans at this facility use dose modulation, iterativereconstruction, and/or weight based dosing when appropriate to reduceradiation dose to as low as reasonably achievable. COMPARISON: Brain MRI 09/05/2024. RESULT: Sinus Chambers: Moderate polypoid thickening in the inferior leftmaxillary sinus. Other sinus chambers appear clear. Nasal Cavities: Visualized nasal cavities are patent. Developmental Anomalies: Fairly extensive lateral aeration of thefrontal sinuses. Lateral aeration of the sphenoid sinuses. Ostiomeatal Complex: At least partially occluded on the left. Patent onthe right. Other: The visualized mastoid air cells and middle ear cavities areclear. The visualized soft tissues of the face and orbits are grossyunremarkable. Visualized brain unremarkable. IMPRESSION: Moderate polypoid thickening in the left maxillary sinus. ELECTRONICALLY SIGNED BY: Panfilo Rosario MD Authorizing ProviderResult TypeResult StatusHilaMarymount Hospitalashlee [facility] PROC[facility] Final Result from Last 3 Months Insurance Care Teams Team MemberRelationshipSpecialtyStart DateEnd Date Honorio Eaton MD [address] [place] [id number] PCP - [facility]04/08/24 Honorio Eaton MD [address] [place] [address] PCP - [facility]04/13/25
[2025-05-21 20:35] LABS: Alanine Aminotransferase 29 U/L (14-59); Albumin Globulin Ratio 1.2; Albumin Level 3.6 g/dL (3.4-5.0); Alkaline Phosphatase 129 U/L (46-116); Anion Gap 9.5; Aspartate Amino Transferase 15 U/L (15-37); Blood Urea Nitrogen 15.0 mg/dL (7.0-18.0); Calcium 8.8 mg/dL (8.5-10.1); Carbon Dioxide 27.8 mmol/L (21.0-32.0); Chloride 105 mmol/L (98-107); Estimated GFR (African America >60 (>=60 mL/min/1.73m^2); Estimated GFR (Non-African Ame >60 (>=60 mL/min/1.73m^2); Globulin 2.9 g/dL; Glucose 124 mg/dL (74-106); Potassium 3.3 mmol/L (3.5-5.1); Sodium 139 mmol/L (136-145); Total Protein 6.5 g/dL (6.4-8.2)
== END 2025-05-21 21:13 | disposition home or self-care (01) ==
PROVIDERS: Nurse Practitioner Family; Emergency Provider Emergency Medicine; PCP Family Medicine
DX: R00.0 Tachycardia, unspecified (principal)
CPT/HCPCS: 36415; 70450; 71275; 80053; 82948; 84484; 85025; 85378; 93005; 96360; 99285; Q9967